=== PATIENT | male | born 1950 | race Caucasian/White ===

== ENCOUNTER 2022-05-24 08:25 | Outpatient (CLI) | payer MEDICARE, SELFPAY ==
--- OUTSIDE RECORDS SUMMARY | 2022-05-24 08:29 | XMS_ITS | Encounter Summary ---
:1950 Author Organization [facility] Address [address] [place] [id number] Care Team Providers Name Role Phone Aung Almaguer Primary Care Provider Encounter Details Date Type Department Care Team Description 03/13/2021 Travel Social History Tobacco Use Types Packs/Day Years Used Date Smoking Tobacco: Former Cigarettes Quit : 2006 Smokeless Tobacco: Never Alcohol Use Standard Drinks/Week Comments Yes 0 (1 standard drink = 0.6 oz pure alcoho l) one case of beer per week Sex Assigned at Date Recorded Not on file COVID-19 Exposure Response Date Recorded In the last month, have you been in contact with No / Unsure 03/13/2021 10:01 AM [facility] someone who was confirmed or suspected to have Coronavirus / COVID-19? documented as of this encounter Plan of Treatment Not on filedocumented as of this encounter Visit Diagnoses Not on filedocumented in this encounter Care Teams Auto Clutch Specialist Relationship Specialty Start Date End Date Aung Almaguer PCP - General Family Practice 03/02/[address] [facility] [address] [place] [id number] documented as of this encounter
--- OUTSIDE RECORDS SUMMARY | 2022-05-24 08:29 | XMS_ITS | Encounter Summary ---
:1950 Author Organization [facility] Address [address] [place] [id number] Care Team Providers Name Role Phone Aung Almaguer Primary Care Provider Reason for Visit Auth/Cert Specialty Diagnoses / Procedures Referred By Contact Refer red To Contact Surgery Diagnoses Prostate cancer (H) Prostate cancer (H) [C61] Sh Periop Services Procedures ZZC LAPAROSCOPY, SURGICAL PROSTATECTOMY, RETROPUBIC RADICAL, W/NERVE SPARING ROBOT-ASSISTED LAPAROSCOPIC PROSTATECTOMY AND PELVIC LYMPH NODE DISSECTION [address] [place] [address] Phone: Referral ID Status Reason Start Date Expiration Date Visits Requ ested Visits Authorized [id number] 1 1 Encounter Details Date Type Department Care Team Description 03/13/2021 - [facility], Prostate cancer (H) 03/15/2021 Encounter [place] [id number] Mason Mcclure MD (Primary Dx) [facility] [address] [place] [address] [phone] [place] [id number] Social History Tobacco Use Types Packs/Day Years [...] / COVID-19? documented as of this encounter Last Filed Vital Signs Vital Sign Reading Time Taken Comments Blood Pressure 144/72 03/15/2021 7:38 AM CDT Pulse 72 03/15/2021 7:38 AM CDT Temperature 35.8 ??C (96.5 ??F) 03/15/2021 7:38 AM CDT Respiratory Rate 16 03/15/2021 12:00 PM CDT Oxygen Saturation 98% 03/15/2021 7:38 AM CDT Inhaled Oxygen Concentration - - Weight 97.2 kg (214 lb 3.2 oz) 03/13/2021 10:24 AM CDT Height 185.4 cm (6' 1) 03/13/2021 10:24 AM CDT Body Mass Index 28.26 03/13/2021 10:24 AM CDT documented in this encounter Discharge Instructions Discharge InstructionsKeysha Bonilla RN - 03/15/2021 11:32 AM CDT Read and refer to the attached education sheets for additional discharge instructions: 1 Discharge instructions for indwelling urinary catheter 2. Discharge instructions for leg bag AttachmentsThe following attachments cannot be sent through Care Everywhere. Indwelling Urinary Catheter, Discharge Instructions (Barbadian)Leg Bag, Discharge Instructions (Barbadian)documented in this encounter Medications at Time of Discharge Medication Sig Dispensed Refills Start Date End Date allopurinol (ZYLOPRIM) Take 300 mg by mouth 0 300 MG tablet daily amLODIPine (NORVASC) 5 Take 5 mg by mouth 0 MG tablet daily cimetidine (TAGAMET) 800 Take 800 mg by mouth 0 MG tablet daily as needed clobetasol (TEMOVATE) Apply topically 2 0 0.05 % external ointment times daily lisinopril Take 20 mg by mouth 0 (PRINIVIL/ZESTRIL) 20 MG daily tablet oxyCODONE (ROXICODONE) 5 Take 1 tablet (5 mg) 12 tablet 0 0 03/15/2021 MG tabletIndications: by mouth every 6 Prostate cancer (H) hours as needed for pain SENNA-docusate sodium Take 1-2 tablets by 30 tablet 0 03/13 (SENNA S) 8.6-50 MG mouth 2 times daily tabletIndications: as needed Prostate cancer (H) (constipation) SILDENAFIL CITRATE PO Take 80 mg by mouth 0 daily as needed ciprofloxacin (CIPRO) Take 1 tablet (500 6 tablet 0 202003/30/2021 500 MG mg) by mouth 2 times tabletIndications: daily for 3 days To Prostate cancer (H) begin taking the day PRIOR to your appointment for catheter removal documented as of this encounter Progress Notes Elizabeth Lafleur PA-C - 03/15/2021 7:54 AM CDT UROLOGY PROGRESS NOTE HPI/SUBJECTIVE: Feeling well this AM. Reports headache last night but has resolved. Tolerating diet, no nausea, +flatus Ambulated last night, not yet this AM Denies pain and feels less distended than yd HTN up to 179/89, o/w VSS Cr 1.27 Hgb 13.0 Akhtar: 1300/1950 ml MADISON: 65/105 ml OBJECTIVE: BP (!) 144/72 (BP Location: Left arm) Pulse 72 Temp (!) 96.5 ??F (35.8 ??C) (Oral) Resp 15 Ht 1.854 m (6' 1) Wt 97.2 kg (214 lb 3.2 oz) SpO2 98% BMI 28.26 kg/m?? Intake/Output Summary (Last 24 hours) at 03/15/2021 0754 Last data filed at 03/15/2021 0643 Gross per 24 hour Intake 680 ml Output 2055 ml Net -1375 ml General appearance shows no deformaties and good grooming. EYES: no icterus HEAD, EARS, NOSE, MOUTH, AND THROAT: atraumatic, normocephalic NECK: symmetric CHEST WALL: symmetric CARDIAC: skin well perfused RESPIRATORY: breathing unlabored ABDOMEN: soft, appropriately tender, non distended, no rebound or guarding; MADISON with bloody output and bandage in place : Akhtar draining clear urine, no clots, flowing well SKIN/HAIR/NAILS: no visible rashes NEUROLOGIC: no focal deficits PSYCHIATRIC: Speech: normal Mood: normal Affect: normal ASSESSMENT: 70 year old M POD#2 s/p RALP/PLND - Dr Spence. Doing well. PLAN: Encourage ambulation ADAT Pain meds PRN Hand irrigate akhtar PRN for clots MADISON to be removed prior to discharge Home with akhtar - nurse to review akhtar cares Follow up with Dr. Spence in [address] cystogram (AVS updated) Dispo: Anticipate discharge mid-day/early afternoon Elizabeth Lafleur PA-C [facility] [email or web address] Text Page (7:30am to 4:30pm) Wilmer Dowling MD - 03/14/2021 10:58 AM CDT UROLOGY ADDENDUM. CLINICALLY STABLE, SLIGHT HEMATURIA, HAD A CLOT CLEARED. MOVING SLOWLY. HE WOULD LIKE TO STAY TILL AM. [facility] AM. Mason Spence MD - 03/14/2021 9:08 AM CDT Urology Denies significant pain. Not OOB yet. Mike clears. Min UOP since 0600 AVSS UOP 300 MADISON 110 Cr 1.27 Hgb 13 NAD Abd s/nt/nd, incisions c/d/i Scant bettina urine per akhtar MADISON serosang No LE edema POD#1 s/p RALP/PLND - hand irrigated Akhtar; small clot removed then ~350cc bettina urine; bladder irrigated easily then - ADAT - bolus 500 ml NS - stop toradol - ambulate - check MADISON Cr - likely home later today - see me in [address] Cystogram Mason Spence MD 9:11 AM 03/14/21 documented in this encounter H&P Notes Taylor Loya - 03/13/2021 10:37 AM CDT I have reviewed the surgical (or preoperative) H&P that is linked to this encounter, and examined the patient. There are no significant changes Source Note - Milad, Provider - 03/08/2021 11:06 AM CDT documented in this encounter Procedure Notes Mason Spence MD - 03/13/2021 6:42 PM CDT Preoperative Diagnosis: Prostate Cancer Postoperative Diagnosis: Prostate Cancer Procedure: 1. Robotic Radical Prostatectomy with bilateral pelvic lymphadenectomy, modifier 22 Surgeon: Mason Spence MD Senior Project Coordinator: Dai Gamez PA-C Date of Procedure: 03/13/21 OPERATIVE INDICATION: Kyree Webster is a 70 year old male with prostate cancer. After understanding various management options he elected to undergo today's procedure. Clinical stage: [id number] PSA: 9 PRIYA: no nodules MRI findings: PIRADS5 mid lateral right PZ Prostate volume: 90g EPE:unlikely SVI:unlikely Urethral length: LNI:unlikely Biopsy grade: 4+4=8 # cores positive: 2 # cores total: 12 Intraoperative findings: Urethra: good length Right nerve sparing:partial resection Left nerve sparing:partial resection Bladder neck sparing: partial Bladder neck reconstruction: anterior Anastomosis tested:watertight Lymphadenopathy:none Accessory obturator artery/size/spared:none Median lobe: small PORT PLACEMENT: Standard 6 ports After discussing all treatment options, the patient elected to proceed with robotic prostatectomy. The patient understands that we will proceed with robotic prostatectomy, but will convert to open prostatectomy if needed. DESCRIPTION OF PROCEDURE: The patient was identified and was brought to the operating room. He was placed on a Gelfoam padded table. After adequate general anesthesia, he was placed in supine position. Pneumatic compression stockings had been applied. All pressure points were adequately padded. Arms were tucked and he was secured to the table. The patient was then prepped and draped in the usual manner. Time out was called. An 18 [place]ian [place] catheter was placed and the bladder was emptied. I made a small supraumbilical incision. Using a Veress needle, pneumoperitoneum was achieved. I then placed an 8 mm port at this site. Initial endoscopic inspection with a 0 degree lens showed no evidence of vascular or visceral injury. There were moderate adhesions in the LLQ likely from previous diverticulitis. The remaining ports were then placed. Two 8 mm ports were placed on either side 10 cm from the umbilical port. A 12 mm port was placed in the right lower quadrant above the anterior superior iliac spine, and a similar location on the left side an 8 mm port was placed. A 5 mm suction port was placed lateral to the camera port on the right side. With all the ports in place the patient was placed in steep Trendelenburg position and the robot was docked. The sigmoid was gently released from the LLQ and the posterior bladder at the cul-de-sac. I then incised the peritoneum at the bladder base and the posterior dissection was carried beneath Denonvillier's fascia to the prostate apex. The anterior rectal fat was very indurated and adherent to the Denonvilier's fascia making this dissection more challenging. The seminal vesicles and vas deferens were identified and dissected free. The fat around the SVs was also very reactive and this dissection was also very difficult; the periprostatic tissues here and elsewhere appeared reactive. He has a history of previous sepsis of unknown source as well as bile leak with peritonitis; I suspect either of these conditions may have contributed to the dense inflammation around the prostate which increased complexity of this procedure as well as time required by >150%. Next peritoneal incisions were made lateral to the medial umbilical ligaments and the bladder was dissected away from the anterior abdominal wall and pubic ramus to expose the prostate. Again these tissue planes were very reactive. The superficial dorsal vein was cauterized and transected. The endopelvic fascia was opened. Incision was made in the lateral prostatic fascia and nerve-sparing was started in the interfascial plane. Next the anterior bladder wall was incised at the level of the bladder neck. The posterior bladder neck was then excised and dissected away from the base of the prostate. There was a small median lobe.The seminal vesicles and vas deferens were now tented up. This exposed the lateral pedicles. I then proceeded to identify the plane between the lateral prostate and the lateral pedicles. The Vessel sealer ad Hem-O-Vincent clips were used and the lateral pedicle was transected. Partial nerve resection was required due to adhesion of the neurovascular bundles to the prostate. The dissection was carried around the apex of the prostate. Next I transected the deep dorsal vein and then oversewed this with a running 3-0 V-vincent suture. The urethra was transected distal to the apex of the prostate and the prostate was placed in a Endocatch. Excellent urethral length was preserved. Arian-Seal was used to achieve further hemostasis. Small piece of left posterior apex and anterior apex were excised as finalmargins. A bilateral pelvic lymph node dissection was done, removing fibrofatty tissue in the external iliac and obturator areas. Bipolar cautery and hemolock clips were used to ligate lymphatic vessels. The obturator nerve was identified and preserved bilaterally. I then proceeded to anastomose the bladder neck to the urethra using a running suture of 3-0 Monocryl on a double armed needle. An 18 Bulgarian [place] catheter was placed and the bladder irrigated well. A good watertight, tension free anastasmosis was obtained. Further inspection at this time showed no further bleeding. The string of the Endocatch was then brought out through the umbilical port site. A15F MADISON drain was placed through the LLQ port site. The robot was then undocked. The laparoscopic ports were removed under vision and the 12 mm assistant professor of philosophy port was closed with an 0 Vicryl using a Dre Thomasen device I slightly extended the supraumbilical incision and the prostate was removed through this site. The fascia was then closed using running 0 Vicryl sutures. The skin incisions were closed using 4-0 monocryl and Dermabond. The needle, sponge and lap counts were correct. The patient remained stable throughout the entire procedure. The estimated blood loss was: 250 ml. The patient toleratedthe procedure well and was sent to the recovery room in stable condition. Catheter can be removed in 14 days after cystogram documented in this encounter Miscellaneous Notes Plan of Care - Keysha Bonilla RN - 03/15/2021 1:29 PM CDT Nurse shift update Patient discharged at approx 1400 to home IV was reportedly discontinued by NA. Denied pain at time of discharge. Belongings returned to patient. Discharge instructions and medications reviewed with patient. Pt refused leg bag so akhtar stayed to bedside drainage bag for discharge. (Leg bag supplies however were added to akhtar supply bag from home incae pt changed his mind. Patient verbalized understanding and all questions were answered. RX meds filled here and given to pt At time of discharge, patient condition was stable and left the unit via w/c escorted by transport NA. Plan of Care - Keysha Bonilla RN - 03/15/2021 12:23 PM CDT 7am Shift Note: POD#2 Robotic Radical Prostatectomy with bilateral pelvic lymphadenectomy Overall improved Akhtar draining adequate amounts of clear yellow urine. No clots today yet seen Clay Temperer reinforced akhtar care education for home with pt.Pt refuses the leg bag - stating just wants his bedside bag for now since doesn't expect to go anywhere after discharge till his next urology appt. MADISON drain which was draining small amounts of sanguinous fluid last night and this am was removed by order by [employer] nurse Sebastien. -Dressing over MADISON site dry/intact. Extra gauze/tape sent home with pt Rigtht sided headache controlled with Scheduled XS Tylenol. Denies any other pain. Abd soft, and much less distended compared to yesterday since passing flatus. BS present. Tolerated reg diet Has 4 port abd sites with a mini lap mid abd lap above umbilical area. All incisions surgically glued D/I. Abdominal incisions with some erythema A&O x4, up with SBA(for guidance with akhtar). Gait is much steadier today. Was in chair x1 and walked in riddle aROUND NURSE DESK X2 this shift Plan for discharge this afternoon Plan of Care - Devante Grady RN - 03/15/2021 6:03 AM CDT A&Ox4, anxious. VSS on RA ex htn. Pain covered w/ scheduled tylenol. PRN Maalox for heartburn. Up A1 GB, W, ambulated in halls in evening. 4 lap sites to abd, all CDI w/ slight ecchymosis. MADISON drainw/ bright bloody output, dressing CDI. BS+, passing gas. Akhtar draining adequate yellow urine. Tolerating low fiber diet. PIV SL, encouraging PO intake. Plan for discharge home w/ akhtar today. Slept between cares. Plan of Care - Allison Miller, RN - 03/14/2021 7:11 PM CDT 3-7p: S/O came at 5p, we had lots of akhtar education. Video, questions, reassured him he is doing fine. Did NOT want bag changed, still wavering on his discharge tomorrow. S/O and RN both told him he is doing more than fine, and will go home in the morning. Plan of Care - Keysha Bonilla RN - 03/14/2021 1:19 PM CDT 7am Shift Note: POD#1 Robotic Radical Prostatectomy with bilateral pelvic lymphadenectomy Oliguria last creative arts therapist (and bladder scanned @0335 with 0ml output) At that time the order was NOTto irrigate akhtar. Dr Spence arrived at bedside. Hand irrigated akhtar resulting in large clot removed and residual output of 350. New prn orders for hand irrigation of akhtar obtained. Urine turned light red with ambulation in riddle but then improved to watermelon at rest MADISON drain present - dressing over MADISON site reinforced by prev creative arts therapist x1; drainage is contained within the most recent ink boundary outline Scheduled XS Tylenol and prn Oxycodone controlling pain well. Abd soft, BS present. No flatus. Tolerate FL brkfs. Diet advanced to low residue Has 4 port abd sites with a mini lap mid abd lap above umbilical area. All incisions surgically glued D/I. Abdominal incisions with some erythema A&O x4, Unsteady gait. Is up w assist of 1/walker /gaitbelt. Was in chair x2 and walked in riddle x2 this shift Pt refused discharge today due to pain, gastric reflux, weakness. Seen at bedside later am by Dr. Dowling who stated discharge can be postponed till tomorrow. Significant other plans on being here this kirt at approx 1700 thus kirt shift to help with for akhtar care teaching samira pt/S.O. including leg bag/bedside bag switching and emptying bags Discharge pending medical progress Addendum: abd distension, clot seen in tubing of akhtar, urine pink. I hand irrigate x2at 1445 . No further clots obtained after irrigation. Has indigestion - Tums given at 1250. Plan of Care - Alena Lugo RN - 03/14/2021 7:00 AM CDT A&O x4, VSS on 2L of 02; Ax1 GB, W. Pt given PRN Tylenol and Ketorolac; denies pain. Akhtar cathter in place with Bettina output. Bladder scanned @0335 with 0ml output. MADISON drain present; Abdominal incisions with some erythema UPSETTER; Urology following. Pending discharge. documented in this encounter Plan of Treatment Not on filedocumented as of this encounter Procedures Procedure Name Priority Date/Time Associated Comments Diagnosis CREATININE FLUID Routine 03/14/2021 11:39 Results for this AM CDT procedure are i n the results section. HEMOGLOBIN Routine 03/14/2021 6:57 Results for this AM CDT procedure are i n the results section. CREATININE Routine 03/14/2021 6:57 Results for this AM CDT procedure are i n the results section. GLUCOSE BY METER Routine 03/14/2021 6:53 Results for this AM CDT procedure are i n the results section. SURGICAL PATHOLOGY EXAM Routine 03/13/2021 1:56 R esults for this PM CDT procedure are i n the results section. PROSTATECTOMY, 03/13/2021 11:06 Prostate cancer ROBOT-ASSISTED, USING DA AM CDT (H) YOLANDE XI, WITH PELVIC LYMPHADENECTOMY TYPE AND SCREEN, ADULT STAT 03/13/2021 10:28 R esults for this AM CDT procedure are i n the results section. POTASSIUM STAT 03/13/2021 10:28 Results for this AM CDT procedure are i n the results section. ABO/RH TYPE AND SCREEN STAT 03/13/2021 10:28 R esults for this AM CDT procedure are i n the results section. LAB RESULT - HIM SCAN 02/22/2021 12:00 AM CDT EKG CARDIAC - HIM SCAN 02/22/2021 12:00 AM CDT documented in this encounter Results Creatinine fluid (03/14/2021 11:39 AM CDT) athologist Signature Creatinine 1.2 mg/dL 03/14/2021 LABORATORY fluid 1:34 PM CDT Specimen Anatomical Collection Method Collection Time Receive d Time (Source) Location / / Volume Laterality Body fluid, unsp DRAIN / Unknown Non-blood 03/14/2021 11:39 08/11/2020 Collection / AM CDT 12:01 PM CDT Unknown Narrative LABORATORY - 03/14/2021 1:34 PM CDT No reference ranges have been establishe d. ??This result should be interpreted in the context of the patient's clinical condit ion and compared to simultaneous measurement in the patient's blood. Mason Spence MD LAB - BODY FLUIDS USAMA GILLETTE Performing Organization Address City/State/ZIP Code [place] [address] [phone] [facility] [address]st floor, Room [address]B (ABNORMAL) Hemoglobin (03/14/2021 6:57 AM CDT) athologist Signature Hemoglobin 13.0 (L) 13.3 - 17.7 03/14/2021 LABORATORY g/dL 7:33 AM CDT Specimen Anatomical Collection Method / Collection Time Recei samira Time (Source) Location / Volume Laterality Blood STRUCTURE OF RIGHT Venipuncture / 03/14/2021 6:57 08/2 11/2020 7:31 UPPER LIMB / Unknown AM CDT AM CDT Unknown Dai Gamez PA-C LAB - BLOOD ORDERABLES Performing Organization Address City/State/ZIP Code Phon e Number [place] [address] [phone] [facility] [address], Room [address]B (ABNORMAL) Creatinine (03/14/2021 6:57 AM CDT) athologist Signature Creatinine 1.27 (H) 0.66 - 03/14/2021 LABORATORY 1.25 mg/dL 7:54 AM CDT GFR Estimate 56 (L) >60 03/14/2021 LABORATORY mL/min/1.7 7:54 AM CDT 3m2 Comment: As of January 28, 2021, eGFR is ca lculated by the CKD-EPI creatinine equation, without race adjustment. eGFR can be inf luenced by muscle mass, exercise, and diet. The reported eGFR is an estimation only and is only applicable if the renal function is stable. Specimen Anatomical Collection Method / Collection Time Recei samira Time (Source) Location / Volume Laterality Blood STRUCTURE OF RIGHT Venipuncture / 03/14/2021 6:57 02/19 7:31 UPPER LIMB / Unknown AM CDT AM CDT Unknown Dai Gamez PA-C LAB - BLOOD ORDERABLES Performing Organization Address City/State/ZIP Code Phon e Number [place] [address] [phone] [facility] [address], [address] Glucose by meter (03/14/2021 6:53 AM CDT) athologist Signature GLUCOSE BY 99 70 - 99 03/14/2021 LABORATORY METER POCT mg/dL 6:59 AM CDT POC Specimen Anatomical Collection Method Collection Time Receive d Time (Source) Location / / Volume Laterality Blood BLOOD SPECIMEN / 03/14/2021 6:53 AM 03/14 6:59 Unknown CDT AM CDT Mason Spence MD [facility] PO[facility] Performing Organization Address City/State/ZIP Code Phon [place] [address] [facility] [address] [place] 1st floor, Room [address]B (ABNORMAL) Surgical Pathology Exam (03/13/2021 1:56 PM CDT) Component Value Ref Test Analysis Performed Pathologis t Range Method Time At Signature Case Report Surgical Pathology Report ? Case: [id number] ? 2021 Authorizing Provider: ??Mason Campbell ? Collected: ? 03/13/2021 01:56 PM ? 1:46 PM LABORATOR Y ? MD Ren ? CDT [facility] ?Received: ?03/14/2021 08:48 AM ? [facility] OR ? Pathologist: ? Austen Gomez MD ? Specimens: ?? A) - Prostate, PROSTATE and [place] vescicles ? B) - Lymp h Node(s), RIGHT PELVIC LYMPH NODES ? C) - Pelv is, ADELITA- PROSTATIC FAT ? D) - Lymp h Node(s), LEFT PELVIC LYMPH NODES ? E) - Pelv is, LEFT APEX MARGIN ? F) - Pelv is, ANTERIOR APEX MARGIN ? Addendum Additional immunohistochemic al stains were performed for P504S/p63 on blocks A29 and A33 confirming the presence of intraductal carcinoma in the prostate in addition to the areas of invasive malignancy. 2021 Addendum These foci consists of broa d dilated ducts with a cribriform pattern of neoplastic cell proliferation positive for racemase with a partially intact cytokeratin positive basal cell layer. This finding is confirmed in intradepartmental consultation. 1:46 PM LABORATOR Y electronically CDT signed by The immunohistochemical dwayne n control is reviewed showing an appropriate reaction pattern for interpretation of the stain. (Austen Gomez MD, 2021) Austen Gomez MD on 2021 at 1:46 PM Final A. Right prostatectomy with bilateral seminal vesicles: 2021 Electronically Diagnosis (see synoptic diagnosis - summary below) 1:46 PM LABORATORY signed by - Prostatic adenocarcinoma, small acinar cell type: CDT Austen Gomez - WHO Grade Group 2 (see comment) MD Armaan on - [place] score 7, patterns 3 + 4 03/18/2021 at - Proportion of prostatic t issue involved by tumor: 2% (see comment for tumor volume calculation) 5:41 PM - Intraductal carcinoma: See comment - Perineural invasion: Present (block A33) - Angiolymphatic invasion: Present (block A29) - Margins: Negative for mal ignancy (nearest margin 0.7 mm from right posterior margin, block A29) B. Right pelvic lymph nodes: - POSITIVE for metastatic pr ostate carcinoma in 1 of 4 lymph nodes (4.5 mm focus without extranodal extension) C. Adelita-prostatic fat: - Negative for malignancy, benign fatty tissue without lymph nodes. D. Left pelvic lymph nodes: - Negative for malignancy in 3 or 3 lymph nodes E. Left apex margin: - Negative for malignancy F. Anterior apex margin: - Negative for malignancy Comment Comment 1: Intradepartmental consultation was obtained. 2021 1:46 PM LABORATORY Comment 2: Immunohistochemic al stains are pending to further evaluate for the presence of intraductal carcinoma, the findings to follow as an addendum to this report. CDT Comment 3: Digital images ar e included in the report with links present at the bottom of the [facility] online report. For best visualization of the images, after opening with left click, right click on the image and select size to fit. Comment 4: Process used to d etermine the tumor volume as percent of total prostate: (1) Total volume of prostate = 56 x 50 x 48 mm = 089996 mm3 (2) Greatest total volume o f tumor = Tumor length over entirety of slices submitted x Average area of tumor in slices (a) Tumor length over sections sliced = (Number of sequential slice s involved by tumor / Total slices) x Total length of prostate sectioned = (12/16) x 56 = 42 mm (b) Greatest tumor area of any slice = 15 sections with tumor, 12 from right posterior lobe with one right anterior lobe and two from the central posterior prostate, with areas of tumor on the slides a s follows, all blocks right posterior unless otherwise speci fied: A9: 4.3 x 3.8 mm = 16 mm area of tumor A11: 9 x 7 mm = 63 mm area of tumor A13: 8 x 6 mm = 48 mm area of tumor A15: 3.3 x 2.0 mm = 6.6 mm area of tumor A17: 1.2 x 0.9 mm = 1.1 mm area of tumor A19: 1.0 x 0.4 mm = 0.4 mm area of tumor A21 7 x 5 mm = 35 mm area of tumor A23: 7 x 5 mm = 35 mm area of tumor (Right anterior lobe se ction) A24: 18 x 6 mm = 108 mm area of tumor A27: 18 x 9 mm = 162 mm area of tumor A29: 18 x 10 mm = 180 mm area of tumor A30: 7 x 4 mm = 28 mm area of tumor (Central posterior sect ion)) A32: 10 x 4 mm = 40 mm area of tumor A33: 18 x 12 mm = 216 mm area of tumor (Central posterior s ection) A38: 10 x 3 mm = 30 mm area of tumor AVERAGE AREA OF TUMOR ON SLIDES = (16+63+48+6.6+1.1+0.4+35+35 +108+162+180+28+40+216+30)/15 x 100 = 65 mm2 average cross sectional area TUMOR VOLUME IN PROSTATE = Length of tumor in slices x average area = 42 mm x 65 mm2 = 2730 mm3 TOTAL PROSTATE VOLUME = 56 x 50 x 48 mm = 058714 mm3 PERCENTAGE OF TUMOR BY VOLUME IN PROSTATE = ([id number]/963863) x 100 = 2.0% Comment 5: The template for prostate cancer on needle biopsy was adapted from the following references. In 2016 the [employer] an[employer] adopted a new system for grading prostate cancer (reference 2) with the benefits of (a) more accurate grade stratification than the current [place] system; (b) simp lified grading system of 5 o pposed to multiple possible scores depending on various [place] pattern combinations; (c) lowest grade 1 as opposed to current practice of [place] score 6, with the potential to reduce overtreatment of indolent prostate cancer. The new grading scheme corre lates with the prior [place] grading system as follows: Grade Group 1 = [place] score 6 or less Grade Group 2 = [place] score 3+4=7 Grade Group 3 = [place] score 4+3 = 7 Grade Group 4 = [place] score 8 Grade Group 5 = [place] score 9-10 REFERENCES (1) [employer] Cancer Protocols and Checklists, December 2011. (2) Richard SANCHEZ, Joann THRASHER, Sadia HILLS, et al. A contemporary prostate cancer grading system: A validating alternative to the Jolanta score. Eur Urol (2015) Synoptic PROSTATE GLAND: Radical Pros tatectomy ??(PROSTATE GLAND: RADICAL PROSTATECTOMY - All Specimens) 2021 Checklist 1:46 PM LABORATORY 8th Edition - Protocol posted: 09/15/2019 CDT SPECIMEN ?? Procedure: ?Radical prostatectomy ?? Prostate Size: ? Prostate Weight (g): ?95 g ? Prostate Greatest Dimension (Centimeters): ?5.6 c m ? Additional Dimension (Centimeters): ?5 cm ? Additional Dimension (Centimeters): ?4.8 cm TUMOR ?? Histologic Type: ?Acinar adenocarcinoma ?? Histologic Grade: ? Grade Group and Gleas on Score: ?Grade group 2 ([place] Score 3 + 4 = 7) ? Percentage of Pattern 4: ?5 % ?? Tumor Quantitation: ?Estimated percentage of prostate involved by tumor: 2.0 % ?? Tumor Quantitation: ?Greatest Dimenion of Dominant Nodule (Millimeters): 18 mm ? Additional Dimension (Millimeters): ?10 mm ? Location of Dominant Nodule: ?Right posterior lob e ?? Extraprostatic Extension (EPE): ?Not identified ?? Urinary Bladder Neck Invasion: ?Not identified ?? Seminal Vesicle Invasion: ?Not identified ?? Treatment Effect: ?No known presurgical therapy ?? Lymphovascular Invasion: ?Present ?? Perineural Invasion: ?Present MARGINS ?? Margins: ?Uninvolved by invasive carcinoma LYMPH NODES ?? Number of Lymph Nodes Involved: ?1 ? Site(s): ?Pelvic NOS ? Laterality: ?Right ?? Size of Largest Metastatic Deposit (Centimeters): ?0 .45 cm ?? Size of Largest Lymph Node Involved (Centimeters): ? 1.5 cm ?? Extranodal Extension: ?Not identified ?? Number of Lymph Nodes Examined: ?7 PATHOLOGIC STAGE CLASSIFICATION (pTNM, AJCC 8th Edition) ? Primary Tumor (pT): ?pT2 ?? Regional Lymph Nodes (pN): ?pN1 ADDITIONAL FINDINGS ?? Additional Findings: ?High-grade prostatic intraepithelial neoplasia (PIN) ?? Additional Findings: ?Inflammation (type): Chronic l ymphocytic Clinical 70 year old male with 2021 Information PSA at outside 1:46 PM [facility] ([facility]) of CDT 10.25. MRI showed Hypointense T2 irregular marginated lesion 1.5 x 1.2 x 0.7 cm right peripheral zone 7 o`clock, mid gland, Summary: Suspicious lesion with decreased T2 signal, restricted diffusion and enhancement in the right peripheral zone. PI-RADS Category = 5 . No evidence of EPE or krystal enlarged nodes. Case Images 2021 1:46 PM LABORATORY CDT Gross A(1). Prostate, PROSTATE and [place] vescicles: 2021 Description The specimen is received in formalin labeled with the patient's name, medical record number, and other identifying information and designated prostate and seminal vesicles. It consists of a 95 g radic 1:46 PM LABORATORY al prostatectomy specimen me asuring 5.0 cm apex to base x 5.6 cm transversely x 4.8 cm anterior to posterior. The right and left seminal vesicles measure 3.2 x 2.0 x 1.1 cm and 3.3 x 1.5 x 1.5 cm respec CDT tively. The right and left v asa deferentia measure 4.5 cm in length x 0.5 cm in diameter and 3.3 cm in length x 0.5 cm diameter, respectively. The left side of the prostate is inked black, and the right side is inked blue. The kendrick dder neck and distal urethral margins are coned and submitted entirely. The specimen is serially sectioned from apex to base into 16 slices, revealing a pink-negron, focally nod ular cut surface. No discret e tumor nodules are noted grossly. Managing Manager sections including the entire posterior aspect are submitted. Summary of Sections: A1 - right seminal vesicle and en face vas deferens margin A2 - left seminal vesicle and en face vas deferens margin A3-A4 - right bladder neck margin A5-A6 - left bladder neck margin A7 - right distal urethral margin A8 - left distal urethral margin A9-slice 1, right posterior Q73-sqyzn 1, left posterior P12-bxvuy 2, right posterior J59-bgbbn 2, left posterior L94-vweju 3, right posterior Q23-mnvzv 3, left posterior I10-edgmy 4, right posterior E96-jjlag 4, left posterior H95-tvucz 5, right posterior A62-swarw 5, left posterior T44-kfvle 6, right posterior T40-sjynl 6, left posterior D86-eeuou 7, right posterior S59-sazed 7, left posterior K93-mjztw 8, right anterior W30-zcoos 8, right posterior D66-ttobl 8, left anterior C62-moacz 8, left posterior Y98-khbbv 9, right posterior J58-lgtzz 9, left posterior A90-mkidp 10, right posterior B29-tnajw 10, central posterior Y67-xtuyd 10, left posterior K55-rwzwb 11, right posterior T54-bryev 11, central posterior V13-pqulc 11, left posterior M22-ljveh 12, right posterior N34-ysqaz 12, central posterior Q63-mhmqg 12, left posterior F98-znhlh 13, right posterior F83-xgygo 13, left posterior J36-nbdqz 14, right posterior E73-wewqz 14, left posterior K35-mzqjb 15, right posterior Z98-inuki 15, left posterior J84-vqsft 16, right posterior B14-baozd 16, left posterior B(2). Lymph Node(s), RIGHT PELVIC LYMPH NODES: The specimen is received in formalin labeled with the patient's name, medical record number and other identifying information and designated right pelvic lymph nodes. It consists of 7 yellow-negron focal ly fatty replaced potential lymph nodes ranging from 0.2-3.2 cm in greatest dimension. The lymph nodes are entirely submitted. Summary of sections: B1-4 intact potential lymph nodes B2-1 bisected potential lymph node B3-B4-1 sectioned potential lymph node B5-B6-1 bisected potential lymph node C(3). Pelvis, ADELITA- PROSTATIC FAT : The specimen is received in formalin labeled with the patient's name, medical record number and other identifying information and designated periprostatic fat. It consists of a 5.0 x 3.5 x 1.0 cm aggr egate of yellow-negron adipose tissue. Sectioning reveals 3 yellow-negron, focally disrupted potential lymph nodes ranging from 0.8-3.0 cm in greatest dimension. The lymph nodes are entirely submitted. Summary of sections: C1-1 intact potential lymph node C2-1 bisected potential lymph node C3-C4-1 bisected potential lymph node D(4). Lymph Node(s), LEFT PELVIC LYMPH NODES: The specimen is received in formalin labeled with the patient's name, medical record number and other identifying information and designated left pelvic lymph nodes. It consists of 5 yellow-negron focall y fatty replaced potential l ymph nodes ranging from 0.5-3.5 cm in greatest dimension. The lymph nodes are entirely submitted. Summary of sections: D1-3 intact potential lymph nodes D2-D3-1 bisected potential lymph node D4-D8-1 sectioned potential lymph node E(5). Pelvis, LEFT APEX MARGIN : The specimen is received in formalin labeled with the patient's name, medical record number and other identifying information and designated left apex margin. It consists of a single 0.8 x 0.4 x 0.4 c m abdi-negron focally cauterize d soft tissue fragment. Entirely submitted in 1 cassette. F(6). Pelvis, ANTERIOR APEX MARGIN: The specimen is received in formalin labeled with the patient's name, medical record number and other identifying information and designated anterior apex margin. It consists of a single 0.8 x 0.5 x 0 .3 cm abdi-negron focally caute rized soft tissue fragment. Entirely submitted in 1 cassette. (NOHEMI Cox ASCP CM) Microscopic A. Sections of the prostate show areas of small acinar type adenocarcinoma identified in the blocks as noted below with the areas of tumor as described. Each of the blocks being from the right posterior 2021 SH Description lobe except where otherwise specified. The majority of the tumor present is [place] pattern 3 with focal areas of cribriform [place] pattern 4 which appears to comprise 5% of the total tumor volume ove 1:46 PM LABORATORY rall. The tumor and area of malignancy is identi fied in the following blocks: CDT A9: 4.3 x 3.8 mm = 16 mm area of tumor A11: 9 x 7 mm = 63 mm area of tumor A13: 8 x 6 mm = 48 mm area of tumor A15: 3.3 x 2.0 mm = 6.6 mm area of tumor A17: 1.2 x 0.9 mm = 1.1 mm area of tumor A19: 1.0 x 0.4 mm = 0.4 mm area of tumor A21 7 x 5 mm = 35 mm area of tumor A23: 7 x 5 mm = 35 mm area of tumor (Right anterior lobe se ction) A24: 18 x 6 mm = 108 mm area of tumor A27: 18 x 9 mm = 162 mm area of tumor A29: 18 x 10 mm = 180 mm area of tumor A30: 7 x 4 mm = 28 mm area of tumor (Central posterior sect ion)) A32: 10 x 4 mm = 40 mm area of tumor A33: 18 x 12 mm = 216 mm area of tumor (Central posterior s ection) A38: 10 x 3 mm = 30 mm area of tumor And limited focus of perineu ral invasion is present in block A33. A single focus of lymphovascular invasion is present in block A29. The margins of resection are clear with the nearest margin being 0.7m m from the right posterior m argin in block A29. No areas of extraprostatic extension are identified. The prostate shows multifocal areas of high-grade prostatic intraepithelial neoplasia in addition to the areas of malignancy. Yaritza luation for intraductal carcinoma is presently pending immunohistochemical stains with an addendum to follow. B. A 4.5 mm focus of metasta tic small acinar type prostatic carcinoma is present in 1 of 4 lymph nodes identified. The tumor in this area shows a sheetlike arrangement of cribriforming glands with nucle ar atypia. No areas of extraprostatic extension are seen. C. The sections show benign fatty tissue with no evidence of lymph nodes. No malignancy is identified. D. No evidence of malignancy is identified in the two lymph nodes confirmed from the tissue submitted. E. The sections show benign prostate tissue with no atypical cellular proliferations or malignancy. F. The sections show benign prostate tissue with no atypical cellular proliferations or malignancy. (Austen Gomez MD, 03/18/2021) Special Immunohistochemical 2021 Stains stains to 1:46 PM LABORATORY [id number] are CDT pending on blocks A29 and A33 to evaluate for the presence of intraductal carcinoma with an addendum to follow with the results of these stains. MCRS Yes (A) N/A 2021 SH 1:46 PM LABORATORY CDT Performing The technical 2021 Labs component of this 1:46 PM LABORATORY testing was completed CDT at [facility] Laboratory Specimen Anatomical Collection Method Collection Time Receive d Time (Source) Location / / Volume Laterality Tissue [place] / 03/13/2021 5:33 PM 2020 8:48 Unknown CDT AM CDT Tissue specimen STRUCTURE OF LYMPH 03/13/2021 6:04 PM 03/14/2021 8:48 (specimen) NODE / Unknown CDT AM CDT Tissue specimen [place] / 03/13/2021 1:56 PM 8:48 (specimen) Unknown CDT AM CDT Tissue specimen STRUCTURE OF LYMPH 03/13/2021 6:04 PM 03/14/2021 8:48 (specimen) NODE / Unknown CDT AM CDT Tissue specimen [place] / 03/13/2021 4:12 PM 8:48 (specimen) Unknown CDT AM CDT Tissue specimen [place] / 03/13/2021 4:14 PM 8:48 (specimen) Unknown CDT AM CDT Narrative This result has an attachment that is no t available. Mason DUMAS - JEB Performing Organization Address City/State/ZIP Code Phon e Number LABORATORY [facility] [place], [place] [address] [facility] [address] 1st floor, Room [address] Adult Type and Screen (03/13/2021 10:28 AM CDT) Patholo gist Method Time Signature ABO/RH(D) O POS 03/13/2021 BLOOD 10:15 AM BANK CDT Antibody Negative Negative 03/13/2021 BLOOD Screen 10:15 AM BANK CDT SPECIMEN [id number] 03/13/2021 BLOOD EXPIRATION 10:15 AM BANK DATE CDT Specimen Anatomical Collection Method / Collection Time Recei samira Time (Source) Location / Volume Laterality Blood STRUCTURE OF RIGHT Venipuncture / 03/13/2021 10:28 UPPER LIMB / Unknown AM CDT 10:34 AM CDT Unknown Sandra Cobian PA-C LAB - BLOOD BANK TEST ORDER Performing Organization Address City/State/ZIP Code Phon e Number BLOOD BANK [address] [place] [address] Potassium (03/13/2021 10:28 AM CDT) P athologist Signature Potassium 3.9 3.4 - 5.3 03/13/2021 LABORATORY mmol/L 10:57 AM CDT Specimen Anatomical Collection Method / Collection Time Recei samira Time (Source) Location / Volume Laterality Blood STRUCTURE OF RIGHT Venipuncture / 03/13/2021 10:28 UPPER LIMB / Unknown AM CDT 10:34 AM CDT Unknown Taylor Loya LAB - BLOOD ORDERABLES Performing Organization Address City/State/ZIP Code Phon e Number LABORATORY [facility] [place], [place] [address] Care [facility] [address] 1[address], [address] LAB RESULT - HIM SCAN (02/22/2021 12:00 AM CDT) Specimen (Source) Anatomical Location Collection Method / Collectio n Time Received Time / Laterality Volume 02/22/2021 Narrative This result has an attachment that is no t available. Provider Scan [facility]AK[facility] LAB TESTING EKG CARDIAC - HIM SCAN (02/22/2021 12:00 AM CDT) Specimen (Source) Anatomical Location Collection Method / Collectio n Time Received Time / Laterality Volume 02/22/2021 Narrative This result has an attachment that is no t available. Provider Scan ECG ORDERABLES documented in this encounter Visit Diagnoses Diagnosis Prostate cancer (H) - Primary Malignant neoplasm of prostate Prostate cancer (H) Malignant neoplasm of prostate documented in this encounter Admitting Diagnoses Diagnosis Prostate cancer (H) Malignant neoplasm of prostate documented in this encounter Administered Medications Inactive Administered Medications - up to 3 most recent administrations Medication Order MAR Action Action Date Dose Rate Site 0.9% sodium chloride BOLUS New Bag 03/14/2021 9:18 AM CDT 500 mLs 125 mL/hr Intravenous, 500 mL, ONCE, at 125 mL/hr, Administer over 4 Hours, On Fri03/14/21 at 0900, For 1 dose acetaminophen (TYLENOL) tablet 975 mg Given 03/13/2021 10:34 AM CDT 975 mg 975 mg, Oral, ONCE, On Fri03/13/21 at 1030, For 1 dose, Maximum acetaminophen dose from all sources = 75 mg/kg/day not to exceed 4 grams/day., Pre-procedure acetaminophen (TYLENOL) tablet 975 mg Given 03/15/2021 8:34 AM CDT 975 mg 975 mg, Oral, EVERY 6 HOURS RT, First dose on Fri03/13/21 at 2000, For 3 days, Administer for multimodal surgical pain management. Maximum acetaminophen dose from all sources = 75 mg/kg/day not to exceed 4 grams/day. Given 03/15/2021 2:13 AM CDT 975 mg Given 03/14/2021 9:04 PM CDT 975 mg alum & mag hydroxide-simethicone (MAALOX) Given 2020 11:06 PM CDT 2 tablets 200-200-25 MG chewable tablet 2 tablet 2 tablet, Oral, EVERY 6 HOURS PRN, indigestion, Starting on Fri03/14/21 at 1309 amLODIPine (NORVASC) tablet 5 mg Given 03/15/2021 8:35 AM CDT 5 mg 5 mg, Oral, DAILY, First dose on Fri03/13/21 at 2000 Given 03/14/2021 9:09 AM CDT 5 mg Given 03/13/2021 9:01 PM CDT 5 mg calcium carbonate (TUMS) chewable tablet 500 Given 2:52 PM CDT 500 mg mg 500 mg, Oral, DAILY PRN, heartburn, Starting on Fri03/14/21 at 1309 ceFAZolin (ANCEF) 1 g vial to attach to NS 100 New Bag 0 03/14/2021 2:48 PM CDT 1 g ml bag for ADULT or 50 ml bag for PEDS Routine, 1 g, Intravenous, EVERY 8 HOURS, First dose on Fri03/13/21 at 2200, For 3 doses, Indications: Perioperative Pharmacoprophylaxis New Bag 03/14/2021 6:25 AM CDT 1 g New Bag 03/13/2021 9:01 PM CDT 1 g HYDROmorphone (DILAUDID) injection 0.2 m g 0.2 mg, Intravenous, EVERY 2 HOURS PRN, other, moderate pain (pain rating 4-6) IF patient unable to take oral pain medication or pain no t controlled with oral analgesics, Starting on Fri03/13/21 at 1 948, Hold IV PRN opioid dose for analgesic side effects. Notify provider to assess for uncontroll ed pain or analgesic side effects. HYDROmorphone (DILAUDID) injection 0.4 m g 0.4 mg, Intravenous, EVERY 2 HOURS PRN, other, severe pain (pain rating 7-10) IF patient unable to take oral pain medication or pain no t controlled with oral analgesics, Starting on Fri03/13/21 at 1 948, Hold IV PRN opioid dose for analgesic side effects. Notify provider to assess for uncontroll ed pain or analgesic side effects. ketorolac (TORADOL) injection 15 mg Given 03/14/2021 6:25 AM CDT 15 mg 15 mg, Intravenous, EVERY 6 HOURS, First dose on Fri03/13/21 at 2300, For 5 days, Can cause pain on injection. If ordered intravenously (IV) : administer through a running maintenance fluid over 1 minute followed by a flush. If patient complains of pain on injection, may dilute 15-30 mg in 5 mL and push over 1 to 2 minutes. Given 03/13/2021 10:51 PM CDT 15 mg labetalol (NORMODYNE/TRANDATE) injection 5 mg Given 03/13/2021 6:47 PM CDT 5 mg 5 mg, Intravenous, EVERY 5 MIN PRN, other, for Systemic Blood Pressure greater than 160 mmHg and Heart Rate greater than 60 bpm, Starting on Fri03/13/21 at 1820, For 4 doses, For PACU USE ONLY. Please call Anesthesiologist PRIOR to administration. PROTECT FROM LIGHT.For ordered doses up to 80 mg, give IV Push undiluted. Give each 20 mg over 2 minutes. lactated ringers infusion New Bag 03/13/2021 5:50 PM CDT at 25 mL/hr, Intravenous, CONTINUOUS, IF patient NOT on dialysis., Pre-procedure, Starting on Fri03/13/21 at 1030, Until Fri03/13/21 at 1840 New Bag 03/13/2021 12:25 PM CDT New Bag 03/13/2021 10:49 AM CDT 25 mL/hr lisinopril (ZESTRIL) tablet 20 mg Given 03/15/2021 8:35 AM CDT 20 mg 20 mg, Oral, DAILY, First dose on Fri03/14/21 at 0800 Given 03/14/2021 9:09 AM CDT 20 mg naloxone (NARCAN) injection 0.2 mg 0.2 mg, Intravenous, EVERY 2 MIN PRN, op ioid reversal, Starting on Fri03/13/21 at 1958, Administer intravenous route when available and notify provider when administered. For unintended sedation or respiratory depression if all of the below criteria are met: ~ respiratory rate LES S than or EQUAL to 8. ~SaO2 less than 92% and or/end-tidal CO2 is greater than 50. ~ the patient is receiving an opioid, has unintended sedations assessed as RASS (-3), and is cur rently not on mechanical ventilation. RASS scale moderate (-3) is movement or eye opening to voice but no eye contact. Patient Monitoring Once the patient has demonstrated a response to the naloxone, continue to monitor respiratory rate, depth, oxygen saturation and end-tidal CO2 (if available) every 15 mi nutes x 2, then every 30 minutes x 2, then every 1 hour x 1 after each naloxone dose. Consider tr ansfer to ICU if patient respiratory parameters have not improved after 4 nalox one doses. For ordered IV doses 0.1-2mg give IVP. Give each 0.4mg over 15 seconds in emergency situations. For non-emergent situations further dilu te in 9mL of NS to facilitate titration of response. naloxone (NARCAN) injection 0.2 mg 0.2 mg, Intramuscular, EVERY 2 MIN PRN, opioid reversal, Starting on Fri03/13/21 at 1957, Administer intramuscular if an int ravenous route is not available and notify provider when administered. For unintend ed sedation or respiratory depression if all of the below criteria are met: ~ respiratory rate LESS than or EQUAL to 8. ~SaO2 less than 92% and or/end-tidal CO2 is greater th an 50. ~ the patient is receiving an opioid, has unintended sedations assessed as RASS (-3), and is currently not on mechanical ventilation. RASS scale moderate (-3) is movement or eye opening to voice but no eye contact. Patient Monitoring Once the patient has demonstrated a response to the naloxone, continue to m onitor respiratory rate, depth, oxygen saturation and end-tidal CO2 (if availab le) every 15 minutes x 2, then every 30 minutes x 2, then every 1 hour x 1 after each naloxone dose. Consider transfer to ICU if patient respiratory parameters have not improved after 4 naloxone doses. For ordered IV doses 0.1-2mg give IVP. Give each 0.4mg over 15 seconds in emergency situations. For non -emergent situations further dilute in 9mL of NS to facilitate titration of response. naloxone (NARCAN) injection 0.4 mg 0.4 mg, Intravenous, EVERY 2 MIN PRN, op ioid reversal, Starting on Fri03/13/21 at 1957, Administer intravenous route when available and notify provider when administered. For unintended sedation or respiratory depression if all of the below criteria are met: ~ respiratory rate LES S than or EQUAL to 8. ~ SaO2 less than 92% and or/end-tidal CO2 is greater than 50. ~ the patient is receiving an opioid, has unintended sedation assessed as RASS (-4 ) or (-5) and patient is currently not on mechanical ventilation. RASS scale (-4) is deep sedation with no response to voice but movement or eye opening to physical stimulation. R ASS scale (-5) is unarousable. Patient Monitoring Once the patient has demonstrated a response to the naloxone, continue to monitor respiratory rate, depth, oxygen saturation and end-tidal CO2 (if available) every 15 mi nutes x 2, then every 30 minutes x 2, then every 1 hour x 1 after each naloxone dose. Consider tr ansfer to ICU if patient respiratory parameters have not improved after 4 nalox one doses. For ordered IV doses 0.1-2mg give IVP. Give each 0.4mg over 15 seconds in emergency situations. For non-emergent situations further dilu te in 9mL of NS to facilitate titration of response. naloxone (NARCAN) injection 0.4 mg 0.4 mg, Intramuscular, EVERY 2 MIN PRN, opioid reversal, Starting on Fri03/13/21 at 1957, Administer intramuscular if an int ravenous route is not available and notify provider when administered. For unintend ed sedation or respiratory depression if all of the below criteria are met: ~ res piratory rate LESS than or EQUAL to 8. ~ SaO2 less than 92% and or/end-tidal CO2 is greater chante n 50. ~ the patient is receiving an opioid, has unintended sedation assessed as RASS (-4) or (-5) and patient is currently not on mechanical ventilation. RA SS scale (-4) is deep sedation with no response to voice but movement or eye opening to physical stimulation. RASS scale (-5) is unarousa ble. Patient Monitoring Once the patient has demonstrated a response to the nalox one, continue to monitor respiratory rate, depth, oxygen saturation and end-tidal CO2 (if availab le) every 15 minutes x 2, then every 30 minutes x 2, then every 1 hour x 1 after each naloxone dose. Consider transfer to ICU if patient respiratory parameters have not improved after 4 naloxone doses. For ordered IV doses 0.1-2mg give IVP. Give each 0.4mg over 15 seconds in emergency situations. For non -emergent situations further dilute in 9mL of NS to facilitate titration of response. ondansetron (ZOFRAN) injection 4 mg 4 mg, Intravenous, EVERY 6 HOURS PRN, nausea, vomiting , Administer over 2-5 Minutes, Starting on Fri03/13/21 at 1947, This is Step 1 of nausea and vomiting management. If nausea not resolved in 15 minutes, go t o Step 2 prochlorperazine (COMPAZINE). Irritant. For ordered IV do ses 0.1-4 mg, give IV Push undiluted over 2-5 minutes. ondansetron (ZOFRAN-ODT) ODT tab 4 mg Given 03/13/2021 10:50 PM CDT 4 mg 4 mg, Oral, EVERY 6 HOURS PRN, nausea, vomiting, Starting on Fri03/13/21 at 1948, This is Step 1 of nausea and vomiting management. If nausea not resolved in 15 minutes, go to Step 2 prochlorperazine (COMPAZINE). Do not push through foil backing. Peel back foil and gently remove. Place on tongue immediately. Administration with liquid unnecessary With dry hands, peel back foil backing and gently remove tablet. Do not push oral disintegrating tablet through foil backing. Administer immediately on tongue and oral disintegrating tablet dissolves in seconds, then swallow with saliva. Liquid not required. oxyCODONE (ROXICODONE) tablet 10 mg 10 mg, Oral, EVERY 4 HOURS PRN, severe p ain, (pain rating 7-10), Starting on Fri03/13/21 at 8, Hold oral PRN dose for analgesic side effects. Notify provider to assess for uncontrolled pain or analgesic side effects . Hold while on IV LEAK DETECTOR or with regular IV opioid dosing. oxyCODONE (ROXICODONE) tablet 5 mg Given 03/14/2021 11:44 AM CDT 5 mg 5 mg, Oral, EVERY 4 HOURS PRN, other, moderate pain (pain rating 4-6), Starting on Fri03/13/21 at 1948, Hold oral PRN dose for analgesic side effects. Notify provider to assess for uncontrolled pain or analgesic side effects. Hold while on IV LEAK DETECTOR or with regular IV opioid dosing. Given 03/14/2021 10:08 AM CDT 5 mg prochlorperazine (COMPAZINE) injection 5 mg 5 mg, Intravenous, EVERY 6 HOURS PRN, nausea, vomiting , Administer over 1-2 Minutes, Starting on Fri03/13/21 at 1948, This is Step 2 of nausea and vomiting management. If nausea not resolved in 15 -30 minutes, Notify provider. For ordered IV doses 0.1-10 mg, give IV push undiluted, each 5 mg over 1 minute. prochlorperazine (COMPAZINE) tablet 5 mg 5 mg, Oral, EVERY 6 HOURS PRN, nausea, v omiting, Starting on Fri03/13/21 at 1948, This is Step 2 of nausea and vomiting ma bharathi. If nausea not resolved in 15-30 minutes, Notify provider. sodium chloride (PF) 0.9% PF flush 3 mL Given 03/14/2021 8:28 PM CDT 3 mLs 3 mL, Intracatheter, EVERY 8 HOURS, First dose on Fri03/13/21 at 2000, to lock peripheral IV dormant line sodium chloride 0.9% infusion Restarted 03/14/2021 1:16 PM CDT 75 mL/hr at 75 mL/hr, Intravenous, CONTINUOUS, Starting on Fri03/13/21 at 2000, Until Fri03/15/21 at 1534 New Bag 03/13/2021 8:09 PM CDT 75 mL/hr documented in this encounter Active and Recently Administered Medications Times are shown in CDT. Scheduled Medication Order 03/13/2021 03/14/2021 03/15/2021 0.9% sodium chloride BOLUS (COMPLETED) 0 918 (New Bag - Provider: Keysha Bonilla RN)1315 (Stopped - Provider: Keysha Bonilla RN) Intravenous, 500 mL, ONCE, at 125 mL/hr, Administer over 4 Hours, On Fri03/14/21 at 0900, For 1 dose acetaminophen (TYLENOL) tablet 975 mg (COMPLETED) 1034 (Given - Provider: Radha Fay RN) 975 mg, Oral, ONCE, On Fri03/13/21 at 10 30, For 1 dose, Maximum acetaminophen dose from all sources = 75 mg/kg/day not to exceed 4 grams/day., Pre-procedure acetaminophen (TYLENOL) tablet 975 mg 2100 (Given - Pr ovider: Alena Lugo RN) 0334 (Given - Provider: Alena romero RN)0909 (Given - Provider: Keysha Bonilla RN)1451 (Given - Provider: Keysha Bonilla RN - Comment: schedule tylenol for abd discomfort)2104 (Given - Provider: Devante Grady RN) 0213 (Given - Provider: Devante Grady RN)0834 (Given - Provider: Keysha Bonilla LIUDMILA)1400 (Canceled Entry - Provider: Orders Generic Provider - Comment: Automatically canceled at discontinue of medication order) 975 mg, Oral, EVERY 6 HOURS, First dose on Fri03/13/21 at 2000, For 3 days, Administer for multimodal surgical pain management. Maximum acetaminophen dose from all sources = 75 mg/kg/day not to exceed 4 grams/day. amLODIPine (NORVASC) tablet 5 mg 210 (Given - Provider: Daniela Lugo RN) 0909 (Given - Provider: Keysha Bonilla, ILUDMILA) 0835 (Given - Provider: Keysha Bonilla, LIUDMILA) 5 mg, Oral, DAILY, First dose on Fri03/13/21 at 2000 ceFAZolin (ANCEF) 1 g vial to attach to NS 100 ml bag for ADULT or 50 ml bag for PEDS (COMPLETED) 210 (New Bag - Provider: Alena Lugo RN) 0625 (New Bag - Provider: Alena Lugo RN)1448 (New Bag - Provider: Keysha Bonilla RN) Routine, 1 g, Intravenous, EVERY 8 HOURS , First dose on Fri03/13/21 at 2200, For 3 doses, Indications: Perioperative Pharmacoprophylaxis ceFAZolin (ANCEF) intermittent infusion 2 g in 100 mL dextrose PRE-MIX (COMPLETED) 1035 (Handoff - Provider: Radha hope RN)1128 (Given - Provider: Joann Taylor APRN PATIENT SERVICES REP)1531 (Given - Provider: Margie Nieves APRN PATIENT SERVICES REP) Routine, 2 g, Intravenous, PRE-OP/PRE-MN OCEDURE, Starting on Fri03/13/21 at 1011, For 1 dose, Give first dose within 1 hour PRIOR to incision. If patient weight is greater than or equal to 120 kg increa se dose to 3 g., Indications: Perioperative Pharmacoprophyla xis, Pre-procedure ketorolac (TORADOL) injection 15 mg (CANCELED) 2251 (G iven - Provider: Alena Luog RN) 0625 (Given - Provider: Alena Lugo RN) 15 mg, Intravenous, EVERY 6 HOURS, First dose on Fri03/13/21 at 2300, For 5 days, Can cause pain on injection. If ordered intravenously (IV) : administer through a running maintenance fluid over 1 minut e followed by a flush. If patient compla ins of pain on injection, may dilute 15- 30 mg in 5 mL and push over 1 to 2 minutes. lisinopril (ZESTRIL) tablet 20 mg 0909 (Given - Provider: Keysha Bonilla, LIUDMILA) 0835 (Given - Provider: Keysha Bonilla RN) 20 mg, Oral, DAILY, First dose on Fri03/14/21 at 0800 sodium chloride (PF) 0.9% PF flush 3 mL 2229 (Not Give n - Provider: Corrie Catalan RN - Reason: IV Infusing) 0403 (Not Given - Provider: Corrie Catalan RN - Reason: IV Infusing)1200 (Not Given - Provider: Keysha Bonilla RN - Reason: IV Infusing)2028 (Given - Provider: Devante Grady RN) 0511 (Canceled Entry - Provider: Devante Grady RN)1200 (Canceled Entry - Provider: Orders Generic Provider - Comment: Automatically canceled at discontinue of medication order) 3 mL, Intracatheter, EVERY 8 HOURS, Firs t dose on Fri03/13/21 at 2000, to lock peripheral IV dormant line Continuous Medication Order 03/13/2021 03/14/2021 03/15/2021 lactated ringers infusion (CANCELED) 1049 (New Bag - P rovider: Radha Fay RN)1106 (Canceled Entry - Provider: Joann Taylor APRN CRNA - Comment: Switch to gravity)1107 (Canceled Entry - Provider: Joann Taylor APRN CRNA) at 25 mL/hr, Intravenous, CONTINUOUS, IF patient NOT on dialysis., Pre- procedure, Starting on Fri03/13/21 at 1030, Until Fri03/13/21 at 1840 1224 (Paused - Provider: Joann Taylor APRN CRNA - Comment: Switch to gravity)1225 (New Bag - Provider: Joann Taylor APRN CRNA)1750 (New Bag - Provider: Margie R Ezequiel, MANAGER [place] PATIENT SERVICES REP) 1827 (Anesthesia Volume Adju stment - Provider: Margie Nieves, COSMO PATIENT SERVICES REP)2028 (Stopped - Provider: Alena Lugo, LIUDMILA) sodium chloride 0.9% infusion 2008 (New Bag - Provider: Lashaun Lugo, LIUDMILA) 0922 (Stopped - Provider: Keyhsa Bonilla RN - Comment: stopped while 500cc fluid bolus infusing]]])1316 (Restarted - Provider: Keysha Bonilla, LIUDMILA)1700 (Stopped - Provider: Keysha Bonilla RN - Comment: IV fluis reportedly stopped this kirt shift b at 75 mL/hr, Intravenous, CONTINUOUS, St arting on Fri03/13/21 at 2000, Until Fri03/15/21 at 1534 y other nurse (not story writer)) PRN Medication Order 03/13/2021 03/14/2021 03/15/2021 alum & mag hydroxide-simethicone (MAALOX ) 200-200-25 MG chewable tablet 2 tablet 2306 (Given - Provider: Devante Grady RN) 2 tablet, Oral, EVERY 6 HOURS PRN, indigestion, Starti ng on Fri03/14/21 at 1309 bupivacaine (MARCAINE) 0.5% injection MDV (CANCELED) 1 837 (Given - Provider: Mason Spence MD) PRN, Starting on Fri03/13/21 at 1837, Intra-procedure calcium carbonate (TUMS) chewable tablet 500 mg 1452 (Given - Provider: Keysha Bonilla RN) 500 mg, Oral, DAILY PRN, heartburn, Starting on Fri03/14/21 at 1 309 HYDROmorphone (DILAUDID) injection 0.2 mg(Linked Group 1) 0.2 mg, Intravenous, EVERY 2 HOURS PRN, other, moderate pain (pain rating 4-6) IF patient unable to take oral pain medication or pain not controlled with oral analgesics, Starting on Fri03/13/21 at 1948 , Hold IV PRN opioid dose for analgesic side effects. Notify provider to assess for uncontrolled pain or analgesic side effects. HYDROmorphone (DILAUDID) injection 0.4 mg(Linked Group 1) 0.4 mg, Intravenous, EVERY 2 HOURS PRN, other, severe pain (pain rating 7-10) IF patient unable to take oral pain medication or pain not controlled with oral analgesics, Starting on Fri03/13/21 at 1947, Hold IV PRN opioid dose for analgesic s desmond effects. Notify provider to assess for uncontrolled pain or analgesic side effects. labetalol (NORMODYNE/TRANDATE) injection 5 mg (CANCELE D) 1846 (Given - Provider: Jason Hammonds RN) 5 mg, Intravenous, EVERY 5 MIN PRN, othe r, for Systemic Blood Pressure greater than 160 mmHg and Heart Rate greater than 60 bpm, Starting on Fri03/13/21 at 1820, For 4 doses, For PACU USE ONLY. Please c all Anesthesiologist PRIOR to administra tion. PROTECT FROM LIGHT.For ordered doses up to 80 mg, give IV Push undiluted. Give each 20 mg over 2 minutes. lidocaine (LMX4) cream Topical, EVERY 1 HOUR PRN, pain, with VA D insertion, Starting on Fri03/13/21 at 1947, Apply at least 30 minutes prior to VAD insertion in divided doses as needed for size of site for insertion. MAX Dose : 2.5 g (?? of 5 g tube) Do NOT give if patient has a history of allergy to any local anesthetic or any magdiel product. Do NOT use both lidocaine intradermal/subcutaneous injection and the lidocaine cream on the same site. lidocaine (XYLOCAINE) 5 % ointment Topical, 4 TIMES DAILY PRN, other, ureth ral irritation, Starting on Fri03/13/21 at 1947, Apply to urethral meatus. lidocaine 1 % 0.1-1 mL 0.1-1 mL, Other, EVERY 1 HOUR PRN, mild pain with VAD insertion, Starting on Fri03/13/21 at 1947, MAX dose 1 mL subcutaneous OR intradermal along the side of the vein in divided doses as needed for VAD insertion. Do NOT give if patient has a history of allergy to any local anesthetic or any magdiel product. Do NOT use both lidocaine intradermal/subcutaneous injection and the lidocaine cream on the same site. naloxone (NARCAN) injection 0.2 mg(Linked Group 2) 0.2 mg, Intravenous, EVERY 2 MIN PRN, op ioid reversal, Starting on Fri03/13/21 at 1957, Administer intravenous route when available and notify provider when administered. For unintended sedation or resp iratory depression if all of the below c riteria are met: ~ respiratory rate LESS than or EQUAL to 8. ~SaO2 less than 92% and or/end-tidal CO2 is greater than 50. ~ the patient is receiving an opioid, dickson s unintended sedations assessed as RASS (-3), and is currently not on mechanical ventilation. RASS scale moderate (-3) is movement or eye opening to voice but no eye contact. Patient Monitoring Once the patient has demonstrated a response to the naloxone, continue to monitor respiratory rate, depth, oxygen saturation and end-tidal CO2 (if available) every 15 minutes x 2, then every 30 minutes x 2, the n every 1 hour x 1 after each naloxone d ose. Consider transfer to ICU if patient respiratory parameters have not improved after 4 naloxone doses. For ordered IV doses 0.1-2mg give IVP. Give each 0.4mg o jorge 15 seconds in emergency situations. For non-emergent situations further dilute in 9mL of NS to facilitate titration of response. naloxone (NARCAN) injection 0.2 mg(Linked Group 2) 0.2 mg, Intramuscular, EVERY 2 MIN PRN, opioid reversal, Starting on Fri03/13/21 at 1957, Administer intramuscular if an intravenous route is not available and notify provider when administered. For uni ntended sedation or respiratory depressi on if all of the below criteria are met: ~ respiratory rate LESS than or EQUAL to 8. ~SaO2 less than 92% and or/end-tidal CO2 is greater than 50. ~ the patient is receiving an opioid, has unintended sed ations assessed as RASS (-3), and is currently not on mechanical ventilation. RASS scale moderate (-3) is movement or eye opening to voice but no eye contact. Pat ient Monitoring Once the patient has dem onstrated a response to the naloxone, continue to monitor respiratory rate, depth, oxygen saturation and end-tidal CO2 (if available) every 15 minutes x 2, then e very 30 minutes x 2, then every 1 hour x 1 after each naloxone dose. Consider transfer to ICU if patient respiratory parameters have not improved after 4 naloxone doses. For ordered IV doses 0.1-2mg giv e IVP. Give each 0.4mg over 15 seconds i n emergency situations. For non-emergent situations further dilute in 9mL of NS to facilitate titration of response. naloxone (NARCAN) injection 0.4 mg(Linked Group 2) 0.4 mg, Intravenous, EVERY 2 MIN PRN, op ioid reversal, Starting on Fri03/13/21 at 1957, Administer intravenous route when available and notify provider when administered. For unintended sedation or resp iratory depression if all of the below c riteria are met: ~ respiratory rate LESS than or EQUAL to 8. ~ SaO2 less than 92% and or/end-tidal CO2 is greater than 50. ~ the patient is receiving an opioid, h as unintended sedation assessed as RASS (-4) or (-5) and patient is currently not on mechanical ventilation. RASS scale (-4) is deep sedation with no response to voice but movement or eye opening to phy sical stimulation. RASS scale (-5) is un arousable. Patient Monitoring Once the patient has demonstrated a response to the naloxone, continue to monitor respiratory rate, depth, oxygen saturation and end -tidal CO2 (if available) every 15 minut es x 2, then every 30 minutes x 2, then every 1 hour x 1 after each naloxone dose. Consider transfer to ICU if patient respiratory parameters have not improved af ter 4 naloxone doses. For ordered IV dos es 0.1-2mg give IVP. Give each 0.4mg over 15 seconds in emergency situations. For non-emergent situations further dilute in 9mL of NS to facilitate titration of response. naloxone (NARCAN) injection 0.4 mg(Linked Group 2) 0.4 mg, Intramuscular, EVERY 2 MIN PRN, opioid reversal, Starting on Fri03/13/21 at 1957, Administer intramuscular if an intravenous route is not available and notify provider when administered. For uni ntended sedation or respiratory depressi on if all of the below criteria are met: ~ respiratory rate LESS than or EQUAL to 8. ~ SaO2 less than 92% and or/end- tidal CO2 is greater than 50. ~ the patient i s receiving an opioid, has unintended se dation assessed as RASS (-4) or (-5) and patient is currently not on mechanical ventilation. RASS scale (-4) is deep sedation with no response to voice but moveme nt or eye opening to physical stimulatio n. RASS scale (-5) is unarousable. Patient Monitoring Once the patient has demonstrated a response to the naloxone, continue to monitor respiratory rate, depth, o xygen saturation and end-tidal CO2 (if a vailable) every 15 minutes x 2, then every 30 minutes x 2, then every 1 hour x 1 after each naloxone dose. Consider transfer to ICU if patient respiratory paramet ers have not improved after 4 naloxone d oses. For ordered IV doses 0.1-2mg give IVP. Give each 0.4mg over 15 seconds in emergency situations. For non-emergent situations further dilute in 9mL of NS to facilitate titration of response. ajagvmif-kvhuvsbutl-fuujcfgkc (NEOSPORIN) ointment Topical, 4 TIMES DAILY PRN, urethral irr itation, Starting on Fri03/13/21 at 1947, Apply to urethral meatus. ondansetron (ZOFRAN) injection 4 mg(Linked Group 3) 22 50 (See Alternative - Provider: Alena Lugo RN) 4 mg, Intravenous, EVERY 6 HOURS PRN, na usea, vomiting, Administer over 2-5 Minutes, Starting on Fri03/13/21 at 1947, This is Step 1 of nausea and vomiting management. If nausea not resolved in 15 minut es, go to Step 2 prochlorperazine (NIRMALA ZINE). Irritant. For ordered IV doses 0.1-4 mg, give IV Push undiluted over 2-5 minutes. ondansetron (ZOFRAN-ODT) ODT tab 4 mg(Linked Group 3) 2250 (Given - Provider: Alena Lugo RN) 4 mg, Oral, EVERY 6 HOURS PRN, nausea, v omiting, Starting on Fri03/13/21 at 1947, This is Step 1 of nausea and vomiting management. If nausea not resolved in 15 minutes, go to Step 2 prochlorperazine (C OMPAZINE). Do not push through foil back ing. Peel back foil and gently remove. Place on tongue immediately. Administration with liquid unnecessary With dry hands, peel back foil backing and gently remov e tablet. Do not push oral disintegratin g tablet through foil backing. Administer immediately on tongue and oral disintegrating tablet dissolves in seconds, then swallow with saliva. Liquid not required. oxyCODONE (ROXICODONE) tablet 10 mg(Linked Group 4) 1008 (See Alternative - Provider: Keysha Bonilla RN)1144 (See Alternative - Provider: Keysha Bonilla RN) 10 mg, Oral, EVERY 4 HOURS PRN, severe p ain, (pain rating 7-10), Starting on Fri03/13/21 at 1947, Hold oral PRN dose for analgesic side effects. Notify provider to assess for uncontrolled pain or analge sic side effects. Hold while on IV LEAK DETECTOR or with regular IV opioid dosing. oxyCODONE (ROXICODONE) tablet 5 mg(Linked Group 4) 1008 (Given - Provider: Keysha Bonilla RN - Comment: upper abd pain, akhtar site abd)1144 (Given - Provider: Keyhsa Bonilla RN - Comment: AOOB PAIN AND AKHTAR CATH SITE PAIN - OXY REPEATED) 5 mg, Oral, EVERY 4 HOURS PRN, other, mo derate pain (pain rating 4-6), Starting on Fri03/13/21 at 1947, Hold oral PRN dose for analgesic side effects. Notify provider to assess for uncontrolled pain or analgesic side effects. Hold while on IV LEAK DETECTOR or with regular IV opioid dosing. prochlorperazine (COMPAZINE) injection 5 mg(Linked Group 5) 5 mg, Intravenous, EVERY 6 HOURS PRN, na usea, vomiting, Administer over 1-2 Minutes, Starting on Fri03/13/21 at 1947, This is Step 2 of nausea and vomiting management. If nausea not resolved in 15-30 mi nutes, Notify provider. For ordered IV d oses 0.1-10 mg, give IV push undiluted, each 5 mg over 1 minute. prochlorperazine (COMPAZINE) tablet 5 mg(Linked Group 5) 5 mg, Oral, EVERY 6 HOURS PRN, nausea, v omiting, Starting on Fri03/13/21 at 1947, This is Step 2 of nausea and vomiting management. If nausea not resolved in 15-30 minutes, Notify provider. senna-docusate (SENOKOT-S/PERICOLACE) 8.6-50 MG per tablet 1 tab let 1 tablet, Oral, 2 TIMES DAILY PRN, const ipation, Starting on Fri03/13/21 at 1947, To prevent constipation. Hold for loose stools Hold for loose stools. sodium chloride (PF) 0.9% PF flush 3 mL 3 mL, Intracatheter, EVERY 1 MIN PRN, li ne flush, other, to ensure patency or to lock dormant line, Starting on Fri03/13/21 at 1948 sodium chloride 0.9% (bag) irrigation (CANCELED) 1216 (Given - Provider: Mason Spence MD) PRN, Starting on Fri03/13/21 at 1216, Intra-procedure sodium chloride 0.9% (bottle) irrigation (CANCELED) 11 46 (Given - Provider: Mason Spence MD) PRN, Starting on Fri03/13/21 at 1146, Intra-procedure sterile water (bottle) irrigation (CANCELED) 1216 (Giv en - Provider: Mason Spence MD) PRN, Intra-procedure, Starting on Fri at 1216, Until Fri03/13/21 at 1840 Linked Groups Order Group 1: HYDROmorphone (DILAUDID) injection 0.2 mgJump to med 0.2 mg, Intravenous, EVERY 2 HOURS PRN, other, moderate pain (pain rating 4-6) IF patient unable to take oral pain medication or pain not controlled with oral analgesics, Starting on Fri03/13/21 at 1948
Hold IV PRN opioid dose for analgesi c side effects. Notify provider to assess for uncontrolled pain or analgesic side effects.
Or HYDROmorphone (DILAUDID) injection 0.4 mgJump to med 0.4 mg, Intravenous, EVERY 2 HOURS PRN, other, severe pain (pain rating 7-10) IF patient unable to take oral pain medication or pain not controlled with oral analgesics, Starting on Fri03/13/21 at 1948& lt;br>Hold IV PRN opioid dose for analge sic side effects. Notify provider to assess for uncontrolled pain or analgesic side effects.
Group 2: naloxone (NARCAN) injection 0.2 mgJump to med 0.2 mg, Intravenous, EVERY 2 MIN PRN, op ioid reversal, Starting on Fri03/13/21 at 1958
Administer intravenous route when available and notify provider when administered. For unintended sedation or respiratory depression if a ll of the below criteria are met: ~ respiratory rate LESS than or EQUAL to 8. ~SaO2 less than 92% and or/end- tidal CO2 is greater than 50.& nbsp;~ the patient is receiving an opioi d, has unintended sedations assessed as RASS (-3), and is currently not on mechanical ventilation. RASS scale moderate (-3) is movement or eye opening to voice but no eye contact.&nbs p; Patient Monitoring Once the patient has demonstrated a response to the naloxone, continue to monitor respiratory rate, depth, oxygen satu ration and end-tidal CO2 (if available) every 15 minutes x 2, then every 30 minutes x 2, then every 1 hour x 1 after each naloxone dose. Consider transfer to ICU if patient respirator y parameters have not improved after 4 n aloxone doses. For ordered IV doses 0.1-2mg give IVP. Give each 0.4mg over 15 seconds in emergency situations. For non-emergent situations further dilute in 9mL of NS to facilitate titration of response.
Or naloxone (NARCAN) injection 0.4 mgJump to med 0.4 mg, Intravenous, EVERY 2 MIN PRN, op ioid reversal, Starting on Fri03/13/21 at 1957
Administer intravenous route when available and notify provider when administered. For unintended sedation or respiratory depression if a ll of the below criteria are met: ~ respiratory rate LESS than or EQUAL to 8. ~ SaO2 less than 92% and or/end- tidal CO2 is greater than 50.& nbsp;~ the patient is receiving an opioi d, has unintended sedation assessed as RASS (-4) or (-5) and patient is currently not on mechanical ventilation. RASS scale (-4) is deep sedati on with no response to voice but movemen t or eye opening to physical stimulation. RASS scale (-5) is unarousable. Patient Monitoring On ce the patient has demonstrated a respon se to the naloxone, continue to monitor respiratory rate, depth, oxygen saturation and end-tidal CO2 (if available) every 15 minutes x 2, then every 30 minutes x 2, then every 1 hour x 1 after each nalo xone dose. Consider transfer to ICU if patient respiratory parameters have not improved after 4 naloxone doses. For ordered IV doses 0 .1-2mg give IVP. Give each 0.4mg over 15 seconds in emergency situations. For non-emergent situations further dilute in 9mL of NS to facilitate titration of response.
Or naloxone (NARCAN) injection 0.2 mgJump to med 0.2 mg, Intramuscular, EVERY 2 MIN PRN, opioid reversal, Starting on Fri03/13/21 at 1958
Administer intramuscular if an intravenous route is not available and notify provider when administered. For unintended sedation or respira tory depression if all of the below criteria are met: ~ respiratory rate LESS than or EQUAL to 8. ~SaO2 less than 92% and or/end-tidal CO2 is greater than 50. ~ the patient i s receiving an opioid, has unintended sedations assessed as RASS (-3), and is currently not on mechanical ventilation. RASS scale moderate (-3) is movement or eye opening to voice but no eye contact. Patient Monitoring Once the patient has demonstrated a response to the naloxone, continue to monitor respiratory rate, depth, oxygen saturation and end-t idal CO2 (if available) every 15 minutes x 2, then every 30 minutes x 2, then every 1 hour x 1 after each naloxone dose. Consider transfer to [facility] if patient respiratory parameters hav e not improved after 4 naloxone doses. For ordered IV doses 0.1-2mg give IVP. Give each 0.4mg over 15 seconds in emergency situations. For non-emergent s ituations further dilute in 9mL of NS to facilitate titration of response.
Or naloxone (NARCAN) injection 0.4 mgJump to med 0.4 mg, Intramuscular, EVERY 2 MIN PRN, opioid reversal, Starting on Fri03/13/21 at 1958
Administer intramuscular if an intravenous route is not available and notify provider when administered. For unintended sedation or respira tory depression if all of the below criteria are met: ~ respiratory rate LESS than or EQUAL to 8. ~ SaO2 less than 92% and or/end-tidal CO2 is greater than 50. ~ the patient i s receiving an opioid, has unintended sedation assessed as RASS (-4) or (-5) and patient is currently not on mechanical ventilation. RASS s silvia (-4) is deep sedation with no respo nse to voice but movement or eye opening to physical stimulation. RASS scale (-5) is unarousable. Patien t Monitoring Once the patient has d emonstrated a response to the naloxone, continue to monitor respiratory rate, depth, oxygen saturation and end-tidal CO2 (if available) every 15 minutes x 2, then every 30 minutes x 2, then every 1 hour x 1 after each naloxone dose. Consider transfer to ICU if patient respiratory parameters have not improved after 4 naloxone doses.&nbs p;For ordered IV doses 0.1-2mg give IVP. Give each 0.4mg over 15 seconds in emergency situations. For non-emergent situations further dilute in 9mL of NS to facilitate titration of response.
Group 3: ondansetron (ZOFRAN-ODT) ODT tab 4 mgJump to med 4 mg, Oral, EVERY 6 HOURS PRN, nausea, v omiting, Starting on Fri03/13/21 at 1948
This is Step 1 of nausea and vomiting management. If nausea not resolved in 15 minutes, go to Step 2 prochlorperazine (COMPAZINE). Do not push through foil backing. Peel back foil and gently remove. Place on tongue immediately. Administration with liquid unnecessary With dry hands, pee l back foil backing and gently remove ta blet. Do not push oral disintegrating tablet through foil backing. Administer immediately on tongue and oral disintegrating tablet dissolves in seconds, then swallow with saliva. Liquid not required.
Or ondansetron (ZOFRAN) injection 4 mgJump to med 4 mg, Intravenous, EVERY 6 HOURS PRN, na usea, vomiting, Administer over 2-5 Minutes, Starting on Fri03/13/21 at 1947
This is Step 1 of nausea and vomiting management. If naus ea not resolved in 15 minutes, go to Pete p 2 prochlorperazine (COMPAZINE). Irritant. For ordered IV doses 0.1-4 mg, give IV Push undiluted over 2-5 minutes.
Group 4: oxyCODONE (ROXICODONE) tablet 5 mgJump to med 5 mg, Oral, EVERY 4 HOURS PRN, other, mo derate pain (pain rating 4-6), Starting on Fri03/13/21 at 1947
Hold oral PRN dose for analgesic side effects. Notify provider to assess for uncontrolled pain or analgesic side effects. Ho ld while on IV LEAK DETECTOR or with regular IV opioid dosing.
Or oxyCODONE (ROXICODONE) tablet 10 mgJump to med 10 mg, Oral, EVERY 4 HOURS PRN, severe p ain, (pain rating 7-10), Starting on Fri03/13/21 at 1947
Hold oral PRN dose for analgesic side effects. Notify provider to assess for uncontrolled pain o r analgesic side effects. Hold whi le on IV LEAK DETECTOR or with regular IV opioid dosing.
Group 5: prochlorperazine (COMPAZINE) injection 5 mgJump to med 5 mg, Intravenous, EVERY 6 HOURS PRN, na usea, vomiting, Administer over 1-2 Minutes, Starting on Fri03/13/21 at 1947
This is Step 2 of nausea and vomiting management. If nausea not re solved in 15-30 minutes, Notify provider . For ordered IV doses 0.1-10 mg, give IV push undiluted, each 5 mg over 1 minute.
Or prochlorperazine (COMPAZINE) tablet 5 mgJump to med 5 mg, Oral, EVERY 6 HOURS PRN, nausea, v omiting, Starting on Fri03/13/21 at 1948
This is Step 2 of nausea and vomiting management. If nausea not resolved in 15-30 minutes, Notify provider.
documented in this encounter Care Teams Asset Protection Specialist Relationship Specialty Start Date End Date Aung Almaguer PCP - General Family Practice 03/02/19 [facility] [address] [place] [address] documented as of this encounter
--- OUTSIDE RECORDS SUMMARY | 2022-05-24 08:29 | XMS_ITS | Encounter Summary ---
:1950 Author Care Team Providers Name Role Phone Aung Almaguer MD Primary Care Provider [phone] Reason for Visit Malignant tumor of prostate Assessment and Plan Assessment Note 71M s/p RALP + PLND on 03/13/21 for pT2N 1 [place] 3+4=7 prostate cancer (-SMS, - SVI, 07/27 LN). 1) Prostate cancer - PSA today 0.04 - discussed ADT vs observation, prefers observation for now - f/u 3 months with PSA - if PSA detectable, consider PSMA based on PSA level - will likely need start ADT due to N+ d isease 2) Lymphoceles - resolved, drains removed 3) Erectile dysfunction - ICI per Dr Collazo 1. Malignant tumor of prostate ? PSA, serum or plasma 2. Lymphocele 3. Secondary erectile dysfunction Discussion Note: None recorded.Patient educational handouts: No information available. Plan of Care Reminders Provider Appointments [facility] 07/04/2022 2:00PM [facility] ? Established 07/04/2022 2:10PM Mason Plascencia MD Lab PSA, Serum or Plasma 03/06/2022 [facility] Referral None recorded. ? ? Procedures None recorded. ? ? Surgeries None recorded. ? ? Imaging None recorded. ? ? Medications Name Start Date ? ? allopurinol 300 mg tablet ? TAKE 1 TABLET BY MOUTH ONCE DAILY amlodipine 5 mg tablet ? TAKE 1 TABLET BY MOUTH ONCE DAILY clobetasol 0.05 % topical ointment ? lisinopril 20 mg tablet ? TAKE 1 TABLET BY MOUTH ONCE DAILY Trimix 30 papaverine/1 phentolamine/10 PGE-1 ? 30 papaverine/1 phentolamine/10 PGE-1 inject 10 units intracavernosal as dire cted PRN for sexual activity. titrate by 5 units until desired response. Medications Administered None recorded. Vitals Height Weight BMI 6 ft 1 in 208 lbs 27.4 kg/m2 Results Lab Results Date Name Specimen Result Interpretation Description Value Range Status Address ? 03/06/2022 PSA, Serum or ? PSA, Total 0.04 ng/ml ? ? [facility]: [address] Allergies Code Code System Name Reaction Severity Onset NKDA ? ? ? Problems Name Status Onset Date Source ? Malignant Tumor of Prostate Active 01/04/2021 ? Lymphocele Active 04/06/2021 ? Secondary Erectile Dysfunction Active 07/11/2021 ? Procedures Date Name Performed by ? 08/07/2018 Colonoscopy Information not avai lable Notes: Never ? Anastomosis of Cystic Duct Information n ot available ? Cholecystectomy Information not avai lable ? Vasectomy Information not avai lable Vaccine List Vaccine Type pneumococcal conjugate PCV 13 03/23/2018 Social History Tobacco Smoking Status Former Smoker (1 pack per day) What is your level of alcohol consumption? Moderate Marital status Preferred Language Cymraes How much tobacco do you chew? none What was the date of your most recent tobacco 03/06/2022 screening? Ethnicity Not / Do you or have you ever used e-cigarettes or Never used elec tronic cigarettes vape? What is your level of caffeine consumption? Moderate When did you quit smoking? 16+yearssincelastcigarette How many years have you smoked tobacco? 20 Family History Relation Problem Onset Age of Age Notes Mother Family history of cancer (No Information) N/A (No Notes) Father Family history of Hypertension (No Information) N/A (No Notes) Functional Status Unknown. Past Encounters 03/06/2022 Malignant Tumor of Prostate; Lymphocele; Secondary Erectile Dysfunction Mason Plascencia MD: [address] [place] [address], Ph. History of Present Illness Note: <p>71M s/p RALP + PLND on 03/13/21 for pT2N1 [place] 3+4=7 prostate cancer (-SMS, -SVI, 1/7 LN).</p><div>
</div><p>Voiding with strong stream. Minimal leakage now. Not wearing pads. Tadalafil not working; using ICI per Dr Collazo.</p><div>
</div><div>04/09/21 CT A/P: interval increase in b/l lymphoceles</div><div>04/19/21CT-guided drain placement to b/l fluid collections</div><div>04/26-04/29: Admission at [facility] with fevers; Pseudomonas on culture of drain fluid; treated with Augmentin and cipro x14 days per ID </div><div>04/27/21 CT A/P: no residual fluid collection on right; minimal residual fluidat left pelvic side wall; right drain was removed</div><div>
</div><p>UF: 07/25</p><div>Date of complete continence: 04/20/21</div><div>EF: 11/22; good with ICI</div><div>Pre-op ED: -09/22</div><div>
</div><div>PSA Results</div><div>05/04/21 <0.04</div><div>07/11/21 <0.04</div><div>10/31/21 <0.04</div><div>03/06/22 0.04</div><div>
</div><div>
</div> Review of Systems ? Comprehensive General Adult ROS Reported By: Patient Constitutional: Constitutional: no fever, no chills Eyes: Eyes: no dry eyes, no vision change, no irritation Endocrine: Endocrine: no fatigue, no in creased thirst Cardiovascular: Cardiovascular: no chest mary lou n, no palpitations Integumentary: Skin: no rashes, no change i n skin color Respiratory: Respiratory: no wheezing, no cough, no shortness of breath Gastrointestinal: Gastrointestinal: no abdomin al pain, no nausea, no vomiting, no constipation, no GERD Musculoskeletal: Musculoskeletal: no neck mary lou n, no back pain Neurologic: Neurologic: no tremor, no di zziness, no numbness, no headaches Genitourinary: Genitourinary: no incontinen ce, no difficulty urinating ENMT: Ears: no ear pain. Mouth/Thr oat: no sore throat Allergic/Immunologic: Allergy/Immunologic: no itch ing, no hives Hematologic/Lymphatic: Hematologic/Lymphatic no swo llen glands, no excessive bleeding Psychiatric: Psych: no hallucinations, (n ormal) sleep disturbances: mismatch of sleep / wake aline edule with lifestyle needs Physical Exam ? Notes: <div>General: No acute distr ess, well developed/well nourished</div><div>HEENT: C onjunctiva clear, extraocular movements intact, normocephalic/atraumatic</di v><div>Resp: Respirations nonlabored, no audible wheeze, symmetric</div><div> Neuro: CN intact</div><div>Psych: normal mood and affect</div><div>
</d iv><div>
</div>
--- OUTSIDE RECORDS SUMMARY | 2022-05-24 08:29 | XMS_ITS | Clinical Summary ---
:1950 Author Organization [facility] Address [address] [place] [id number] Care Team Providers Name Role Phone Aung Almaguer Primary Care Provider Allergies Active Allergy Reactions Severity Noted Date Comments Simvastatin Muscle Pain (Myalgia) 03/12/2021 Medications Medication Sig Dispensed Refills Start Date End Date Status lisinopril Take 20 mg by mouth 0 Active (PRINIVIL/ZESTRIL) 20 daily MG tablet allopurinol Take 300 mg by 0 Act hussain (ZYLOPRIM) 300 MG mouth daily tablet amLODIPine (NORVASC) Take 5 mg by mouth 0 Active 5 MG tablet daily SILDENAFIL CITRATE PO Take 80 mg by mouth 0 Active daily as needed cimetidine (TAGAMET) Take 800 mg by 0 Active 800 MG tablet mouth daily as needed clobetasol (TEMOVATE) Apply topically 2 0 Active 0.05 % external times daily ointment SENNA-docusate sodium Take 1-2 tablets by 30 tablet 0 03/13/20 21 Active (SENNA S) 8.6-50 MG mouth 2 times daily tabletIndications: as needed Prostate cancer (H) (constipation) oxyCODONE Take 1 tablet (5 12 tablet 0 03/15/2021 Ac tive (ROXICODONE) 5 MG mg) by mouth every tabletIndications: 6 hours as needed Prostate cancer (H) for pain Active Problems Problem Noted Date Prostate cancer 03/13/2021 Social History Tobacco Use Types Packs/Day Years Used Date Smoking Tobacco: Former Cigarettes Quit : 2006 Smokeless Tobacco: Never Alcohol Use Standard Drinks/Week Comments Yes 0 (1 standard drink = 0.6 oz pure alcoho l) one case of beer per week Sex Assigned at Date Recorded Not on file Last Filed Vital Signs Vital Sign Reading [...] Mass Index 28.26 03/13/2021 10:24 AM CDT Plan of Treatment Health Maintenance Due Date Last Done Comments ADVANCE CARE PLANNING 1950 ANNUAL REVIEW OF HM ORDERS 1948 CT COLONOGRAPHY 1950 FIT-DNA (Cologuard) 1950 FIT 1950 FLEX SIG 1950 HEPATITIS B IMMUNIZATION (1 1948 of 3 - 3-dose series) COLONOSCOPY 1958 COLORECTAL CANCER SCREENING 1958 HEPATITIS C SCREENING 1966 DTAP/TDAP/TD IMMUNIZATION 1973 (1 - Tdap) LIPID 1983 LUNG CANCER SCREENING 1998 AORTIC ANEURYSM SCREENING 2013 (SYSTEM ASSIGNED) FALL RISK ASSESSMENT 2013 MEDICARE ANNUAL WELLNESS 2013 VISIT COVID-19 Vaccine (3 - 12/07/2020 10/12/2020, 09/15/2020 Booster for Moderna series) PHQ-2 (once per calendar 07/21/2021 year) INFLUENZA VACCINE (#1) 2022 05/16/2020, 07/05/2019, 05/16/2018, Additional history exists Pneumococcal Vaccine: 65+ Completed 02/07/2016, 12/29/2013 Years ZOSTER IMMUNIZATION Completed 09/30/2019, 07/05/2019, 04/14/2013 IPV IMMUNIZATION Aged Out No longer eligi ble based on patient 's age to complete this topic MENINGITIS IMMUNIZATION Aged Out No longe r eligible based on patient 's age to complete this topic Insurance Payer Benefit Plan / Subscriber ID Effective Dates Phone Addre ss Type Group BCBS BCBS MEDICARE [id number] 2018-Isabel [phone] [address] [address] Medicare ADVANTAGE t 0 [place] [address] Advance Directives For more information, please contact: [phone] Latest Code Status on File Code Status Date Activated Date Inactivated Comments Full Code 03/13/2021 7:48 PM 03/15/2021 3:34 PM All basic an d advanced life-sustaining interventions are performed as herminia ropriate Question Answer Comments Code status determined by: Unable to discuss and no AD/POLST on file; continue PREVIOUSLY ORDERED code status Care Teams Veterinary Science Teacher Relationship Specialty Start Date End Date Aung Almaguer PCP - General Family Practice 03/02/19 [facility] [address] [place] [address]
--- OUTSIDE RECORDS SUMMARY | 2022-05-24 08:29 | XMS_ITS ---
:1950 Author Care Team Providers Name Role Phone XU LEVIN MD Primary Care Provider [phone] Allergies Code Code System Name Reaction Severity Status Onset NKDA ? Medications Name Status Start Date Stop Date ? ? allopurinol 300 mg tablet Active ? Not av ailable TAKE 1 TABLET BY MOUTH ONCE DAILY amlodipine 5 mg tablet Active ? Not avail able TAKE 1 TABLET BY MOUTH ONCE DAILY amoxicillin 875 mg-potassium clavulanate 125 mg tablet Completed ? 07/11/2021 ciprofloxacin 500 mg tablet Completed ? 06/21 clobetasol 0.05 % topical ointment Active ? Not available lisinopril 20 mg tablet Active ? Not avai lable TAKE 1 TABLET BY MOUTH ONCE DAILY oxycodone 5 mg tablet Completed ? 07/11/2021 Shingrix (PF) 50 mcg/0.5 mL intramuscular suspension, Completed ? 10/27/2020 kit sildenafil (pulmonary hypertension) 20 mg tablet Completed ? 10/31/2021 tadalafil 5 mg tablet Completed ? 03/06/2022 TAKE 4 TABLETS (20 MG) BY MOUTH ONE DAY PER WEEK 1 HOUR PRIOR TO SEXUAL ACTIVITY Trimix 30 papaverine/1 phentolamine/10 PGE-1 Active ? Not available 30 papaverine/1 phentolamine/10 PGE-1 inject 10 units intracavernosal as dire cted PRN for sexual activity. titrate by 5 units until desired response. Problems Name Status Onset Date Source ? Malignant Tumor of Prostate Active 01/04/2021 ? Lymphocele Active 04/06/2021 ? Secondary Erectile Dysfunction Active 07/11/2021 ? Procedures Date Name Performed by ? 08/07/2018 Colonoscopy Information not avai lable Notes: Never ? Anastomosis of Cystic Duct Information n ot available ? Cholecystectomy Information not avai lable ? Vasectomy Information not avai lable 10/31/2020 NM, Bone Scan, Whole Body [facility] Radiology Department [address] [place] [address] (Work Place) 2021 CT, Cystogram Information not avai lable 04/09/2021 CT, Abdomen + Pelvis, W/ Contrast Inform ation not available Results Lab Results Date Name Specimen Result Interpretation Description Value Range Status Address ? 03/06/2022 PSA, Serum or ? PSA, Total 0.04 ng/ml ? ? [facility]: [address], [place] 03/06/2022 PSA, Serum or ? No observation ? ? ? Plasma recorded. 10/31/2021 PSA, Serum or ? PSA, Total <0.04 ng/ml ? ? Plasma 10/31/2021 PSA, Serum or ? No observation ? ? ? Plasma recorded. 07/11/2021 PSA, Serum or ? PSA, Total <0.04 ng/ml ? ? Plasma 07/11/2021 PSA, Serum or ? No observation ? ? ? Plasma recorded. 05/04/2021 PSA, Serum or ? PSA, Total <0.04 ng/ml ? ? Plasma 05/04/2021 PSA, Serum or ? No observation ? ? ? Plasma recorded. 04/06/2021 Urinalysis, ? No observation ? ? ? Dipstick recorded. 04/05/2020 Urinalysis, ? No observation ? ? ? Dipstick recorded. 03/14/2020 PSA, Serum or ? No observation ? ? ? Plasma recorded. ? Urinalysis, ? pH-Status 5.0 ? ? Dipstick ? ? ? Blood-Status Large ? Leuko-Status Moderate ? ? ? Urinalysis, ? Color-Status Yellow ? ? Dipstick ? ? ? Glucose-Status Negative ? Bilirubin-Statu Negative ? ? s ? ? ? Ketones-Status Negative ? Sp 1.020 ? ? [place]-Status ? ? ? Nitrates-Status negative ? Blood-Status Negative ? Leuko-Status Negative ? Performed by Herve Kuhn ? ? Past Encounters 03/06/2022 Malignant Tumor of Prostate; Lymphocele; Secondary Erectile Dysfunction Mason Plascencia MD: [address], [place] [address], Ph. 10/31/2021 Malignant Tumor of Prostate; Lymphocele; Secondary Erectile Dysfunction Mason Plascencia MD: [address], [place] [address], Ph. 07/11/2021 Malignant Tumor of Prostate; Lymphocele; Secondary Erectile Dysfunction Mason Plascencia MD: [address], [place] [address], Ph. 05/04/2021 Malignant Tumor of Prostate; Lymphocele Mason Plsacencia MD: [address], [place] [address], Ph. 04/13/2021 Malignant Tumor of Prostate Marc Adams MD: [address], [place] [address], Ph. 04/06/2021 Malignant Tumor of Prostate; Lymphocele Mason Plascencia MD: [address], [place] [address], Ph. 03/27/2021 Malignant Tumor of Prostate Sandra Cobian PA-C: [address], [place] [address], Ph. 01/04/2021 Malignant Tumor of Prostate Mason Plascencia MD: [address], [place] [address], Ph. Social History Tobacco Smoking Status Former Smoker (1 pack per day) Vaccine List Vaccine Type pneumococcal conjugate PCV 13 03/23/2018 Plan of Care Patient Instructions RTC by this afternoon if patient is exp eriencing issues with urinary retention after having bustos removed. Reminders Provider Appointments None recorded. ? ? Lab None recorded. ? ? Referral None recorded. ? ? Procedures None recorded. ? ? Surgeries None recorded. ? ? Imaging None recorded. ? ? Vitals 03/06/2022 10:20AM ESTABLISHED 10 Height Weight BMI 6 ft 1 in 208 lbs 27.4 kg/m2 10/31/2021 09:45AM ESTABLISHED 10 Height Weight BMI 6 ft 1 in 196 lbs 25.9 kg/m2 07/11/2021 03:00PM ESTABLISHED 10 Height Weight BMI 6 ft 1 in 206 lbs 27.2 kg/m2 05/04/2021 11:10AM ESTABLISHED 20 Height Weight BMI 6 ft 1 in 211 lbs 27.8 kg/m2 04/06/2021 11:10AM CA TALK Height Weight BMI 6 ft 1 in 211.5 lbs 27.9 kg/m2 01/04/2021 01:00PM ESTABLISHED 20 Height Weight BMI 6 ft 1 in 215 lbs 28.4 kg/m2 11/15/2020 04:00PM CA TALK Height Weight BMI 6 ft 1 in 215 lbs 28.4 kg/m2 10/27/2020 01:00PM [facility] 30 Height Weight BMI 6 ft 1 in 217 lbs 28.6 kg/m2 04/05/2020 11:00AM NEW PATIENT 20 Height Weight BMI 6 ft 1 in 217 lbs 28.6 kg/m2
--- OUTSIDE RECORDS SUMMARY | 2022-05-24 08:30 | XMS_ITS | Encounter Summary ---
:1950 Author Organization [facility] Address [address] [place] [address]. [place] [address] Care Team Providers Name Role Phone Aung Almaguer Primary Care Provider Reason for Visit Auth/Cert Specialty Diagnoses / Procedures Referred By Contact Refer red To Contact Surgery Diagnoses removal of biliary stent Rh Periop Services Procedures ESOPHAGOGASTRODUODENOSCOPY (EGD) [address] [place], [place] [address] Phone: Fax: Referral ID Status Reason Start Date Expiration Date Visits Requ ested Visits Authorized [id number] 1 1 Encounter Details Date Type Department Care Team Description 03/25/2019 Surgery [facility] Gary Rivera Esophag ogastroduodenoscopy with [place] PeriOp MD Chad stent removal Services [place] [address] GASTROENTEROLOGY [place] [id number] [place], [place] [address] [phone] [place], [place] [id number] Surgery Details Date/Time Status Location OR Service Patient Case Case Traum a Class Class Type Case? 03/25/19 1:55 Posted [facility] OR OR CATH Gastroenterology Same Day PM 11 Surgery Panel 1 Procedure LRB Anes Op Region Wound Class Commen ts Esophagogastroduodenoscopy with N/A MAC Mouth II-C lean Contaminated stent removal Surgeon Surgeon Role Service Panel Gary Rivera MD Primary Gastroenterology 1 documented in this encounter Social History Tobacco Use Types Packs/Day Years Used Date Smoking Tobacco: Never Smokeless Tobacco: Never Sex Assigned at Date Recorded Not on file documented as of this encounter Last Filed Vital Signs Vital Sign Reading Time Taken Comments Blood Pressure 130/84 03/25/2019 2:31 PM CDT Pulse 95 03/25/2019 2:31 PM CDT Temperature 37.7 ??C (99.9 ??F) 03/25/2019 2:14 PM CDT Respiratory Rate 16 03/25/2019 2:31 PM CDT Oxygen Saturation 95% 03/25/2019 2:31 PM CDT Inhaled Oxygen Concentration - - Weight 95.3 kg (210 lb 1.6 oz) 03/25/2019 12:59 PM CDT Height 185.4 cm (6' 1) 03/25/2019 12:59 PM CDT Body Mass Index 27.72 03/25/2019 12:59 PM CDT documented in this encounter Discharge Instructions Discharge InstructionsParris Phillips RN - 03/25/2019 2:50 PM CDT GENERAL ANESTHESIA OR SEDATION ADULT DISCHARGE INSTRUCTIONS SPECIAL PRECAUTIONS FOR 24 HOURS AFTER SURGERY IT IS NOT UNUSUAL TO FEEL LIGHT-HEADED OR FAINT, UP TO 24 HOURS AFTER SURGERY OR WHILE TAKING PAIN MEDICATION. IF YOU HAVE THESE SYMPTOMS; SIT FOR A FEW MINUTES BEFORE STANDING AND HAVE SOMEONE ASSIST YOU WHEN YOU GET UP TO WALK OR USE THE BATHROOM. YOU SHOULD REST AND RELAX FOR THE NEXT 24 HOURS AND YOU MUST MAKE ARRANGEMENTS TO HAVE SOMEONE STAY WITH YOU FOR AT LEAST 24 HOURS AFTER YOUR DISCHARGE. AVOID HAZARDOUS AND STRENUOUS ACTIVITIES. DO NOTMAKE IMPORTANT DECISIONS FOR [address] ANY VEHICLE OR OPERATE MECHANICAL EQUIPMENT FOR 24 HOURS FOLLOWING THE END OF YOUR SURGERY. EVEN THOUGH YOU MAY FEEL NORMAL, YOUR REACTIONS MAY BE AFFECTED BY THE MEDICATION YOU HAVE RECEIVED. DO NOT DRINK ALCOHOLIC BEVERAGES FOR 24 HOURS FOLLOWING YOUR SURGERY. DRINK CLEAR LIQUIDS (APPLE JUICE, NEVIN JAMISON, 7-UP, BROTH, ETC.). PROGRESS TO YOUR REGULAR DIET YOU FEEL ABLE. YOU MAY HAVE A DRY MOUTH, A SORE THROAT, MUSCLES ACHES OR TROUBLE SLEEPING. THESE SHOULD GO AWAY AFTER 24 HOURS. CALL YOUR DOCTOR FOR ANY OF THE FOLLOWING: SIGNS OF INFECTION (FEVER, GROWING TENDERNESS AT THE SURGERY SITE, A LARGE AMOUNT OF DRAINAGE OR BLEEDING, SEVERE PAIN, FOUL-SMELLING DRAINAGE, REDNESS OR SWELLING. IT HAS BEEN OVER 8 TO 10 HOURS SINCE SURGERY AND YOU ARE STILL NOT ABLE TO URINATE (PASS WATER). documented in this encounter Medications at Time of Discharge Medication Sig Dispensed Refills Start Date End Date allopurinol (ZYLOPRIM) Take 300 mg by mouth 0 300 MG tablet daily amLODIPine (NORVASC) 5 MG Take 5 mg by mouth 0 tablet daily lisinopril Take 20 mg by mouth 0 (PRINIVIL/ZESTRIL) 20 MG daily tablet SILDENAFIL CITRATE PO Take 80 mg by mouth 0 daily as needed tamsulosin (FLOMAX) 0.4 Take 0.4 mg by mouth 0 03/13/2021 MG capsule daily documented as of this encounter Plan of Treatment Not on filedocumented as of this encounter Procedures Procedure Name Priority Date/Time Associated Comments Diagnosis ESOPHAGOGASTRODUODENOSCOPY (EGD) 03/25/2019 1:38 remov al of PM CDT biliary stent UPPER GI ENDOSCOPY Routine 03/25/2019 1:14 Result s for PM CDT this procedure are in the results section. LAB RESULT - HIM SCAN 03/02/2019 12:00 AM CDT EKG CARDIAC - HIM SCAN 02/22/2019 12:00 AM CDT documented in this encounter Results UPPER GI ENDOSCOPY (03/25/2019 1:14 PM CDT) Component Value Ref Test Analysis Performed At [facility] Range Method Time Signature Upper GI [facility] RADIO LOGY Endoscopy RESULTS Patient Name: Kyree Webster ? Procedure Date: 03/25/2019 1:14 PM ? Accou nt Number: [id number] Date of : 1950 ?Admit Type: Out patient Age: 69 ? Gender: Male Attending MD: Gary Rivera MD ??Total Sedation Time: Instrument Name: 154 ? Procedure: ?Upper GI endoscopy Indications: ?Stent removal Providers: ?Gary Rivera MD (Doc [facility]) Referring MD: ? Medicines: ?Monitored Anesthesia Care Complications: ?No immediate complications. Procedure: ?Pre-Anesthesia Assessment: ?- Prior to the procedure, a History and Physical ?was performed, and patient medications and ?allergies were reviewed. The patient is competent. ?The risks and benefits of the procedure and the ?sedation options and risks were discussed with the ?patient. All questions were answered and informed ?consent was obtained. Patient identification and ?proposed procedure were verified by the physician ?in the pre-procedure area. Mental Status ?E xamination: alert and oriented. Airway ?Examination: normal oropharyngeal airway and neck ?mobility. Respiratory Examination: clear to ?auscultation. CV Examination: normal. ASA Grade ?Assessment: II - A patient with mild systemic ?disease. After reviewing the risks and benefits, ?the patient was deemed in satisfactory condition to ?undergo the procedure. The anesthesia plan was to ?use moderate sedation / analgesia (conscious ?sedation). Immediately prior to administration of ?medications, the patient was re-assessed for ?adequacy to receive sedatives. The heart rate, ?respiratory rate, oxygen saturations, blood ?pressure, adequacy of pulmonary ventilation, and ?response to care were monitored throughout the ?procedure. The physical status of the patient was ?re-assessed after the procedure. ?After obtaining informed consent, the endoscope was ?passed under direct vision. Throughout the ?procedure, the patient's blood pressure, pulse, and ?oxygen saturations were monitored continuously. The ?Olympus Duodenoscope Model #[id number]-[id number], SN#[id number] ?was introduced through the mouth, and advanced to ?the third part of duodenum. The upper GI endoscopy ?was accomplished without difficulty. The patient ?tolerated the procedu re well. ? Findings: ? The entire examined stomach was normal. ? The examined duodenum was normal. ? A previously placed p lastic stent was seen in the ampulla. Stent removal ? was accomplished with a snare. ? Impression: ? - Normal stomach. ?- Normal examined jarrett baeza. ?- Plastic stent in the duodenum. Removed. Recommendation: ? - Observe patient's clinical course. ? Procedure Code(s): ? --- Professional --- ? 34415, Esophagogastroduodenoscopy , flexible, transoral; with removal of ? foreign body(s) CPT copyright 2017 [employer]. All rights reserved. The codes documented in this report are prelimin tawanna and upon nanosystems engineer review may be revised to meet current compliance requirements. Gary Rivera M.D. Gary Rivera MD 03/25/2019 2:33:46 PM I was physically present for the entire viewing portion of t he exam. Gary Rivera MD Number of Addenda: 0 Note Initiated On: 03/25/2019 1:14 PM MRN: ?[id number] Procedure Date: ? 03/25/2019 1:14:13 PM Total Procedure Duration: 0 hours 2 minutes 14 seconds Estimated Blood Loss: ? Scope In: 2:00:13 PM Scope Out: 2:02:27 PM Specimen (Source) Anatomical Collection Method Collection Time Re ceived Time Location / / Volume Laterality 03/25/2019 1:14 PM CDT Gary Rivera MD PROCEDURES Performing Organization Address City/State/ZIP Code Phon e Number RADIOLOGY RESULTS LAB RESULT - HIM SCAN (03/02/2019 12:00 AM CDT) Specimen (Source) Anatomical Location Collection Method / Collectio n Time Received Time / Laterality Volume 03/02/2019 Narrative This result has an attachment that is no t available. Provider Outside NON-BEAKER LAB TESTING EKG CARDIAC - HIM SCAN (02/22/2019 12:00 AM CDT) Specimen (Source) Anatomical Location Collection Method / Collectio n Time Received Time / Laterality Volume 02/22/2019 Narrative This result has an attachment that is no t available. Provider Outside ECG ORDERABLES documented in this encounter Visit Diagnoses Not on filedocumented in this encounter Administered Medications Inactive Administered Medications - up to 3 most recent administrations Medication Order MAR Action Action Date Dose Rate Site fentaNYL (PF) (SUBLIMAZE) injection 25-5 0 mcg 25-50 mcg, Intravenous, EVERY 15 MIN PRN, other, acute pain while in Phase II, Starting on Suzanne 03/25/19 at 1419, Indicati ons: Sedated State, MAX cumulative dose = 250 mcg. Use fentaNYL (SUBLIMAZE) initia lly, as a short acting agent for acute pain control. If insufficient, or a longer acting agent is needed, begin morphine or HYDROmorphone (DILAUDID) if ordered. For ordered IV doses 1-100 mcg give IV Push undiluted over a minimum of 3-5 minutes., Phase ll flumazenil (ROMAZICON) injection 0.2 mg 0.2 mg, Intravenous, EVERY 1 MIN PRN, benzodiazepine r eversal, over sedation, Administer over 1 Minutes, Starting on [facility] 03/25/19 at 1444, For 12 hours, Give over 15 seconds. If inadequate response after 45 seconds, may repeat up to a MAX total dose of 1 mg. Continue monitoring until discharge criteria are met for a minimum of 2 hours Irritant. For ordered IV doses 0 .1-1 mg, give IV Push undiluted. Administer each 0.2mg over 15 seconds., Post-procedure hydrALAZINE (APRESOLINE) injection 2.5-5 mg 2.5-5 mg, Intravenous, EVERY 10 MIN PRN, high blood pressure, for Systolic Blood Pressure greater than 160 mmHg and Heart Rate greater than 60 bpm.?, Administer over 1 Minutes, Starting on Suzanne 03/25/19 a t 1419, Max cumulative dose = 20 mg. For PACU USE ONLY For ordered IV doses 1-40 mg, give IV Push undiluted over 1 minute., PACU HYDROmorphone (PF) (DILAUDID) injection 0.3-0.5 mg 0.3-0.5 mg, Intravenous, EVERY 10 MIN PRN, other, acut e pain. May administer if Respiratory Rate is greater than 10, Sta rting on Suzanne 03/25/19 at 1419, Max cumulative dose = 2 mg If fentaNYL (SUBLIMAZE) is a lso ordered, use HYDROmorphone (DILAUDID) if pain control insufficient with fentaN YL (SUMBLIMAZE) or a longer acting agent is needed. For ordered IV doses 0.1-4 mg gi ve IV Push undiluted. Administer each 2mg over 2-5 minutes., PACU/Phase II labetalol (NORMODYNE/TRANDATE) injection 10 mg 10 mg, Intravenous, ONCE PRN, high blood pressure, for Systolic Blood Pressure greater than 160 mmHg and Heart Rate gre ater than 60 bpm, Max cumulative dose = 10 mg, Starting on Suzanne 03/25/19 at 1419, For 1 dose, For PA CU USE ONLY. For ordered doses up to 80 mg, give IV Push undilute d. Give each 20 mg over 2 minutes., PACU lactated ringers infusion at 100 mL/hr, Intravenous, CONTINUOUS, Continue until IV catheter is weaned, PACU/Phase II, Starting on Suzanne 03/25/19 at 1430, Until [facility] 03/25/19 at 1724 May continue current IV fluid if patient has IV fluids infusing until discharge. CONTINUOUS PRN, Starting on Suzanne 03/25/19 at 1444, Until [facility] 03/25/19 at 1724, Post-procedure meperidine (DEMEROL) injection 12.5 mg 12.5 mg, Intravenous, EVERY 15 MIN PRN, post anesthesia shivering, Starting on Suzanne 03/25/19 at 1419, For 2 doses, Give IV Pus h undiluted. 10-40 mg over 2-3 minutes, up to 125 mg over 3-15 minutes, PACU/Phase II naloxone (NARCAN) injection 0.1-0.4 mg 0.1-0.4 mg, Intravenous, EVERY 2 MIN PRN , opioid reversal, Starting on Suzanne 03/25/19 at 1419, For 24 hours, For apnea or imminent respirato ry arrest: give 0.4 mg IV undiluted Q 2 minutes PRN until desired degree of reversal is obtained, stop opioid and notify provider. Continue monitoring until dischar ge are criteria met for a minimum of 2 hours. For severe sedation, decrease in respiratory depth, quality or Respiratory Rate greater than 8: give 0. 1 mg IV Q 2 minutes x 3 doses, stop opioid and notify provider. Try to minimize reversal of analg esia especially in end-of-life patients. Continue monitorin g until discharge criteria are met for a minimum of 2 hours. For ordered IV doses 0.1-2mg give IVP. Give each 0.4mg over 15 seconds in emergency situations. For non -emergent situations further dilute in 9mL of NS to facilitate titration of response., PACU/Phase II naloxone (NARCAN) injection 0.1-0.4 mg 0.1-0.4 mg, Intravenous, EVERY 2 MIN PRN , opioid reversal, Starting on Suzanne 03/25/19 at 1444, For 24 hours, For apnea or imminent respirato ry arrest: give 0.4 mg IV undiluted Q 2 minutes PRN until desired degree of reversal is obtained, stop opioid and notify provider. Continue monitoring until dischar ge criteria are met for a minimum of 2 hours. For severe sedation, decrease in respiratory depth, quality or Respiratory Rate less than 8: give 0.1 m g IV Q 2 minutes x 3 doses, stop opioid and notify provider. Try to minimize reversa l of analgesia especially in end-of-life patients. Continue monitoring until disc harge criteria are met for a minimum of 2 hours For ordered IV doses 0.1-2mg give IVP. Give each 0.4mg over 15 seconds in emergency situations. For non-emergent s ituations further dilute in 9mL of NS to facilitate titration of response., Post-procedure ondansetron (ZOFRAN) injection 4 mg 4 mg, Intravenous, EVERY 30 MIN PRN, ranjit sea, vomiting, Administer over 2-5 Minutes, Starting on Suzanne 03/25/19 at 1419, For 2 do ses, MAX total dose = 8 mg, including OR dosing. This is step 1 of nausea and vomiting manageme nt. If not resolved in 15 minutes, then go to step 2 [prochlorpera zine (COMPAZINE) if ordered]. Irritant. For ordered IV doses 0.1-4 mg, give IV Push undiluted over 2-5 minutes., PACU/Phase II ondansetron (ZOFRAN) injection 4 mg 4 mg, Intravenous, EVERY 6 HOURS PRN, nausea, vomiting , Administer over 2-5 Minutes, Starting on Suzanne 03/25/19 at 1444, This is Step 1 of nausea and vomiting management. If nausea not resolved in 15 minutes, go t o Step 2 prochlorperazine (COMPAZINE). Irritant. For ordered IV do ses 0.1-4 mg, give IV Push undiluted over 2-5 minutes., Post-procedure ondansetron (ZOFRAN-ODT) ODT tab 4 mg 4 mg, Oral, EVERY 30 MIN PRN, nausea, vo miting, Starting on Suzanne 03/25/19 at 1419, For 2 doses, MAX total dose = 8 mg, includin g OR dosing. This is step 1 of nausea and vomiting management. If not resolved in 15 minutes, th en go to step 2 [prochlorperazine (COMPAZINE) if ordered ]. With dry hands, peel back foil backing and gently remove tablet. Do not push oral disintegrat ing tablet through foil backing. Administer immediately on tongu e and oral disintegrating tablet dissolves in seconds, then swallow with saliva. Liquid not requi red., PACU/Phase II ondansetron (ZOFRAN-ODT) ODT tab 4 mg 4 mg, Oral, EVERY 6 HOURS PRN, nausea, v omiting, Starting on Suzanne 03/25/19 at 1444, This is Step 1 of nausea and vomiting management. If n ausea not resolved in 15 minutes, go to Step 2 prochlorperazine (COMPAZINE). Do not push through foil backing. Peel back foil and gently remove. Place on to ngue immediately. Administration with liquid unnecessary W ith dry hands, peel back foil backing and gently remove tablet. Do not push oral d isintegrating tablet through foil backing. Administer immediately on tongue and oral disintegrati ng tablet dissolves in seconds, then swallow with saliva. Liquid not required ., Post-procedure ORAL Pain Medications - may administer a s ordered by surgeon for take home use CONTINUOUS PRN, Starting on Suzanne 03/25/19 at 1419, Until [facility] 03/25/19 at 1724, May administer oral pain medications as ordered by surgeon for take home use. Discontinue IV pain medication prior to administration of oral pain medication., PACU/Phase II sodium chloride (PF) 0.9% PF flush 3 mL 3 mL, Intravenous, EVERY 1 MIN PRN, line flush, after medication administration. For peripheral IV flush post IV meds, Starting on Suzanne 03/25/19 at 1444, Post-procedure documented in this encounter Active and Recently Administered Medications Times are shown in CDT. Continuous Medication Order 03/23/2019 03/24/2019 03/25/2019 lactated ringers infusion 1430 ( Canceled Entry - Provider: Orders Generic Provider - Comment: Automatically canceled at discontinue of medication order) at 100 mL/hr, Intravenous, CONTINUOUS, C ontinue until IV catheter is weaned, PACU/Phase II, Starting Suzanne 03/25/19 at 1430, Until [facility] 03/25/19 at 1724 lactated ringers infusion (CANCELED) 1330 (Canceled Entry - Provider: Orders Generic Provider - Comment: Automatically canceled at discontinue of medication order)1348 (New Bag - Provider: Mihir Hernandez APRN SKEIN SPOOLER) at 25 mL/hr, Intravenous, CONTINUOUS, IF patient NOT on dialysis., Pre- procedure, Starting Suzanne 03/25/19 at 1330, Until [facility] 03/25/19 at 1412 1414 (Anesthesia Volume Adjustment - Provider: Mihir Hernandez APRN SKEIN SPOOLER) PRN Medication Order 03/23/2019 03/24/2019 03/25/2019 fentaNYL (PF) (SUBLIMAZE) injection 25-50 mcg 25-50 mcg, Intravenous, EVERY 15 MIN PRN , Starting Suzanne 03/25/19 at 1419, other, acute pain while in Phase II, MAX cumulative dose = 250 mcg. Use fentaNYL (SUBLIMAZE) initially, as a short acting agent for acute pain control. If insufficient, or a longer acting agent is needed, begin morphine or HYDROmorphone (DILAUDID) if ordered. For ordered IV doses 1-100 mcg give IV Push undiluted over a minimum of 3-5 minutes., Phase ll flumazenil (ROMAZICON) injection 0.2 mg 0.2 mg, Intravenous, EVERY 1 MIN PRN, be nzodiazepine reversal, over sedation, Administer over 1 Minutes, Starting Suzanne 03/25/19 at 1444, For 12 hours, Give over 15 seconds. If inadequate response after 45 seconds, may repeat up to a MAX total do se of 1 mg. Continue monitoring until discharge criteria are met for a minimum of 2 hours Irritant. For ordered IV doses 0.1-1 mg, give IV Push undiluted. Administer each 0.2mg over 15 seconds., Post-procedure hydrALAZINE (APRESOLINE) injection 2.5-5 mg 2.5-5 mg, Intravenous, EVERY 10 MIN PRN, high blood pressure, for Systolic Blood Pressure greater than 160 mmHg and Heart Rate greater than 60 bpm.?, Administer over 1 Minutes, Starting Suzanne 03/25/19 at 1419, Max cumulative dose = 20 mg. For PACU USE ONLY For ordered IV doses 1-40 mg, give IV Push undiluted over 1 minute., PACU HYDROmorphone (PF) (DILAUDID) injection 0.3-0.5 mg 0.3-0.5 mg, Intravenous, EVERY 10 MIN MN N, Starting Suzanne 03/25/19 at 1419, Until [facility]anne 03/25/19 at 1724, other, acute pain. May administer if Respiratory Rate is greater than 10, PACU/Phase II, Max cumulative dose = 2 mg If fentaNYL (SUBLIMAZE) is a lso ordered, use HYDROmorphone (DILAUDID) if pain control insufficient with fentaNYL (SUMBLIMAZE) or a longer acting agent is needed. For ordered IV doses 0.1-4 m g give IV Push undiluted. Administer each 2mg over 2-5 minutes. labetalol (NORMODYNE/TRANDATE) injection 10 mg 10 mg, Intravenous, ONCE PRN, high blood pressure, for Systolic Blood Pressure greater than 160 mmHg and Heart Rate greater than 60 bpm, Max cumulative dose = 10 mg, Starting Suzanne 03/25/19 at 1419, For 1 d ose, For PACU USE ONLY. For ordered dose s up to 80 mg, give IV Push undiluted. Give each 20 mg over 2 minutes., PACU May continue current IV fluid if patient has IV fluids infusing until discharge. CONTINUOUS PRN, Starting Suzanne 03/25/19 at 1 444, Until Suzanne 03/25/19 at 1724, Post-procedure meperidine (DEMEROL) injection 12.5 mg 12.5 mg, Intravenous, EVERY 15 MIN PRN, 2 doses, Starting Suzanne 03/25/19 at 1419, Until Suzanne 03/25/19 at 1724, post anesthesia shivering, PACU/Phase II, Give IV Push undiluted. 10-40 mg over 2-3 minutes, up to 125 mg over 3-15 minutes naloxone (NARCAN) injection 0.1-0.4 mg 0.1-0.4 mg, Intravenous, EVERY 2 MIN PRN , opioid reversal, Starting Suzanne 03/25/19 at 1419, For 24 hours, For apnea or imminent respiratory arrest: give 0.4 mg IV undiluted Q 2 minutes PRN until desired deg ree of reversal is obtained, stop opioid and notify provider. Continue monitoring until discharge are criteria met for a minimum of 2 hours. For severe sedation, decrease in respiratory depth, quality o r Respiratory Rate greater than 8: give 0.1 mg IV Q 2 minutes x 3 doses, stop opioid and notify provider. Try to minimize reversal of analgesia especially in end-of-life patients. Continue monitoring un til discharge criteria are met for a min imum of 2 hours. For ordered IV doses 0.1-2mg give IVP. Give each 0.4mg over 15 seconds in emergency situations. For non-emergent situations further dilute in 9mL of NS to facilitate titration of response., PACU/Phase II naloxone (NARCAN) injection 0.1-0.4 mg 0.1-0.4 mg, Intravenous, EVERY 2 MIN PRN , opioid reversal, Starting Suzanne 03/25/19 at 1444, For 24 hours, For apnea or imminent respiratory arrest: give 0.4 mg IV undiluted Q 2 minutes PRN until desired deg ree of reversal is obtained, stop opioid and notify provider. Continue monitoring until discharge criteria are met for a minimum of 2 hours. For severe sedation, decrease in respiratory depth, quality o r Respiratory Rate less than 8: give 0.1 mg IV Q 2 minutes x 3 doses, stop opioid and notify provider. Try to minimize reversal of analgesia especially in end-of-life patients. Continue monitoring until discharge criteria are met for a minimu m of 2 hours For ordered IV doses 0.1- 2mg give IVP. Give each 0.4mg over 15 seconds in emergency situations. For non- emergent situations further dilute in 9mL of NS to facilitate titration of response., Post-procedure ondansetron (ZOFRAN) injection 4 mg(Linked Group 1) 4 mg, Intravenous, EVERY 30 MIN PRN, ranjit sea, vomiting, Administer over 2-5 Minutes, Starting Suzanne 03/25/19 at 1419, For 2 doses, MAX total dose = 8 mg, including OR dosing. This is step 1 of nausea and vom iting management. If not resolved in 15 minutes, then go to step 2 [prochlorperazine (COMPAZINE) if ordered]. Irritant. For ordered IV doses 0.1-4 mg, give IV Push undiluted over 2-5 minutes., PACU/Phase II ondansetron (ZOFRAN) injection 4 mg(Linked Group 2) 4 mg, Intravenous, EVERY 6 HOURS PRN, na usea, vomiting, Administer over 2-5 Minutes, Starting Suzanne 03/25/19 at 1444, This is Step 1 of nausea and vomiting management. If nausea not resolved in 15 minutes, go to Step 2 prochlorperazine (COMPAZINE ). Irritant. For ordered IV doses 0.1-4 mg, give IV Push undiluted over 2-5 minutes., Post-procedure ondansetron (ZOFRAN-ODT) ODT tab 4 mg(Linked Group 1) 4 mg, Oral, EVERY 30 MIN PRN, nausea, vo miting, Starting Suzanne 03/25/19 at 1419, For 2 doses, MAX total dose = 8 mg, including OR dosing. This is step 1 of nausea and vomiting management. If not resolved in 15 minutes, then go to step 2 [prochlor perazine (COMPAZINE) if ordered]. With dry hands, peel back foil backing and gently remove tablet. Do not push oral disintegrating tablet through foil backing. Ad receivable executive immediately on tongue and oral disintegrating tablet dissolves in seconds, then swallow with saliva. Liquid not required., PACU/Phase II ondansetron (ZOFRAN-ODT) ODT tab 4 mg(Linked Group 2) 4 mg, Oral, EVERY 6 HOURS PRN, nausea, v omiting, Starting Suzanne 03/25/19 at 1444, This is Step 1 of nausea and vomiting management. If nausea not resolved in 15 minutes, go to Step 2 prochlorperazine (NIRMALA ZINE). Do not push through foil backing. Peel back foil and gently remove. Place on tongue immediately. Administration with liquid unnecessary With dry hands, peel back foil backing and gently remove ta blet. Do not push oral disintegrating ta blet through foil backing. Administer immediately on tongue and oral disintegrating tablet dissolves in seconds, then swallow with saliva. Liquid not required., Post-procedure ORAL Pain Medications - may administer as ordered by surgeon for take home use CONTINUOUS PRN, Starting Suzanne 03/25/19 at 1 419, Until Suzanne 03/25/19 at 1724, May administer oral pain medications as ordered by surgeon for take home use. Discontinue IV pain medication prior to administration of oral pain medication., PACU/Phase II sodium chloride (PF) 0.9% PF flush 3 mL 3 mL, Intravenous, EVERY 1 MIN PRN, line flush, after medication administration. For peripheral IV flush post IV meds, Starting Suzanne 03/25/19 at 1444, Post-procedure Linked Groups Order Group 1: ondansetron (ZOFRAN-ODT) ODT tab 4 mgJump to med 4 mg, Oral, EVERY 30 MIN PRN, nausea, vo miting, Starting Suzanne 03/25/19 at 1419, For 2 doses
MAX total dose = 8 mg, including OR dosing. This is step 1 of nausea and vomiting management. & amp;nbsp;If not resolved in 15 minutes, then go to step 2 [prochlorperazine (COMPAZINE) if ordered]. With dry hands, peel back foil backing and gently remove tablet. Do not push oral disintegra ting tablet through foil backing. Admini ster immediately on tongue and oral disintegrating tablet dissolves in seconds, then swallow with saliva. Liquid not required.
PACU/Phase II Or ondansetron (ZOFRAN) injection 4 mgJump to med 4 mg, Intravenous, EVERY 30 MIN PRN, ranjit sea, vomiting, Administer over 2-5 Minutes, Starting Suzanne 03/25/19 at 1419, For 2 doses
MAX total dose = 8 mg, including OR dosing. This is step 1 of nausea and vomiting management. If not resolved in 15 minutes, then go to step 2 [prochlorperazine (COMPAZINE) if ordered]. Irritant. For ordered IV doses 0.1-4 mg, give IV Push undiluted over 2-5 minutes.
PACU/Phase II Group 2: ondansetron (ZOFRAN-ODT) ODT tab 4 mgJump to med 4 mg, Oral, EVERY 6 HOURS PRN, nausea, v omiting, Starting Suzanne 03/25/19 at 1444
This is Step 1 of nausea and vomiting management. If nausea not resolved in 15 minutes, go to Pete p 2 prochlorperazine (COMPAZINE). Do not push through foil backing. Peel back foil and gently remove. Place on tongue immediately. Administration with liquid unnecessary With dry hands, peel ba ck foil backing and gently remove tablet . Do not push oral disintegrating tablet through foil backing. Administer immediately on tongue and oral disintegrating tablet dissolves in seconds, then swallow with saliva. Liquid not required.
Pos t-procedure Or ondansetron (ZOFRAN) injection 4 mgJump to med 4 mg, Intravenous, EVERY 6 HOURS PRN, na usea, vomiting, Administer over 2-5 Minutes, Starting Suzanne 03/25/19 at 1444
This is Step 1 of nausea and vomiting management. If nausea n ot resolved in 15 minutes, go to Step 2 prochlorperazine (COMPAZINE). Irritant. For ordered IV doses 0.1-4 mg, give IV Push undiluted over 2-5 minutes.
Post-procedure documented in this encounter Care Teams Contact Assembler Relationship Specialty Start Date End Date Aung Almaguer PCP - General Family Practice 03/02/19 [place] [address] documented as of this encounter
--- OUTSIDE RECORDS SUMMARY | 2022-05-24 08:30 | XMS_ITS | Encounter Summary ---
:1950 Author Organization [facility] Address [address] [place] [id number] Care Team Providers Name Role Phone Aung Almaguer Primary Care Provider Reason for Visit Auth/Cert Specialty Diagnoses / Procedures Referred By Contact Refer red To Contact Surgery Diagnoses Prostate cancer (H) Prostate cancer (H) [C61] Sh Periop Services Procedures ZZC LAPAROSCOPY, SURGICAL PROSTATECTOMY, RETROPUBIC RADICAL, W/NERVE SPARING ROBOT-ASSISTED LAPAROSCOPIC PROSTATECTOMY AND PELVIC LYMPH NODE DISSECTION [address], [address] [place] [address] Phone: Referral ID Status Reason Start Date Expiration Date Visits Requ ested Visits Authorized [id number] 1 1 Encounter Details Date Type Department Care Team Description 03/13/2021 Anesthesia Event [facility] Taylor Loya [facility] [address] [id number] Kelin UreñaOP Joann Taylor APRN MEDICAL OFFICE ASST CERTIFIED ANESTH[facility]IA CARE [address] [facility] [place] [id number] Services [address], [address] [place] [address] Anesthesia Record Procedure Summary Procedure Name Responsible Anesthesia Start Anesthesia Stop Anesthesiologist Time Time ROBOT-ASSISTED Taylor Loya 03/13/21 1106 1 1845 LAPAROSCOPIC PROSTATECTOMY AND PELVIC LYMPH NODE DISSECTION (Bilateral: Pelvis) Events Date Time Event Comment 03/13/2021 0950 MEDICAL OFFICE ASST Ready for Procedure 1035 1106 An Start 1106 An Start Data 1108 AN REASSESS I attest that I have identified and re-evaluated the patient immediately before the induction of anesthesia and I am satisfied that t he anesthetic plan is suitable for the patient's condition and procedure. The f irst vital signs recorded are pre- inducti on. Joann Taylor APRN MEDICAL OFFICE ASST 1113 An Induction 1116 An Intubation 1138 MD Present 1138 MD Present 1140 Antibiotic Complete 1147 AN INCISION 1224 MD Present 1335 MD Present 1432 MD Present 1433 MD Present 1514 MD Present 1620 MD Present 1626 MD Present 1830 MD Present 1835 AN Extubation All extubation c gabeeria met prior to removal. 183 an stop data 1845 An Stop Electronically s igned by Margie Nieves APRN MEDICAL OFFICE ASST on Feb 6:45 PM Name Total dexamethasone 4mg/mL 4 mg fentaNYL (SUBLIMAZE) injection 300 mcg glycopyrrolate 0.2mg/mL 1 mg lidocaine 2% 100 mg neostigmine 1mg/mL 5 mg ondansetron 2mg/mL 4 mg propofol (DIPRIVAN) injection 10 mg/mL vial 280 mg propofol infusion (mcg/kg/min) 478.71 mg rocuronium 10mg/mL 100 mg ceFAZolin (ANCEF) intermittent infusion 2 g in 100 mL dextrose PRE-MIX 4 g dexmedetomidine (PRECEDEX) in NS syringe (4 mcg/mL) 40 mcg HYDROmorphone 1 mg/mL 2 mg vecuronium 1 mg/mL 26 mg labetalol 5 mg/mL 20 mg lactated ringers infusion 2,300 mL Agents Name NO HELIOX O2 N2O Air Exp Sevoflurane Exp Isoflurane Exp Desflurane Exp N2O O2 Delivery Device Ins Sevoflurane Ins Isoflurane Ins Desflurane O2 Auxiliary Blood No blood administrations on file. Lines, Drains, and Airways Type Details Placement Removal Incision/Surgical Site 03/25/19; 1405; Mouth 03/25/19 1405 by Mahsa Villatoro RN Urethral Catheter 03/13/21; 1212; No; 20 03/13/21 1212 by (noatak) Azra Durand RN Incision/Surgical Site 03/13/21; 1340; 03/13/21 1340 by Bilateral; Abdomen; Port Azra Durand, sites x4, 1 mini lap, 1 RN drain site Peripheral IV 18 G; BD; Right, Dorsal; 03/13/21 1325 by 1429 by Hand; Tolerated well Inpatient, Nurse Peripheral IV 03/13/21; 1049; Left, 03/13/21 1049 by 03/15/21 1429 by Dorsal; Wrist; Alcohol; Thrapp, Radha Lilly, Binta alcaraz, Nurse None; Tolerated well RN Gastric Tube 03/13/21; 1118; 03/13/21 1118 by 03/13/21 1809 b y Decompression Joann Taylor Scott, Mered ith R, FLOORPERSON MEDICAL OFFICE ASST FLOORPERSON MEDICAL OFFICE ASST ETT Placement Date: 03/13/21 1137 by 03/13/21 1835 b y 03/13/21; Placement Joann Taylor Scott, M eredith R, Time: 113 (created via FLOORPERSON MEDICAL OFFICE ASST FLOORPERSON CRN A procedure documentation); Mask Ventilation: 2; Ease of Intubation: Easy; Technique: Direct laryngoscopy; ETT Type: Single; Tube Size: 8 mm; DL Blade Size: Subramanian 2; Grade View: 1; Adjucts: Stylet; Placement Person: MEDICAL OFFICE ASST Student; Attempts: 1; Depth: 22 cm Closed/Suction Drain 03/13/21; 1717; 1; Bulb; 03/13/21 1717 by 0 03/15/21 0840 by 15 Pashto (CHANNEL) Azra Durand [place], Susan L, RN RN documented in this encounter Social History Tobacco [...] / COVID-19? documented as of this encounter OR Notes Anesthesia Postprocedure Evaluation - GeraYasmine MD - 03/14/2021 6:20 AM CDT Patient: Kyree Webster Procedure(s): ROBOT-ASSISTED LAPAROSCOPIC PROSTATECTOMY AND PELVIC LYMPH NODE DISSECTION Diagnosis:Prostate cancer (H) [C61] Diagnosis Additional Information: No value filed. Anesthesia Type: General Note: Postop Pain Control: Uneventful Sign Out: Well controlled pain PONV: No Neuro/Psych: Uneventful Sign Out: Acceptable/Baseline neuro status Airway/Respiratory: Uneventful Sign Out: Acceptable/Baseline resp. status CV/Hemodynamics: Uneventful Sign Out: Acceptable CV status; No obvious hypovolemia; No obvious fluid overload Other NRE: NONE DID A NON-ROUTINE EVENT OCCUR? No Last vitals: Vitals Value Taken Time BP 148/82 03/13/211929 Temp 36.9 ??C (98.4 ??F) 03/13/21 184 Pulse 70 03/13/211936 Resp 13 03/13/211936 SpO2 95 % 03/13/211936 Vitals shown include unvalidated device data. Electronically Signed By: Yasmine Boss MD, March 14, 2021 6:20 AM Anesthesia Procedure Notes - Joann Taylor APRN MEDICAL OFFICE ASST - 03/13/2021 11:36 AM CDTAssociated Order(s): Airway Airway Patient location during procedure: OR Procedure Start/Stop Times: 03/13/2021 11:18 AM Staff - Anesthesiologist: Tomi Dawkins MD MEDICAL OFFICE ASST: Joann Taylor APRN MEDICAL OFFICE ASST Other Anesthesia Staff: Gino Vasquez Performed By: SRNAIndications and Patient Condition Indications for airway management: zoya-procedural Mask difficulty assessment: 2 - vent by mask + OA or adjuvant +/- NMBA Final Airway Details Final airway type: endotracheal airway Successful airway: ETT - single Endotracheal Airway Details ETT size (mm): 8.0 Cuffed: yes Successful intubation technique: direct laryngoscopy DL Blade Type: Subramanian 2 Grade View of Cords: 1 Adjucts: stylet Position: Right Measured from: gums/teeth Secured at (cm): 22 Bite block used: None Post intubation assessment Placement verified by: capnometry, equal breath sounds and chest rise Number of attempts at approach: 1 Number of other approaches attempted: 0 Secured with: pink tape Ease of procedure: easy Dentition: Unchanged Anesthesia Preprocedure Evaluation - Taylor Loya - 03/13/2021 10:34 AM CDT Anesthesia Pre-Procedure Evaluation Patient: Kyree Webster : 1950 Preoperative Diagnosis: Prostate cancer (H) [C61] Procedure : Procedure(s): ROBOT-ASSISTED LAPAROSCOPIC PROSTATECTOMY AND PELVIC LYMPH NODE DISSECTION Past Medical History: Diagnosis Date ??? Actinic keratosis ??? Gout ??? Hyperlipidemia ??? Hypertension ??? Noninfectious ileitis diverticulosis ??? Obese ??? Prostate cancer (H) Past Surgical History: Procedure Laterality Date ??? BIOPSY PROSTATE ??? CHOLECYSTECTOMY ??? COLONOSCOPY ??? ESOPHAGOSCOPY, GASTROSCOPY, DUODENOSCOPY (EGD), COMBINED N/A 03/25/2019 Procedure: Esophagogastroduodenoscopy with stent removal; Surgeon: Gary Rivera MD; Location: [facility] OR ??? EYE SURGERY Allergies Allergen Reactions ??? Simvastatin Muscle Pain (Myalgia) Social History Tobacco Use ??? Smoking status: Former Smoker Quit date: 2007 Years since quittin.6 ??? Smokeless tobacco: Never Used Substance Use Topics ??? Alcohol use: Yes Comment: one case of beer per week Wt Readings from Last 1 Encounters: 03/13/21 97.2 kg (214 lb 3.2 oz) Anesthesia Evaluation ROS/MED HX ENT/Pulmonary: (+) tobacco use, Past use, Neurologic: (-) no seizures and migraines Cardiovascular: (+) Dyslipidemia hypertension----- METS/Exercise Tolerance: Hematologic: Musculoskeletal: GI/Hepatic: (+) GERD, hiatal hernia, (-) liver disease Renal/Genitourinary: (-) renal disease Endo: Comment: IFG (+) Obesity, Psychiatric/Substance Use: Infectious Disease: Malignancy: (+) Malignancy, History of Prostate. Other: Physical Exam Airway Mallampati: I TM distance: > 3 FB Neck ROM: full Respiratory Devices and Support Dental (+) caps Cardiovascular cardiovascular exam normal Pulmonary breath sounds clear to auscultation OUTSIDE LABS: CBC: No results found for: WBC, HGB, HCT, PLT BMP: Lab Results Component Value Date POTASSIUM 3.9 02/23/2019 CR 1.01 02/23/2019 GLC 131 (A) 02/23/2019 COAGS: No results found for: PTT, INR, FIBR POC: No results found for: BGM, HCG, HCGS HEPATIC: Lab Results Component Value Date ALT 50 (A) 02/25/2019 AST 22 02/25/2019 OTHER: No results found for: PH, LACT, A1C, MARITZA, PHOS, MAG, LIPASE, AMYLASE, TSH, T4, T3, CRP, SED Anesthesia Plan ASA Status: 2 Anesthesia Type: General. - Airway: ETT Consents Anesthesia Plan(s) and associated risks, benefits, and realistic alternatives discussed. Questions answered and patient/scheduling representative(s) expressed understanding. - Discussed with: Patient Postoperative Care PONV prophylaxis: Ondansetron (or other 5HT-3), Dexamethasone or Solumedrol, Background Propofol Infusion Comments: Taylor Loya documented in this encounter Miscellaneous Notes Anesthesia Care Transfer Note - Margie Nieves APRN MEDICAL OFFICE ASST - 03/13/2021 6:44 PM CDT Patient: Kyree Webster Procedure(s): ROBOT-ASSISTED LAPAROSCOPIC PROSTATECTOMY AND PELVIC LYMPH NODE DISSECTION Diagnosis: Prostate cancer (H) [C61] Diagnosis Additional Information: No value filed. Anesthesia Type: General Note: Oropharynx: oropharynx clear of all foreign objects and spontaneously breathing Level of Consciousness: awake and drowsy Oxygen Supplementation: face mask Level of Supplemental Oxygen (L/min / FiO2): 6 Independent Airway: airway patency satisfactory and stable Dentition: dentition unchanged Vital Signs Stable: post-procedure vital signs reviewed and stable Report to RN Given: handoff report given Patient transferred to: PACU Comments: Neuromuscular blockade reversed after TOF 4/4, spontaneous respirations, adequate tidal volumes, followed commands to voice, oropharynx suctioned with soft flexible catheter, extubated atraumatically, extubated with suction, airway patent after extubation. Oxygen via facemask at 6 liters per minute to PACU. Oxygen tubing connected to wall O2 in PACU, SpO2, NiBP, and EKG monitors and alarms on and functioning, Henna Hugger warmer connected to patient gown, report on patient's clinical statusgiven to PERSONNEL RESEARCH SCIENTIST, RN questions answered. Handoff Report: Identifed the Patient, Identified the Reponsible Provider, Reviewed the pertinent medical history, Discussed the surgical course, Reviewed Intra-OP anesthesia mangement and issues during anesthesia, Set expectations for post-procedure period and Allowed opportunity for questions and acknowledgement of understanding Vitals: Vitals Value Taken Time BP 184/100 03/13/21 1841 Temp 36.9 ??C (98.4 ??F) 03/13/21 184 Pulse 67 03/13/21 1843 Resp 9 03/13/21 1843 SpO2 98 % 03/13/211842 Vitals shown include unvalidated device data. Electronically Signed By: Margie Nieves APRN CRNA March 13, 2021 6:44 PM documented in this encounter Plan of Treatment Not on filedocumented as of this encounter Procedures Procedure Name Priority Date/Time Associated Comments Diagnosis ANE AIRWAY ETT Routine 03/13/2021 11:36 Results f or this PERFORMABLE AM CDT procedure are i n the results section. documented in this encounter Results ANE AIRWAY ETT PERFORMABLE (03/13/2021 11:36 AM CDT) Narrative Joann Taylor APRN CRNA - 03/13/20 11:36 AM CDT Joann Taylor APRN CRNA ? 03/13/2021 11:37 AM Airway ? Patient location during procedure : OR ? Procedure Start/Stop Times: 2020 11:18 AM Staff - ? Anesthesiologist: ??Tomi Dawkins MD ? MEDICAL OFFICE ASST: Joann Taylor APRN CR NA ? Other Anesthesia Staff: Rahul Vasquez ? Performed By: SRNAIndications and Patient Condition ? Indications for airway management : zoya-procedural ? Mask difficulty assessment: 2 - v ent by mask + OA or adjuvant +/- NMBA Final Airway Details ? Final airway type: endotracheal a irway ? Successful airway: ETT - single Endotracheal Airway Details ? ETT size (mm): 8.0 ? Cuffed: yes ? Successful intubation technique: direct laryngoscopy ? DL Blade Type: Subramanian 2 ? Grade View of Cords: 1 ? Adjucts: stylet ? Position: Right ? Measured from: gums/teeth ? Secured at (cm): 22 ? Bite block used: None Post intubation assessment ? Placement verified by: capnometry , equal breath sounds and chest rise ? Number of attempts at approach: 1 ? Number of other approaches attemp kaiden: 0 ? Secured with: pink tape ? Ease of procedure: easy ? Dentition: Unchanged Taylor Loya PA ANESTHESIA documented in this encounter Visit Diagnoses Not on filedocumented in this encounter Administered Medications Inactive Administered Medications - up to 3 most recent administrations Medication Order MAR Action Action Date Dose Rate Site ceFAZolin (ANCEF) intermittent Given 03/13/2021 3:31 PM CDT 2 g infusion 2 g in 100 mL dextrose PRE-MIX Routine, 2 g, Intravenous, PRE-OP/PRE-PROCEDURE, Starting on Fri03/13/21 at 1011, For 1 dose, Give first dose within 1 hour PRIOR to incision. If patient weight is greater than or equal to 120 kg increase dose to 3 g., Indications: Perioperative Pharmacoprophylaxis, Pre-procedure Given 03/13/2021 11:28 AM CDT 2 g dexamethasone (DECADRON) injection Given 03/13/2021 11:32 AM CDT 4 mg Intravenous, PRN, Administer over 1 Minutes, Starting on Fri03/13/21 at 1132, Anesthesia Intra-op dexmedetomidine (PRECEDEX) in NS syringe (4 Given 03/13/2021 4:2 7 PM CDT 8 mcg mcg/mL) Intravenous, PRN, Starting on Fri03/13/21 at 1153, Anesthesia Intra-op Given 03/13/2021 4:18 PM CDT 12 mcg Given 03/13/2021 12:19 PM CDT 8 mcg fentaNYL (PF) (SUBLIMAZE) injection Given 03/13/2021 6:38 PM CDT 50 mcg Intravenous, PRN, Administer over 3-5 Minutes, Starting on Fri03/13/21 at 1113, Anesthesia Intra-op Given 03/13/2021 6:09 PM CDT 50 mcg Given 03/13/2021 11:53 AM CDT 50 mcg glycopyrrolate (ROBINUL) injection Given 03/13/2021 6:02 PM CDT 1 mg Intravenous, PRN, Administer over 1-2 Minutes, Starting on Fri03/13/21 at 1802, Anesthesia Intra-op HYDROmorphone (DILAUDID) injection Given 03/13/2021 4:48 PM CDT 0.5 mg Intravenous, PRN, Starting on Fri03/13/21 at 1204, Anesthesia Intra-op Given 03/13/2021 3:22 PM CDT 0.5 mg Given 03/13/2021 12:51 PM CDT 0.5 mg labetalol (NORMODYNE/TRANDATE) syringe Given 03/13/2021 1:01 PM CDT 5 mg Intravenous, PRN, Starting on Fri03/13/21 at 1225, Anesthesia Intra-op Given 03/13/2021 12:38 PM CDT 5 mg Given 03/13/2021 12:25 PM CDT 10 mg lactated ringers infusion New Bag 03/13/2021 5:50 PM CDT at 25 mL/hr, Intravenous, CONTINUOUS, IF patient NOT on dialysis., Pre-procedure, Starting on Fri03/13/21 at 1030, Until Fri03/13/21 at 1840 New Bag 03/13/2021 12:25 PM CDT New Bag 03/13/2021 10:49 AM CDT 25 mL/hr lidocaine 2% injection (MDV) Given 03/13/2021 11:13 AM CDT 100 mg Other, PRN, Starting on Fri03/13/21 at 1113, Anesthesia Intra-op neostigmine (PROSTIGMINE) injection Given 03/13/2021 6:02 PM CDT 5 mg Intravenous, PRN, Starting on Fri03/13/21 at 1802, Anesthesia Intra-op ondansetron (ZOFRAN) injection Given 03/13/2021 5:57 PM CDT 4 mg Intravenous, PRN, Administer over 2-5 Minutes, Starting on Fri03/13/21 at 1757, Anesthesia Intra-op propofol (DIPRIVAN) infusion New Bag 03/13/2021 12:11 25 mcg/kg/min 14.58 mL/hr Intravenous, CONTINUOUS PRN, PM CDT Starting on Fri03/13/21 at 1211, Anesthesia Intra-op propofol (DIPRIVAN) injection 10 mg/mL v ial Given 03/13/2021 6:10 PM CDT 50 mg Intravenous, PRN, Starting on Fri03/13/21 at 1113, Anesthesia Intra-op Given 03/13/2021 6:05 PM CDT 50 mg Given 03/13/2021 11:13 AM CDT 180 mg rocuronium injection Given 03/13/2021 11:47 AM CDT 10 mg Intravenous, PRN, Starting on Fri03/13/21 at 1135, Anesthesia Intra-op Given 03/13/2021 11:44 AM CDT 20 mg Given 03/13/2021 11:35 AM CDT 20 mg vecuronium (NORCURON) injection Given 03/13/2021 5:17 PM CDT 2 mg Intravenous, PRN, Starting on Fri03/13/21 at 1218, Anesthesia Intra-op Given 03/13/2021 4:46 PM CDT 2 mg Given 03/13/2021 4:30 PM CDT 2 mg documented in this encounter Care Teams Land Checker Relationship Specialty Start Date End Date Aung Almaguer PCP - General Family Practice 03/02/19 [place] [address] documented as of this encounter
--- OUTSIDE RECORDS SUMMARY | 2022-05-24 08:30 | XMS_ITS | Encounter Summary ---
:1950 Author Organization [facility] Address [address] [place] [id number] Care Team Providers Name Role Phone Aung Almaguer Primary Care Provider Encounter Details Date Type Department Care Team Description 03/10/2021 Travel Social History Tobacco Use Types Packs/Day Years Used Date Smoking Tobacco: Never Smokeless Tobacco: Never Sex Assigned at Date Recorded Not on file COVID-19 Exposure Response Date Recorded In the last month, have you been in contact with No / Unsure 03/10/2021 10:31 AM CDT someone who was confirmed or suspected to have Coronavirus / COVID-19? documented as of this encounter Plan of Treatment Not on filedocumented as of this encounter Visit Diagnoses Not on filedocumented in this encounter Care Teams Design Engineer Marine Equipment Relationship Specialty Start Date End Date Aung Almaguer PCP - General Family Practice 03/02/[address] [address] documented as of this encounter
--- OUTSIDE RECORDS SUMMARY | 2022-05-24 08:30 | XMS_ITS | Encounter Summary ---
:1950 Author Organization [facility] Address [address] [place] [address] Care Team Providers Name Role Phone Aung Almaguer Primary Care Provider Encounter Details Date Type Department Care Team Description 03/25/2019 Travel Social History Tobacco Use Types Packs/Day Years Used Date Smoking Tobacco: Never Smokeless Tobacco: Never Sex Assigned at Date Recorded Not on file documented as of this encounter Plan of Treatment Not on filedocumented as of this encounter Visit Diagnoses Not on filedocumented in this encounter Care Teams Manufacturing Engineering Technician Relationship Specialty Start Date End Date Aung Almaguer PCP - General Family Practice 03/02/19 [facility] [address] [place] [id number] documented as of this encounter
--- OUTSIDE RECORDS SUMMARY | 2022-05-24 08:30 | XMS_ITS | Encounter Summary ---
:1950 Author Organization [facility] Address [address] [place] [address]. [place] [address] Care Team Providers Name Role Phone Aung Almaguer Primary Care Provider Reason for Visit Auth/Cert Specialty Diagnoses / Procedures Referred By Contact Refer red To Contact Surgery Diagnoses removal of biliary stent Rh Periop Services Procedures ESOPHAGOGASTRODUODENOSCOPY (EGD) [address], [place] [address] Phone: Fax: Referral ID Status Reason Start Date Expiration Date Visits Requ ested Visits Authorized [id number] 1 1 Encounter Details Date Type Department Care Team Description 03/25/2019 Anesthesia Event [facility] Kev Szymanski PeriOp Services MD Roel [address] [place] [address] ANESTHESIA [id number] [place], [place] [address] (Wo rk) Anesthesia Record Procedure Summary Procedure Name Responsible Anesthesia Start Anesthesia Stop Anesthesiologist Time Time Esophagogastroduodenoscopy with Kev Szymanski, 03/25/19 1 348 03/25/19 1414 stent removal (Mouth) Events Date Time Event Comment 03/25/2019 1348 An Start 1348 An Start Data 1348 MD Present 1353 An Induction 1355 MD Present 1405 an stop data 1414 An Stop Electronically s igned by Mihir Hernandez APRN CRNA on 2018 2:14 PM 1414 Present Name Total midazolam 1mg/mL 2 mg propofol (DIPRIVAN) injection 10 mg/mL vial 130 mg propofol infusion (mcg/kg/min) 114.36 mg ketamine (KETALAR) inj 10 mg/mL 30 mg lactated ringers infusion 500 mL Agents Name NO HELIOX O2 N2O Air Exp Sevoflurane Exp Isoflurane Exp Desflurane Exp N2O O2 Delivery Device Ins Sevoflurane Ins Isoflurane Ins Desflurane O2 Auxiliary Blood No blood administrations on file. Lines, Drains, and Airways Type Details Placement Removal Incision/Surgical Site 03/25/19; 1405; 03/25/19 1405 by Mahsa Eason RN Peripheral IV 20 G 03/25/19 1229 by 03/25/19 1522 b Parris Gonzalez RN documented in this encounter Social History Tobacco Use Types Packs/Day Years Used Date Smoking Tobacco: Never Smokeless Tobacco: Never Sex Assigned at Date Recorded Not on file documented as of this encounter OR Notes Anesthesia Postprocedure Evaluation - Kev Szymanski MD - 03/25/2019 3:03 PM CDT Patient: Kyree Webster Procedure(s): Esophagogastroduodenoscopy with stent removal Diagnosis:removal of biliary stent Diagnosis Additional Information: No value filed. Anesthesia Type: MAC Note: Anesthesia Post Evaluation Patient location during evaluation: Phase 2 Patient participation: Able to fully participate in evaluation Level of consciousness: awake Pain management: adequate Airway patency: patent Cardiovascular status: acceptable Respiratory status: acceptable Hydration status: acceptable PONV: none Last vitals: Vitals: 03/25/19 1259 03/25/19 1414 03/25/19 1431 BP: (!) 155/73 123/71 130/84 Pulse: 80 95 95 Resp: 14 16 16 Temp: 98.7 ??F (37.1 ??C) 99.9 ??F (37.7 ??C) SpO2: 99% 95% 95% Electronically Signed By: Kev Szymanski MD March 25, 2019 3:03 PM Anesthesia Preprocedure Evaluation - Kev Szymanski MD - 03/25/2019 12:28 PM CDT Anesthesia Pre-Procedure Evaluation Patient: Kyree Webster : 1950 Preoperative Diagnosis: removal of biliary stent Procedure(s): upper endoscopy with side viewing scope Past Medical History: Diagnosis Date ??? Hypertension Past Surgical History: Procedure Laterality Date ??? EYE SURGERY Anesthesia Evaluation . ROS/MED HX ENT/Pulmonary: (+)tobacco use, , . . Neurologic: - neg neurologic ROS Cardiovascular: (+) Dyslipidemia, hypertension----. : . . . :. . METS/Exercise Tolerance: Hematologic: - neg hematologic ROS Musculoskeletal: GI/Hepatic: Renal/Genitourinary: (+) Other Renal/ Genitourinary, gout Endo: (+) Obesity, . Psychiatric: - neg psychiatric ROS Infectious Disease: Malignancy: Other: Physical Exam Normal systems: cardiovascular and pulmonary Airway Mallampati: II TM distance: >3 FB Neck ROM: full Dental Cardiovascular Pulmonary No results found for: WBC, HGB, HCT, PLT, CRP, SED, NA, POTASSIUM, CHLORIDE, CO2, BUN, CR, GLC, MARITZA,PHOS, MAG, ALBUMIN, PROTTOTAL, ALT, AST, GGT, ALKPHOS, BILITOTAL, BILIDIRECT, LIPASE, AMYLASE, KYLIE, PTT, INR, FIBR, TSH, T4, T3, HCG, HCGS, CKTOTAL, CKMB, TROPN Preop Vitals BP Readings from Last 3 Encounters: No data found for BP Pulse Readings from Last 3 Encounters: No data found for Pulse Resp Readings from Last 3 Encounters: No data found for Resp SpO2 Readings from Last 3 Encounters: No data found for SpO2 Temp Readings from Last 1 Encounters: No data found for Temp Ht Readings from Last 1 Encounters: No data found for Ht Wt Readings from Last 1 Encounters: No data found for Wt There is no height or weight on file to calculate BMI. Anesthesia Plan History & Physical Review History and physical reviewed and following examination; no interval change. ASA Status: 2 . NPO Status: > 8 hours Plan for MAC Reason for MAC: Chronic cardiopulmonary disease (G9) and Difficulty with conscious sedation (QS) Postoperative Care Postoperative pain management: IV analgesics. Consents Anesthetic plan, risks, benefits and alternatives discussed with: Patient. Use of blood products discussed: Yes. Use of blood products discussed with Patient. Consented to blood products. . Kev Szymanski MD . documented in this encounter Miscellaneous Notes Anesthesia Care Transfer Note - Mihir Hernandez APRN CRNA - 03/25/2019 2:14 PM CDT Images from the original note were not included. Patient: Kyree Webster Procedure(s): Esophagogastroduodenoscopy with stent removal Diagnosis: removal of biliary stent Diagnosis Additional Information: No value filed. Anesthesia Type: MAC Note: Airway :Room Air Patient transferred to:Phase II Handoff Report: Identifed the Patient, Identified the Reponsible Provider, Reviewed the pertinent medical history, Discussed the surgical course, Reviewed Intra-OP anesthesia mangement and issues during anesthesia, Set expectations for post-procedure period and Allowed opportunity for questions and acknowledgement of understanding Vitals: (Last set prior to Anesthesia Care Transfer) FERNANDO VITALS 03/25/2019 1335 - 03/25/2019 1414 03/25/2019 Pulse: 46 (Abnormal) SpO2: 98 % Electronically Signed By: Mihir Hernandez APRN CRNA March 25, 2019 2:14 PM documented in this encounter Plan of Treatment Not on filedocumented as of this encounter Visit Diagnoses Not on filedocumented in this encounter Administered Medications Inactive Administered Medications - up to 3 most recent administrations Medication Order MAR Action Action Date Dose Rate Site ketamine (KETALAR) injection Given 03/25/2019 1:58 PM CDT 10 mg Intravenous, PRN, Administer over 2-5 Minutes, Starting on Suzanne 03/25/19 at 1352, Anesthesia Intra-op Given 03/25/2019 1:55 PM CDT 10 mg Given 03/25/2019 1:52 PM CDT 10 mg lactated ringers infusion New Bag 03/25/2019 1:48 PM CDT at 25 mL/hr, Intravenous, CONTINUOUS, IF patient NOT on dialysis., Pre-procedure, Starting on Suzanne 03/25/19 at 1330, Until Suzanne 03/25/19 at 1412 midazolam (VERSED) injection Given 03/25/2019 1:48 PM CDT 2 mg Administer over 2 Minutes, PRN, Starting on Suzanne 03/25/19 at 1348, Anesthesia Intra-op propofol (DIPRIVAN) infusion New Bag 03/25/2019 1:53 PM 100 mcg/kg/min 57.2 mL/hr Intravenous, CONTINUOUS PRN, CDT Starting on Suzanne 03/25/19 at 1353, Anesthesia Intra-op propofol (DIPRIVAN) injection 10 mg/mL v ial Given 03/25/2019 1:55 PM CDT 50 mg PRN, Starting on Suzanne 03/25/19 at 1351, Anesthesia Intra-op Given 03/25/2019 1:53 PM CDT 50 mg Given 03/25/2019 1:51 PM CDT 30 mg documented in this encounter Care Teams Corporate Counsel Relationship Specialty Start Date End Date Aung Almaguer PCP - General Family Practice 03/02/[address] [address] documented as of this encounter
--- OUTSIDE RECORDS SUMMARY | 2022-05-24 08:30 | XMS_ITS | Encounter Summary ---
:1950 Author Organization [place] [facility] Address [address] [place] [address] Care Team Providers Name Role Phone Unavailable Primary Care Provider Unavailable Encounter Details Date Type Department Care Team Description 03/18/2008 Emergency room [facility] Results EMERGENCY [facility] [address] [place] [address] (Wo rk) Social History Tobacco Use Types Packs/Day Years Used Date Smoking Tobacco: Never Assessed Sex Assigned at Date Recorded Not on file documented as of this encounter Progress Notes Interface, Security Guard - 04/01/2008 1:08 AM CDT FINAL CHIEF COMPLAINT: Hard trouble clearing his throat. HISTORY OF PRESENT ILLNESS: Kathie Sutherland is a 57-year-old male who states over the last 2 days he has had allergy type symptoms, kind of itchy eyes and some congestion. This morning he woke up with some kind of a phlegmy feeling in his throat and has had a hard time clearing his throat. He has not been having coughing, no pain with swallowing, no problems with breathing, although he states that withclearing his throat he had kind of a time where he felt like he was not going to be able to breathe with that type of sensation. He did not have any shortness of breath but only as stated above. The coughing that he was having really was a type of clearing his throat and not a cough. The patient was recently started on lisinopril over the last couple of weeks. He took some Children's Benadryl at homeand is feeling better since then. No other complaints at this time. Again, he has no problems swallowing and no neck pain. PAST MEDICAL HISTORY: Hypertension. PAST SURGICAL HISTORY: No recent surgeries. SOCIAL HISTORY: The patient does not smoke. He occasionally drinks alcohol. MEDICATIONS: Benadryl, atenolol, [id number] allergy pill, lisinopril and aspirin. ALLERGIES: None. REVIEW OF SYSTEMS: As noted in HPI. All other systems are negative. PHYSICAL EXAMINATION: GENERAL: The patient is alert and cooperative. VITAL SIGNS: Initial blood pressure was 175/111, pulse 68, respiratory rate 16, temp 99.9 and O2 sats 96% on room air. HEENT: Head is normocephalic and atraumatic. Pupils are equal, round and reactiveto light. EOMs are intact. Oropharynx is pink, moist and intact. The patient's uvula is just slightly boggy. Otherwise, no masses noted. NECK: Supple, full range of motion, no masses or tenderness present with palpation. Trachea is midline. CARDIOVASCULAR: Regular rate and rhythm without murmurs. PULMONARY: Clear bilaterally. There are no rhonchi or wheezes present. ABDOMEN: Soft, positive bowel sounds, no tenderness. EXTREMITIES: Normal strength, normal range of motion. Pulses full and symmetric. Sensation appears normal. NEUROLOGIC: Cranial nerves II through XII appear grossly intact. There are no focal deficits.SKIN: [place], warm and dry. EMERGENCY DEPARTMENT COURSE: The patient has absolutely no pain in his neck or pain with swallowing, so I do not think this is epiglottitis. I do question whether this could be a reaction to lisinopril, since that was just started prior to this coming up. I did speak with him in detail on that and told him to watch this very carefully and if he has any swelling of the tongue, thickness of the tongueor swelling of the lips, he needs to be seen right away and stop the lisinopril. I gave him cimetidine 300 mg and prednisone 50 mg as well as Benadryl 50 mg orally in the ED and he is feeling much better afterwards. This could be as simple as just allergies; but again, I think it is important that he keeps in mind that this could be caused by his MATEO inhibitor. DIAGNOSIS: Mild uvular edema, possible allergies. PLAN: The patient will be discharged home. I am going to send him home on Benadryl, prednisone and Tagamet for the next 5 days. He needs to follow up with his primary care physician and again with theabove instructions. We rechecked his blood pressure prior to going home and blood pressure is 139/75. Electronically signed on 04/01/2008 01:07 by DEIDRE BHAT MD MT: JARRELL#[id number] Name: KATHIE SUTHERLAND Account: [id number] : 1950 Visit Date: 03/18/2008 Document: [id number] documented in this encounter Plan of Treatment Not on filedocumented as of this encounter Visit Diagnoses Not on filedocumented in this encounter
--- OUTSIDE RECORDS SUMMARY | 2022-05-24 08:30 | XMS_ITS | Encounter Summary ---
:1950 Author Organization [facility] Address [address] [place] [id number] Care Team Providers Name Role Phone Aung Almaguer Primary Care Provider Reason for Visit Auth/Cert Specialty Diagnoses / Procedures Referred By Contact Refer red To Contact Surgery Diagnoses Prostate cancer (H) Prostate cancer (H) [C61] Sh Periop Services Procedures [facility] LAPAROSCOPY, SURGICAL PROSTATECTOMY, RETROPUBIC RADICAL, W/NERVE SPARING ROBOT-ASSISTED LAPAROSCOPIC PROSTATECTOMY AND PELVIC LYMPH NODE DISSECTION [address], [address] [place] [phone] Phone: Referral ID Status Reason Start Date Expiration Date Visits Requ ested Visits Authorized [id number] 1 1 Encounter Details Date Type Department Care Team Description 03/13[facility] [place] [facility] PROSTATE[facility] PELVIC [address] LYMPH NODE DISSECTION [address] [place] [phone] 200 [place] [id number] (Wo rk) Surgery Details Date/Time Status Location OR Service Patient Case Case Traum a Class Class Type Case? 03/13/21 11:30 Posted SH OR OR Mendel [facility] Same Day AM 43 Urology Surgery Panel 1 Procedure LRB Anes Op Region Wound Class Commen ts ROBOT-ASSISTED Bilateral General Pelvis II-Clean Contaminated LAPAROSCOPIC PROSTATECTOMY AND PELVIC LYMPH NODE DISSECTION Surgeon Surgeon Role Service Panel Elizabeth Lafleur PA-C Assisting Natural Science Manager Authorization 1 Mason Spence MD Primary [facility] Urology 1 documented in this encounter Social History [...] Sign Reading Time Taken Comments Blood Pressure 167/91 03/13/2021 10:24 AM CDT Pulse - - Temperature 36.9 ??C (98.4 ??F) 03/13/2021 10:24 AM CDT Respiratory Rate 18 03/13/2021 10:24 AM CDT Oxygen Saturation 96% 03/13/2021 10:24 AM CDT Inhaled Oxygen Concentration - - [...] Care Everywhere. Indwelling Urinary Catheter, Discharge Instructions (Ivorian)Leg Bag, Discharge Instructions (Ivorian)documented in this encounter Medications at Time of [...] Intake/Output Summary (Last 24 hours) at 03/15/2021 0751 Last data filed at 03/15/2021 0643 Gross [...] Anticipate discharge mid-day/early afternoon Elizabeth Lafleur PA-C PA UROLOGY [email or web address] Text Page (7:30am to 4:30pm) Wilmer Dowling MD - 03/14/2021 10:58 AM CDT UROLOGY ADDENDUM. CLINICALLY STABLE, SLIGHT HEMATURIA, HAD A CLOT CLEARED. MOVING SLOWLY. HE WOULD LIKE TO STAY TILL AM. [facility] AM. Mason Spence [...] lymphadenectomy, modifier 22 Surgeon: Mason Spence MD Natural Science Manager: Dai Gamez PA-C Date of Procedure: 03/13/21 OPERATIVE INDICATION: Kyree Webster is a 70 year old male with prostate cancer. After understanding various management options he elected to undergo today's procedure. Clinical stage: [id number] PSA: 9 PRIYA: no nodules MRI findings: [...] manner. Time out was called. An 18 [place]ian [employer] catheter was placed and the bladder was [...] on a double armed needle. An 18 [place]ian [employer] catheter was placed and the bladder irrigated [...] removed under vision and the 12 mm under water assistant port was closed with an 0 Vicryl using a Dre Cruz device I slightly extended the supraumbilical incision [...] yellow urine. No clots today yet seen Boatswain'S Mate reinforced akhtar care education for home with pt.Pt refuses the leg bag - stating just wants his bedside bag for now since doesn't expect to go anywhere after discharge till his next urology appt. MADISON drain which was draining small amounts of sanguinous fluid last night and this am was removed by order by Float Resource nurse Sebatsien. -Dressing over MADISON site dry/intact. Extra gauze/tape [...] between cares. Plan of Care - Allison Miller RN - 03/14/2021 7:11 PM CDT 3-7p: [...] Prostatectomy with bilateral pelvic lymphadenectomy Oliguria last shift engineer (and bladder scanned @0335 with 0ml output) [...] dressing over MADISON site reinforced by prev shift engineer x1; drainage is contained within the most [...] drain present; Abdominal incisions with some erythema IRMA; Urology following. Pending discharge. documented in this [...] unsp DRAIN / Unknown Non-blood 03/14/2021 11:39 02/19 Collection / AM CDT 12:01 PM CDT Unknown Narrative LABORATORY - 03/14/2021 1:34 PM CDT No reference ranges have been establishe d. ??This result should be interpreted in the context of the patient's clinical condit ion and compared to simultaneous measurement in the patient's blood. Mason Spence MD LAB - BODY FLUIDS [facility] Performing Organization Address City/State/ZIP Code Phon e Number [place] [address] [phone] Care Lab [address] floor, Room [address]B (ABNORMAL) Hemoglobin (03/14/2021 6:57 AM CDT) athologist Signature Hemoglobin 13.0 (L) 13.3 - 17.7 03/14/2021 LABORATORY g/dL 7:33 AM CDT Specimen Anatomical Collection Method / Collection Time Recei samira Time (Source) Location / Volume Laterality Blood STRUCTURE OF RIGHT Venipuncture / 03/14/2021 6:57 08/11/2020 7:31 UPPER LIMB / Unknown AM CDT AM CDT Unknown Dai Gamez PA-C LAB - BLOOD ORDERABLES Performing Organization Address City/State/ZIP Code Phon e [place] [facility] [phone] Care Lab [address] [...] STRUCTURE OF RIGHT Venipuncture / 03/14/2021 6:57 /11/2020 7:31 UPPER LIMB / Unknown AM CDT AM CDT Unknown Dai Gamez PA-C LAB - BLOOD ORDERABLES Performing Organization Address City/State/ZIP Code Phon e Number [place]AT[place] [facility] [phone] Care Lab [address] 1[address], Room 20B Glucose by meter (03/14/2021 6:53 AM CDT) P athologist Signature GLUCOSE BY 99 70 - 99 03/14/2021 LABORATORY METER POCT mg/dL 6:59 AM CDT POC Specimen Anatomical Collection Method Collection Time Receive d Time (Source) Location / / Volume Laterality Blood BLOOD SPECIMEN / 03/14/2021 6:53 AM 03/14 6:59 Unknown CDT AM CDT Mason Spence MD LAB - [facility] POCT Performing Organization Address City/State/ZIP Code Phon e [place] [phone] Care Lab [address] 1[address] floor, Room 20B (ABNORMAL) Surgical Pathology Exam (03/13/2021 1:56 PM CDT) Component Value Ref Test Analysis Performed Pathologis t Range Method Time At Signature Case Report Surgical Pathology Report ? Case: [id number] ? 2021 Authorizing Provider: ??Mason Campbell ? Collected: ? 03/13/2021 01:56 PM ? 1:46 PM LABORATOR Y ? MD Ren ? CDT Ordering Location: ? [facility] [place] ?Received: ?03/14/2021 08:48 AM ? [facility] ? Pathologist: ? Jason, Austen Crook, ? Specimens: ?? A) - Prostate, PROSTATE and venetie ira vescicles ? B) - Lymp h Node(s), [...] Y electronically CDT signed by The immunohistochemical stai n control is reviewed showing an appropriate [...] 2 (see comment) MD Armaan on - Woodstock score 7, patterns 3 + 4 03/18/2021 [...] links present at the bottom of the Epic online report. For best visualization of the images, after opening with left click, right click on the image and select size to fit. Comment 4: Process used to d etermine the tumor volume as percent of total prostate: (1) Total volume of prostate = 56 x 50 x 48 mm = 375311 mm3 (2) Greatest total volume o f [...] 56 x 50 x 48 mm = 481437 mm3 PERCENTAGE OF TUMOR BY VOLUME IN PROSTATE = (2730/006441) x 100 = 2.0% Comment 5: The [...] to multiple possible scores depending on various Woodstock pattern combinations; (c) lowest grade 1 as opposed to current practice of Jolanta score 6, with the potential to reduce overtreatment of indolent prostate cancer. The new grading scheme corre lates with the prior Woodstock grading system as follows: Grade Group 1 = Jolanta score 6 or less Grade Group 2 = Woodstock score 3+4=7 Grade Group 3 = Jolanta score 4+3 = 7 Grade Group 4 = Jolanta score 8 Grade Group 5 = Woodstock score 9-10 REFERENCES (1) [employer] [place] [employer] Cancer Protocols and Checklists, December 2011. (2) Richard SANCHEZ, Joann MJ, Sadia DD, et al. A contemporary prostate cancer grading [...] and Gleas on Score: ?Grade group 2 (Woodstock Score 3 + 4 = 7) ? [...] 2021 Information PSA at outside 1:46 PM LABORATORY [facility]) of CDT 10.25. MRI showed Hypointense [...] LABORATORY CDT Gross A(1). Prostate, PROSTATE and venetie ira vescicles: 2021 Description The specimen is received in formalin labeled with the patient's name, medical record number, and other identifying information and designated prostate and seminal vesicles. It consists of a [facility] PM LABORATORY al prostatectomy specimen me [...] discret e tumor nodules are noted grossly. Traffic Control Specialist sections including the entire posterior aspect are submitted. Summary of Sections: A1 - right seminal vesicle and en face vas deferens margin A2 - left seminal vesicle and en face vas deferens margin A3-A4 - right bladder neck margin A5-A6 - left bladder neck margin A7 - right distal urethral margin A8 - left distal urethral margin A9-slice 1, right posterior B65-wvump 1, left posterior K45-dwcoh 2, right posterior N06-qxbfg 2, left posterior M86-unhsx 3, right posterior Z33-rtjho 3, left posterior J32-nyzry 4, right posterior A21-ludpi 4, left posterior W98-sgqfc 5, right posterior O00-jndcv 5, left posterior K09-klyin 6, right posterior I58-phlyl 6, left posterior H93-scxsg 7, right posterior F74-cipqt 7, left posterior Q84-djtxx 8, right anterior W76-iqovm 8, right posterior Q84-kfkgf 8, left anterior X57-fqeag 8, left posterior T28-qsxcg 9, right posterior J67-unlfw 9, left posterior Y91-eakfj 10, right posterior M12-jluna 10, central posterior R09-zmiqm 10, left posterior D77-gpqal 11, right posterior W10-amfds 11, central posterior M22-jdjwp 11, left posterior K92-okjao 12, right posterior W63-vpkgv 12, central posterior G24-mttuz 12, left posterior W99-qnumk 13, right posterior L94-jvnhd 13, left posterior L91-ummqz 14, right posterior W25-gktuk 14, left posterior C00-jtfki 15, right posterior Q27-vftwv 15, left posterior I80-mdmnk 16, right posterior P14-zewtu 16, left posterior B(2). Lymph Node(s), RIGHT [...] tissue fragment. Entirely submitted in 1 cassette. (Joan Carr, PA ASCP CM) Microscopic A. Sections of the prostate show areas of small acinar type adenocarcinoma identified in the blocks as noted below with the areas of tumor as described. Each of the blocks being from the right posterior 2021 SH Description lobe except where otherwise specified. The majority of the tumor present is Jolanta pattern 3 with focal areas of cribriform Jolatna pattern 4 which appears to comprise 5% [...] (Austen Gomez MD, 03/18/2021) Special Immunohistochemical 2021 SH Stains stains to 1:46 PM LABORATORY p504s+p63+CKHMW are CDT pending on blocks A29 and A33 to evaluate for the presence of intraductal carcinoma with an addendum to follow with the results of these stains. MCRS Yes (A) N/A 2021 SH 1:46 PM LABORATORY CDT Performing The technical 2021 SH Labs component of this 1:46 PM LABORATORY testing was completed CDT at [facility] Laboratory Specimen Anatomical Collection Method Collection Time [...] attachment that is no t available. Mason Spence MD LAB - [facility] AP Performing Organization Address City/[facility]/ZIP Code Phon e Number LABORATORY [facility] [place] [phone] Care Lab [address] floor, Room 20B Adult Type and Screen (03/13/2021 10:28 AM CDT) [facility] gist Method Time Signature ABO/RH(D) O POS 03/13/2021 BLOOD 10:15 AM BANK CDT Antibody Negative Negative 03/13/2021 BLOOD Screen 10:15 AM BANK CDT SPECIMEN [id number] 03/13/2021 BLOOD EXPIRATION 10:15 AM BANK DATE CDT Specimen Anatomical Collection Method / Collection Time Recei samira Time (Source) Location / Volume Laterality Blood STRUCTURE OF RIGHT Venipuncture / 03/13/2021 10:28 UPPER LIMB / Unknown AM CDT 10:34 AM CDT Unknown Sandra Cobian PA-C LAB - BLOOD BANK TEST ORDER Performing Organization Address [facility]/ZIP Code Phon e Number BLOOD BANK [address] [place] [phone] Potassium (03/13/2021 10:28 AM CDT) P athologist [...] Address City/State/ZIP Code Phon e Number LABORATORY [facility] [place], [place] [phone] Care Lab [address] 1[address] floor, Room 20B LAB RESULT - [...] Given 03/13/2021 9:01 PM CDT 5 mg bupivacaine (MARCAINE) 0.5% injection MD V Given 03/13/2021 6:37 PM CDT 30 mLs PRN, Starting on Fri03/13/21 at 1837, Intra-procedure calcium carbonate (TUMS) chewable tablet 500 Given [...] PRN, opioid reversal, Starting on Fri03/13/21 at 1958, Administer intramuscular if an int ravenous route [...] PRN, nausea, vomiting, Starting on Fri03/13/21 at 1947, This is [...] side effects . Hold while on IV GI TECH or with regular IV opioid dosing. oxyCODONE (ROXICODONE) tablet 5 mg Given 03/14/2021 11:44 AM CDT 5 mg 5 mg, Oral, EVERY 4 HOURS PRN, other, moderate pain (pain rating 4-6), Starting on Fri03/13/21 at 1947, Hold oral PRN dose for analgesic side effects. Notify provider to assess for uncontrolled pain or analgesic side effects. Hold while on IV GI TECH or with regular IV opioid dosing. Given [...] Step 2 of nausea and vomiting ma nagement. If nausea not resolved in 15-30 minutes, Notify provider. sodium chloride (PF) 0.9% PF flush 3 mL Given 03/14/2021 8:28 PM CDT 3 mLs 3 mL, Intracatheter, EVERY 8 HOURS, First dose on Fri03/13/21 at 2000, to lock peripheral IV dormant line sodium chloride 0.9% (bag) Given 03/13/2021 12:16 PM 1,000 mLs Operative irrigation CDT Site/Surgical S ite PRN, Starting on Fri03/13/21 at 1216, Intra-procedure sodium chloride 0.9% (bottle) irrigation Given 03/13/2021 11:46 AM CDT 1,000 mLs PRN, Starting on Fri03/13/21 at 1146, Intra-procedure sodium chloride 0.9% infusion Restarted 03/14/2021 1:16 PM CDT 75 mL/hr at 75 mL/hr, Intravenous, CONTINUOUS, Starting on Fri03/13/21 at 2000, Until Suzanne 03/15/21 at 1534 New Bag 03/13/2021 8:09 PM CDT 75 mL/hr sterile water (bottle) Given 03/13/2021 12:16 PM 1,000 mLs Operative irrigation CDT Site/Surgical S ite PRN, Intra-procedure, Starting on Fri03/13/21 at 1216, Until Fri03/13/21 at 1840 documented in this encounter Active and Recently [...] Grady RN)0834 (Given - Provider: Keysha Bonilla RN)1400 (Canceled Entry - Provider: Orders Generic Provider [...] Lugo RN) 0909 (Given - Provider: Keysha Bonilla RN) 0835 (Given - Provider: Keysha Bonilla RN) 5 mg, Oral, DAILY, First dose on Fri03/13/21 at 2000 ceFAZolin (ANCEF) 1 g vial to attach to NS 100 ml bag for ADULT or 50 ml bag for PEDS (COMPLETED) 2101 (New Bag - Provider: Alena Lugo, LIUDMILA) 0625 (New Bag - Provider: Alena Lugo RN)1448 (New Bag - Provider: Keysha Bonilla, LIUDMILA) Routine, 1 g, Intravenous, EVERY 8 HOURS , First dose on Fri03/13/21 at 2200, For 3 doses, Indications: Perioperative Pharmacoprophylaxis ceFAZolin (ANCEF) intermittent infusion 2 g in 100 mL dextrose PRE-MIX (COMPLETED) 1035 (Handoff - Provider: Radha hope RN)1128 (Given - Provider: Joann Taylor APRN ACCESS MANAGER)1531 (Given - Provider: Margie Nieves APRN ACCESS MANAGER) Routine, 2 g, Intravenous, PRE-OP/PRE-DE OCEDURE, Starting on Fri03/13/21 at 1011, For 1 dose, Give first dose within 1 hour PRIOR to incision. If patient weight is greater than or equal to 120 kg increa se dose to 3 g., Indications: Perioperative Pharmacoprophyla xis, Pre-procedure ketorolac (TORADOL) injection 15 mg (CANCELED) 225 (G iven - Provider: Alena Lugo RN) 0625 (Given - Provider: Alena Lugo [...] IV Infusing)1200 (Not Given - Provider: Keysha Bonilla, LIUDMILA - Reason: IV Infusing)2027 (Given - Provider: Devante Grady RN) 0511 [...] (Canceled Entry - Provider: Joann Taylor APRN ACCESS MANAGER - Comment: Switch to gravity)1107 (Canceled Entry - Provider: Joann Taylor APRN CRNA) at 25 mL/hr, Intravenous, CONTINUOUS, IF patient NOT on dialysis., Pre- procedure, Starting on Fri03/13/21 at 1030, Until Fri03/13/21 at 1840 1224 (Paused - Provider: Joann Taylor APRN ACCESS MANAGER - Comment: Switch to gravity)1225 (New Bag - Provider: Joann Taylor APRN CRNA)1750 (New Bag - Provider: Margie Nieves APRN CRNA) 1827 (Anesthesia Volume Adju stment - Provider: Margie Nieves APRN CRNA)2028 (Stopped - Provider: Alena Lugo RN) sodium chloride 0.9% infusion 2008 (New Bag - Provider: Lashaun Lugo RN) 0922 (Stopped - Provider: Keysha Bonilla, LIUDMILA - Comment: stopped while 500cc fluid bolus infusing]]])1316 (Restarted - Provider: Keysha Bonilla, LIUDMILA)1700 (Stopped - Provider: Keysha Bonilla, LIUDMILA - Comment: IV fluis reportedly stopped this kirt shift b at 75 mL/hr, Intravenous, CONTINUOUS, St arting on Fri03/13/21 at 2000, Until Fri03/15/21 at 1534 y other nurse (not ghost writer)) PRN Medication Order 03/13/2021 03/14/2021 03/15/2021 alum & mag hydroxide-simethicone (MAALOX ) 200-200-25 MG chewable tablet 2 tablet 2306 (Given - Provider: Devante Grady , LIUDMILA) 2 tablet, Oral, EVERY 6 HOURS PRN, [...] with oral analgesics, Starting on Fri03/13/21 at 1948, Hold IV PRN opioid dose for analgesic s desmond effects. Notify provider to assess for uncontrolled pain or analgesic side effects. labetalol (NORMODYNE/TRANDATE) injection 5 mg (CANCELE D) 1847 (Given - Provider: Jason Hammonds RN) 5 [...] allergy to any local anesthetic or any madgiel product. Do NOT use both lidocaine intradermal/subcutaneous [...] of NS to facilitate titration of response. jpztzjje-snnhnxtlmc-lglohkqlm (NEOSPORIN) ointment Topical, 4 TIMES DAILY PRN, [...] (ZOFRAN-ODT) ODT tab 4 mg(Linked Group 3) 0 (Given - Provider: Alena Lugo RN) 4 [...] sic side effects. Hold while on IV GI TECH or with regular IV opioid dosing. oxyCODONE (ROXICODONE) tablet 5 mg(Linked Group 4) 1008 (Given - Provider: Keysha Bonilla RN - Comment: upper abd pain, akhtar site abd)1144 (Given - Provider: Keysha Bonilla RN - Comment: AOOB PAIN AND AKHTAR CATH SITE PAIN - OXY REPEATED) 5 mg, Oral, EVERY 4 HOURS PRN, other, mo derate pain (pain rating 4-6), Starting on Fri03/13/21 at 1947, Hold oral PRN dose for analgesic side effects. Notify provider to assess for uncontrolled pain or analgesic side effects. Hold while on IV GI TECH or with regular IV opioid dosing. prochlorperazine [...] lock dormant line, Starting on Fri03/13/21 at 1947 sodium chloride 0.9% (bag) irrigation (CANCELED) 1216 [...] PRN, opioid reversal, Starting on Fri03/13/21 at 1957
Administer intramuscular if an intravenous route is [...] after each naloxone dose. Consider transfer to [facility] if patient respiratory parameters hav e not [...] PRN, opioid reversal, Starting on Fri03/13/21 at 1957
Administer intramuscular if an intravenous route is [...] nausea, v omiting, Starting on Fri03/13/21 at 1947
This is [...] over 2-5 Minutes, Starting on Fri03/13/21 at 1948
This is [...] side effects. Ho ld while on IV GI TECH or with regular IV opioid dosing.
Or oxyCODONE (ROXICODONE) tablet 10 mgJump to med 10 mg, Oral, EVERY 4 HOURS PRN, severe p ain, (pain rating 7-10), Starting on Fri03/13/21 at 1947
Hold oral PRN dose for analgesic side effects. Notify provider to assess for uncontrolled pain o r analgesic side effects. Hold whi le on IV GI TECH or with regular IV opioid dosing.
Group [...] nausea, v omiting, Starting on Fri03/13/21 at 1947
This is Step 2 of nausea and vomiting management. If nausea not resolved in 15-30 minutes, Notify provider.
documented in this encounter Care Teams Group President Relationship Specialty Start Date End Date Aung Almaguer PCP - General Family Practice 03/02/[address] [address] documented as of this encounter
--- OUTSIDE RECORDS SUMMARY | 2022-05-24 08:30 | XMS_ITS | Encounter Summary ---
:1950 Author Organization [place] Address [address] [place] [phone] Care Team Providers Name Role Phone Aung Almaguer Primary Care Provider Encounter Details Date Type Department Care Team Description 03/07/2021 Travel Social History Tobacco Use Types Packs/Day Years Used Date Smoking Tobacco: Never Smokeless Tobacco: Never Sex Assigned at Date Recorded Not on file COVID-19 Exposure Response Date Recorded In the last month, have you been in contact with No / Unsure 03/07/2021 10:59 AM CDT someone who was confirmed or suspected to have Coronavirus / COVID-19? documented as of this encounter Plan of Treatment Not on filedocumented as of this encounter Visit Diagnoses Not on filedocumented in this encounter Care Teams Insurance Professional Relationship Specialty Start Date End Date Aung Almaguer PCP - General Family Practice 03/02/[address] [address] documented as of this encounter
--- OUTSIDE RECORDS SUMMARY | 2022-05-24 08:30 | XMS_ITS | Encounter Summary ---
:1950 Author Organization [facility] Address [address] [place] [address] Care Team Providers Name Role Phone Aung Almaguer Primary Care Provider Reason for Visit Auth/Cert Specialty Diagnoses / Procedures Referred By Contact Refer red To Contact Surgery Diagnoses removal of biliary stent Rh Periop Services Procedures ESOPHAGOGASTRODUODENOSCOPY (EGD) [address] [place], [place] [address] Phone: Fax: Referral ID Status Reason Start Date Expiration Date Visits Requ ested Visits Authorized [id number] 1 1 Encounter Details Date Type Department Care Team Description 03/25/2019 Hospital Encounter [facility] Abimael Rivera MD [place] [facility] [address] [facility] [address] [place], [place] [id number] Quentin PreOP/PostOP Jessy Duffy MD [address] [place] [address] [address] [place], [place] [address] [address] [place] [address] Social History Tobacco Use Types Packs/Day Years Used Date Smoking Tobacco: Never Smokeless Tobacco: Never Sex Assigned at Date Recorded Not on file documented as of this encounter Last Filed Vital Signs Vital Sign Reading Time Taken Comments Blood Pressure 154/78 03/25/2019 3:13 PM CDT Pulse 68 03/25/2019 3:13 PM CDT Temperature 37.1 ??C (98.7 ??F) 03/25/2019 3:13 PM CDT Respiratory Rate 16 03/25/2019 3:13 PM CDT Oxygen Saturation 96% 03/25/2019 3:13 PM CDT Inhaled Oxygen Concentration - - [...] Component Value Ref Test Analysis Performed At [facility] Range Method Time Signature Upper GI [facility] RADIO LOGY Endoscopy RESULTS Patient Name: Kyree Webster ? Procedure Date: 03/25/2019 1:14 PM ? Accou nt Number: [id number] Date of : 1950 ?Admit Type: Out patient Age: 69 ? Gender: Male Attending MD: Gary Rivera MD ??Total Sedation Time: Instrument Name: 154 ? Procedure: ?Upper GI endoscopy Indications: ?Stent removal Providers: ?Gary Rivera MD (Doc tor) Referring MD: ? Medicines: ?Monitored Anesthesia Care [...] monitored continuously. The ?Olympus Duodenoscope Model #[id number], SN#[id number] ?was introduced through the mouth, and advanced [...] Procedure Code(s): ? --- Professional --- ? 16063, Esophagogastroduodenoscopy , flexible, transoral; with removal of ? foreign body(s) CPT copyright 2017 [employer]. All rights reserved. The codes documented in this report are prelimin tawanna and upon neon sign worker review may be revised to meet current compliance requirements. Gary Rivera M.D. Gary Rivera MD 03/25/2019 2:33:46 PM I was physically present for the entire viewing portion of t he exam. Gary Rivera MD Number of Addenda: 0 Note Initiated On: 03/25/2019 1:14 PM MRN: ?[id number] Procedure Date: ? 03/25/2019 1:14:13 PM Total [...] sedation, Administer over 1 Minutes, Starting on [facility] 03/25/19 at 1444, For 12 hours, Give [...] is greater than 10, Sta rting on [facility] 03/25/19 at 1419, Max cumulative dose = [...] Starting on Suzanne 03/25/19 at 1430, Until [facility] 03/25/19 at 1724 May continue current IV fluid if patient has IV fluids infusing until discharge. CONTINUOUS PRN, Starting on Suzanne 03/25/19 at 1444, Until [facility] 03/25/19 at 1724, Post-procedure meperidine (DEMEROL) injection [...] (New Bag - Provider: Mihir Hernandez APRN MECHANICAL MAINTENANCE INSTRUCTOR) at 25 mL/hr, Intravenous, CONTINUOUS, IF patient NOT on dialysis., Pre- procedure, Starting Suzanne 03/25/19 at 1330, Until Suzanne 03/25/19 at 1412 1414 (Anesthesia Volume Adjustment - Provider: Mihir Hernandez APRN CRNA) PRN Medication Order 03/23/2019 03/24/2019 03/25/2019 fentaNYL [...] mg 0.3-0.5 mg, Intravenous, EVERY 10 MIN MD N, Starting Suzanne 03/25/19 at 1419, Until [...] oral disintegrating tablet through foil backing. Ad pit furnace melter immediately on tongue and oral disintegrating tablet [...]
Post-procedure documented in this encounter Care Teams Product Support Consultant Relationship Specialty Start Date End Date Aung Almaguer PCP - General Family Practice 03/02/[address] [address] documented as of this encounter
--- OUTSIDE RECORDS SUMMARY | 2022-05-24 08:30 | XMS_ITS | Encounter Summary ---
:1950 Author Organization [facility] Address [address] [place] [address]. [place] [address] Care Team Providers Name Role Phone Aung Almaguer Primary Care Provider Encounter Details Date Type Department Care Team Description 01/13/2021 Orders Only [facility] OR Mason Mcclure MD screening for other [address] [facility] [place] [address] LTD [phone] [address] [place] [address] (Wo rk) Social History Tobacco Use Types Packs/Day Years Used Date Smoking Tobacco: Never Smokeless Tobacco: Never Sex Assigned at Date Recorded Not on file documented as of this encounter Plan of Treatment Not on filedocumented as of this encounter Results Asymptomatic COVID-19 Virus (Coronavirus) by PCR Nasopharyngeal (03/10/2021 10:32 AM CDT) Analysis Performed At Patho logist Time Signature SARS CoV2 PCR Negative Negative 03/10/2021 [facility] 11:46 PM CDT LABORATORY Comment: NEGATIVE: SARS-CoV-2 (COVID-19) RNA not detected, presumed negative. Specimen Anatomical Location / Collection Method Collection Nitish e Received Time (Source) Laterality / Volume Swab NASOPHARYNGEAL Non-blood 03/10/2021 10:32 STRUCTURE / Unknown Collection / AM CDT 10:54 AM CDT Unknown Narrative [facility] - 03/10/2021 11:46 PM CDT Testing was performed using the Xpert Xpress SARS-CoV-2 Assay on the [employer]-Xpert Instrument Systems. A dditional information about this Emergency Use Authorization (EUA) a ssay can be found via the Lab Guide. This test should be ordered for t he detection of SARS-CoV-2 in individuals who meet SARS-CoV-2 clinical and/or epidemiological criteria. Test performance is unknown in asymptomatic patients. This test is for in vitro diagnostic use unde r the FDA EUA for laboratories certified under CLIA to per form high complexity testing. This test has not been FDA cleared or ap proved. A negative result does not rule out the presence of PCR in hibitors in the specimen or target RNA in concentration below the li caitlin of detection for the assay. The possibility of a false negati ve should be considered if the patient's recent exposure or clinica l presentation suggests COVID-19. This test was validated by the [facility] Infectious Diseases Diagnostic Laboratory. This lab oratory is certified under the Clinical Laboratory Improvement Amen dments of 1987 (CLIA-88) as qualified to perform high complexity lab oratory testing. Mason Spence MD LAB - [facility] Organization Address City/State/ZIP Code Phon e Number [facility]OR[facility] [place] [address] Diag. Lab 500 [facility], Room [address]297 [facility] Infectious [place], [place] [phone] Diseases Diagnostic [phone], [facility] Lab (IDDL) [address] [facility], Room D297 documented in this encounter Visit Diagnoses Diagnosis Encounter for screening for other viral diseases documented in this encounter Care Teams Boilermaker Relationship Specialty Start Date End Date Aung Almaguer PCP - General Family Practice 03/02/[address] [address] documented as of this encounter
--- OUTSIDE RECORDS SUMMARY | 2022-05-24 08:30 | XMS_ITS | Encounter Summary ---
:1950 Author Organization [facility] Address [address] [place] [address] Care Team Providers Name Role Phone Aung Almaguer Primary Care Provider Encounter Details Date Type Department Care Team Description 03/10/2021 [facility] Mason Spence Encounter for screening Urgent Care Malcolm Mcclure MD for other viral [address] [facility] [place], [place] [address] [facility] [address] [facility] [phone] [place], [place] [phone] (Wo rk) Social History Tobacco Use Types [...] encounter Procedures Procedure Name Priority Date/Time Associated Diagnosis Comme nts COVID-19 VIRUS Routine 03/10/2021 10:32 AM Encounter for Resul ts for this (CORONAVIRUS) BY CDT screening for other proc edure are in PCR viral diseases the results section. documented in this encounter Results Asymptomatic COVID-19 Virus (Coronavirus) by PCR Nasopharyngeal (03/10/2021 10:32 AM CDT) Analysis [facility] At [facility] Time Signature SARS CoV2 PCR Negative Negative 03/10/2021 [facility] 11:46 PM CDT LABORATORY Comment: NEGATIVE: SARS-CoV-2 (COVID-19) RNA not detected, presumed negative. Specimen Anatomical Location / Collection Method Collection Nitish e Received Time (Source) Laterality / Volume Swab NASOPHARYNGEAL Non-blood 03/10/2021 10:32 1 STRUCTURE / Unknown Collection / AM CDT 10:54 AM CDT Unknown Narrative [facility] - 03/10/2021 11:46 PM CDT Testing was performed using the Xpert Xpress SARS-CoV-2 Assay on the S[employer]ronXpert Instrument Systems. A dditional information about this [...] COVID-19. This test was validated by the [facility] Infectious Diseases Diagnostic Laboratory. This lab oratory is certified under the Clinical Laboratory Improvement Amen dments of 1987 (CLIA-88) as qualified to perform high complexity lab oratory testing. Mason Spence MD LAB - MICRO GENERAL ORDSunita ADAME Performing Organization Address City/State/ZIP Code Phon e Number [facility] [place] [address] Diag. Lab [address] [facility], Room [address]297 [facility] Infectious [place], [place] [phone] Diseases Diagnostic [phone], [facility] Lab (IDDL) [address] [facility], Room D297 documented in this encounter Visit Diagnoses Diagnosis Encounter for screening for other viral diseases documented in this encounter Care Teams Field Property Loss Specialist Relationship Specialty Start Date End Date Aung Almaguer PCP - General Family Practice 03/02/[address] [address] documented as of this encounter
--- OUTSIDE RECORDS SUMMARY | 2022-05-24 08:33 | XMS_ITS | Clinical Summary ---
:1950 Author Organization [facility] [place] [address] Care Team Providers Name Role Phone Mason Spence MD Unavailable [phone] Aileen Alarcon RN Unavailable Luis [place] MD Primary Care Provider Allergies Active Allergy Reactions Severity Noted Date Comments Simvastatin Myalgia 03/12/2021 Medications Medication Sig Dispensed Refills Start Date End Date Status lisinopril (PRINIVIL; Take 20 mg by 0 Active ZESTRIL) 20 mg tablet mouth once daily. allopurinol (ZYLOPRIM) Take 300 mg by 0 Active 300 mg tablet mouth once daily. sildenafil, Take 20-60 mg by 0 A ctive antihypertensive, mouth each time (REVATIO) 20 mg tablet if needed for Other (Specify) (prior to sexual activity). amLODIPine (NORVASC) 5 Take 5 mg by 0 Active mg tablet mouth once daily. Cimetidine (TAGAMET) Take 800 mg by 0 Active 800 mg tablet mouth once daily if needed (Heartburn). 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 Gout 02/23/2019 Erectile dysfunction 02/23/2019 Hypertension 02/23/2019 Hyperlipidemia 02/23/2019 Diverticulosis of colon 02/23/2019 Alcohol abuse 02/23/2019 Overview: 6 beers per day Family History Medical History Relation Name Comments Other Father of perforat ed stomach ulcer Cancer-breast Mother Relation Name Status Comments Father Mother Social History Tobacco Use Types Packs/Day Years Used Date Former Smoker Quit: 2006 Smokeless Tobacco: Never Used Alcohol Use Standard Drinks/Week Comments Yes 0 (1 standard drink = 0.6 oz pure alcoho l) up to 5-6 beers Alcohol Habits Answer Date Recorded How often do you have a drink containing alcohol? Not asked How many drinks containing alcohol do you have on a Not aske d typical day when you are drinking? How often do you have six or more drinks on one Not asked occasion? Comment: up to 5-6 beers 02/23/2019 Sex Assigned at Date Recorded Not on file Obstetrics History Last Filed Vital Signs Vital Sign Reading Time Taken Comments Blood Pressure 213/105 01/09/2022 11:20 AM CDT Pulse 74 01/09/2022 11:20 AM CDT Temperature 36.9 ??C (98.4 ??F) 04/29/2021 9:00 AM CDT Respiratory Rate 16 04/29/2021 9:00 AM CDT Oxygen Saturation 95% 04/29/2021 9:00 AM CDT Inhaled Oxygen Concentration - - Weight 96 kg (211 lb 9.6 oz) 01/09/2022 11:20 AM CDT Height 185.4 cm (6' 1) 04/26/2021 10:19 AM CDT Body Mass Index 27.92 04/26/2021 10:19 AM CDT Plan of Treatment Health Maintenance Due Date Last Done Comments Tdap 1959 Depression screening for age 12+ 1960 BMI (ht and wt on same day) for age 0803/19/1966 18+ Hepatitis C screening for age 18-79 1966 Tetanus booster 1968 Colonoscopy through age 75 1993 Lipids for age 45-75 1993 Zoster (shingles) series for age 50+ 1998 (1 of 2) Medicare Wellness for age 65+ 2013 Pneumococcal series for age 65+ (1 - 2013 PCV) COVID-19 vaccine series (4 - Booster 08/02/2021 06/07/2021, 10/12/2020, for Moderna series) 09/15/2020 Influenza for age 65+ 03/21/2022 AAA screening age 55-77 Completed 04/27/2021, 02/23/2019 Medical Devices Implanted Type Area Hydraulic Jack Mechanic Device Shelf Model / Identifier Expiration Serial / Date Lot Stent Biliary [id number] Advanixduodenal Bend Plst - [id number] [facility] [id number] / Implanted: Qty: 1 on 02/24/2019 by Gary Rivera MD at [facility] Gastroenterology / [id number] Results Not on filefrom Last 3 Months Insurance Payer Benefit Plan / Subscriber ID Effective Dates Phone Addre ss Type Group MEDICARE PART A MEDICARE PART A [id number] 2013-[employer]en ATTN: CLAIMS - HB USE ONLY HB ONLY t [address] [place] [address] BLUE CROSS MR BLUE CROSS [id number] 2018-Presen [address] [place], [place] [id number] Advance Directives Latest Code Status on File Code Status Date Activated Date Inactivated Comments Full Code 04/26/2021 7:31 PM 04/29/2021 2:03 PM Code Status Discussion: Discussed Full Code 02/23/2019 12:19 AM 02/28/2019 5:11 PM Care Teams Bobtailer Relationship Specialty Start Date End Date Luis [place], PCP - General Family Practice 04/17/[address] [place] [address] Jordy, Surgery - Urology 04/12/21 Mason Mcclure MD [address] [facility] [address] [place], [place] [id number] Aileen Alarcon, Cancer Nurse Coordinator Registered Nurse 04/12 RN [address] [id number]
--- OUTSIDE RECORDS SUMMARY | 2022-05-24 08:33 | XMS_ITS ---
:1950 Author Care Team Providers Name Role Phone [facility] OTHER [phone] Allergies None recorded. Medications Name Status Start Date Stop Date ? ? lisinopril 20 mg tablet Active ? Not avai lable Take 1 tablet every day by oral route. Problems Name Status Onset Date Source ? Hypertensive Disorder Active ? ? History of Cholecystectomy Active ? ? Procedures None recorded. Results Lab Results None recorded. Past Encounters None recorded. Social History None recorded. Vaccine List None recorded. Plan of Care Reminders Provider Appointments None recorded. ? ? Lab None recorded. ? ? Referral None recorded. ? ? Procedures None recorded. ? ? Surgeries None recorded. ? ? Imaging None recorded. ? ? Vitals None recorded.
[2022-05-24 13:04] LABS: Chloride* 106 mmol/L (96-114); Sodium* 140 mmol/L (135-149)
[2022-05-24 13:05] LABS: Potassium* 5.3 mmol/L (3.6-5.1)
[2022-05-24 13:07] LABS: Estimated Glomerular Filt Rate 79 ml/min
[2022-05-24 13:08] LABS: Blood Urea Nitrogen* 17 mg/dL (7-30); Calcium* 9.7 mg/dL (8.4-10.6); Carbon Dioxide* 27 mmol/L (20-32); Glucose* 103 mg/dL (60-115)
== END 2022-05-24 08:26 | disposition home or self-care (01) ==
PROVIDERS: PCP Family Medicine; Visit Provider Family Medicine
DX: I10 Essential (primary) hypertension (principal); E78.5 Hyperlipidemia, unspecified; Z13.29 Encounter for screening for other suspected endocrine disorder
CPT/HCPCS: 80048; 84443

== ENCOUNTER 2022-05-29 14:16 | Outpatient (RCR) | payer MEDICARE, SELFPAY ==
--- NOTE | 2022-05-29 16:00 | PT.OPE ---
PT [facility] Outpatient Eval PT [facility] Outpatient Eval Start: 05/29/22 14:35 Freq: Status: Active Protocol: Document 05/29/22 15:55 CJT (Rec: 05/29/22 15:59 CJT [id number]) E-signed By Eliud Bundy PT Physical Therapy Outpatient Evaluation Insurance Information Recert Due Date 07/05/22 Insurance Name Medicare B,Blue Cross/Blue Shield Medical Diagnosis M25.519 - pain in unspecified shoulder Treating Diagnosis M25.511, M25.512 - pain in B shoulders M25.611, M25.612 - stiffness in B shoulders Referring Luis Parker MD Subjective Subjective Fall of last year, pt was sawing limbs of trees. Was not able to lift his arm for about 3 months due to pain. Was evaluated by his PCP at the time. This year in March he fell twice while playing pickle ball, once on his L side and again on his R about 2 weeks later. Is onyl able to elevate his shoulders about 90 degrees. Is having some pins/needles into his L shoulder at times. Is having lots of achyness at night. Is now having some pain in to his L neck. Notices some stiffness in his neck often. Pain on L is present from cervical spine down to elbow. Posterior shoulder is most painful region. Points to lateral shoulder on R as source of pain. Was having some pain and stiffness into his R thumb as well. Pt leaving for [place] on 07/04/22. Pain Comments Moderate Date of Last Physician Visit 05/25/22 Current Work Status Retired Occupation Pickle ball player Preferred Name Nikolai Precautions Therapy Limitations/Systems Review Not Limited Objective Range of Motion Cervical ROM Extension - 50 Flexion - 45 R/L Side Bend - 21/18 R/L Rotation - 52/58 R Shoulder ROM Flexion/Abduction/IR/ER - 135/ 115/T12/80 L Shoulder ROM Flexion/Abduction/IR/ER - 116/ 82/L1/80 Strength Cervical Strength Extension - 5/5 Flexion - 4+/5 R/L Side Bend - 5/5 R/L Rotation - 5/5 R Shoulder Strength Flexion - 5/5 Abduction - 5/5 IR - 5/5 ER - 4+/5 Empty Can - 4+/5 L Shoulder Strength Flexion - 5/5 Abduction - 5/5 IR - 5/5 ER - 4+/5 Empty Can - 4+/5 Palpation Mildly tender with palpation to B shoulder and scapular mm Other/Pertinent Objective Spurling's Compression: negative Boyd's: negative Crossover: negative AC Compression: negative Nahid: negative Assessment Assessment/Impression Pt is a 72 year old male who presents to OP PT clinic with complaints of B shoulder pain. R shoulder has been bothersome for about a year after he was trimming some branches at home. Had pain the next day and was unable to lift his arm for several months. Recently he fell while playing pickleball in March; once on his R shoulder, and again on his L. Pt was still able to play pickle ball and has continued playing 4 times per week with minimal pain. His issue primarily is pain with rest/ sleeping and inability to elevate the arm. Pain does increase with elevation. Nikolai's posture is quite poor with significant kyphosis in thoracic spine and forward head and rounded shoulders. After massage and stretching today as well as scapular activation exercises, his posture seems to be temporarily improved. Testing does not indicate a tear in the RTC at this time although he does have some signs of impingement. I do believe he has some aspect of frozen shoulder present at this time as his shoulder ROM is quite poor. The nature of the pts condition was explained and all questions were answered to the pts satisfaction. Skilled PT services are medically necessary to address deficits and return patient to highest level of function. Recommend physical therapy sessions every other week for 4-6 weeks . Pt agrees with this plan. Printout of HEP was given for I completion and pt gives verbal understanding of each exercise. Primary Functional Limitations Lifting arm above head, sleeping Plan of Care Rehabilitation Potential Good Physical Therapy Goals STG - To be completed in 2-3 weeks: 1. Pt will demonstrate improved shoulder flexion and abduction by 15+ degrees so that they may reach for cans of soup on top shelf in pantry . 2. Pt will report reduction in shoulder pain by factor of 2 so that they may sleep without waking due to pain while shifting position in the night . LTG - To be completed in 4-6 weeks: 1. Pt to be I with HEP so that they may I manage progression of symptoms. 2. Pt will report ability to lay on R/L shoulder in bed without increase in pain so that they may sleep in preferred position to achieve better night's sleep. 3. Pt will demo full and pain free shoulder ROM and strength so that they may return to recreational exercise with their friends. Treatment Plan/Direct Interventions Heat,Joint Mobilization,Manual Therapy,Therapeutic Exercises Frequency/Duration every other week for 4-6 weeks Patient Will Be Discharged From Therapy Completion of LTG(s),Skills Plateau,Independent w/HEP, Independently Progressing Evaluation Billing Untimed Code Treatment Minutes 30 PT Eval No Charge No Complexity Low Certification Information Initial Certification Date 05/29/22 Ending Certification Date 07/05/22 Provider Signature Shows Agreement With POC & Medical Necessity Physician Signature & Date Requested Please Sign/Date Here Physician Comment/Change : Physician NPI Number #
== END 2022-08-20 11:45 | disposition home or self-care (01) ==
PROVIDERS: PCP Family Medicine; Visit Provider Family Medicine
DX: M25.519 Pain in unspecified shoulder (principal); Z51.89 Encounter for other specified aftercare
CPT/HCPCS: 97110; 97140; 97161

== ENCOUNTER 2024-02-02 14:46 | Outpatient (CLI) | payer MEDICARE, SELFPAY ==
--- OUTSIDE RECORDS SUMMARY | 2024-02-02 14:54 | XMS_ITS | Continuity of Care Document ---
Author Organization [facility], [facility] Address [address] [place] [address] Care Team Providers Care Acetaldehyde Converter Operator Name Role Phone OMID CAGLE Primary Care Provider Assessment Encounter Date Assessment Date Assessment LastModified by Organization Details LastModified Time 12/04/2023 12/04/2023 73M s/p RALP + PLND on 03/13/21 for pT2N1 Jolanta 3+4=7 prostate cancer (-SMS, -SVI, 07/27 LN). 1) Prostate cancer - PSA rising - discussed starting ADT or RT vs observation, prefers continued observation; he hopes to avoid pelvic radiation if possible - PSMA-PET to evaluate for site of recurrence - check PSA in 3 months 2) Erectile dysfunction - ICI per Dr Vale dominguez Not available 12/04/2023 15:04:06 Plan of Treatment Reminders Order Date Submit Date Provider Last Modified By Organization Details Last Modified Time Details Appointments LAB BLOOD DRAW 2023 01:50P M [facility] Not available Not available Not available ESTABLISH ED 10 2023 02:10P M Mason hong MD, PHD Not available Not available Not available Lab PSA, serum or plasma 2023 024 [email or web address] [facility], [address], [place], [address], 12/04/2023 14:31:14 Referral None recorded. Procedures None recorded. Surgeries None recorded. Imaging PET-CT, skull base to mid-thigh scan - PSMA scan; Eyes to thighs 05/2023 MELLY [place] [facility], [address], [place], [address], 12/11/2023 23:57:35 Medication Orders None recorded. Patient TargetsNo targets recorded. Patient InstructionsNo instructions recorded. Reason for Referral Referring Physician: Marc ewing, Urology, Encounter Date: 11/15/2020 Urologist Referral for Carci noma of prostate Referring Physician: Marc Adams, Urology, Encounter Date: 12/12/2020 Interventional Radiologist R walter for Lymphocele aspiration and drain placement of right and left pelvic lymphoceles Referring Physician: Mason Plascencia, Urology, Encounter Date: 04/10/2021 Results Created Date Observation Date Name Description Value Unit Range Abnormal Flag LastModifiedBy Organization Detail LastModifiedTime 12/04/19 24 12/04/2023 PSA, serum or plasm a PSA 0.43ng /ml 0-4.0 NG/mL Not Available [facility] [address], [place], [address], 11/20/2023 17:04:49 12/11/19 24 12/11/2023 PET-C T, skull base to mid-t high scan EXAM: PET CT PROSTA TE PSMA INITIA L LOCATI ON: [employer] [place] quotation checker DATE: INDICA TION: Subseq uent treatm ent planni ng and restag ing for malign ant neopla sm of the prosta te status post prosta tectom y in February 2021 with elevat ed PSA compat ible with bioche mical recurr ence. COMPAR PIERRE: CT the abdome n pelvis dated . TECHNI QUE: 60 minute s post intrav enous admini strati on of 9.9 mCi F-18 Pifluf olasta t, PET imagin g was perfor med from the skull vertex to mid thighs utiliz ing attenu ation correc tion with concur rent axial CT and PET/CT image fusion . Dose reduct ion techni ques were used. 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 Mild esopha gitis. Radiot racer positi ve bilate ral hilar and subcar inal lymph nodes typica l of granul omatou s inflam matory change . Focal radiot racer uptake in the anteri or right fourth rib withou t anatom ic correl ate sugges ting sequel a of posttr aumati c change . Mildly radiot racer positi ve airspa ce opacit y sugges ting an inflam matory proces s. The remain ing radiot racer distri bution is physio logic from the skull vertex to midthi gh. Mild senesc ent intrac ranial change s. Mild parana stanislaw sinus mucosa l thicke constantino. Mild caroti d artery bifurc ation calcif icatio n. Azygou s lobe/f issure . Mild velázquez ry artery calciu m. Cholec ystect ozzie with expect ed pneumo bilia. Left adrena l gland adenom a. Sigmoi d divert iculos is. Prosta tectom y. Pelvic phlebo liths. Multil evel degene rative change s of the spine. IMPRES SUMIT: No radiot racer positi ve diseas e This report was electr onical ly interp reted by: DR. CHARLENE LAINEZ [facility] [address], [place], [address], 12/11/2023 23:57:35 12/11/19 24 12/11/2023 PET-C T, skull base to mid-t high scan No observ ation record ed. [facility] [address], [place], [address], 12/18/2023 10:50:13 Result Notes None recorded. Problems Name Status Onset Date Resolution Date Notes Provider Name and Address Organization Details Recorded Time Malignant tumor of prostate Active 01/05/20 21 Mason arora MD, PHD [address], [place], [address], [facility] 01/04/2021 14:03:56 Lymphocele Active 04/06/20 21 Mason arora MD, PHD [address] [place] [address], [phone], [facility] 04/06/2021 13:14:42 Secondary erectile dysfunction Active 07/11/20 21 Mason arora MD, PHD [address] [place] [address], [phone], [facility] 07/11/2021 16:04:45 Problem Notes None recorded. Procedures Surgical History Date Name Laterality Status Provider Name and Address Organization Details Recorded Time 12/04/19 24 COMPLEX VISIT completed Mason arora MD, PHD [address] [place] [address], [phone], [facility] 12/04/2023 15:00:17 12/04/19 24 FARM OPERATIONS MANAGER/blood draw completed Bettie love [facility] 11/20/2023 17:04:48 06/05/20 23 FARM OPERATIONS MANAGER/blood draw completed Mason arora MD, PHD [address] [place] [address], [phone], [facility] 06/05/2023 11:55:34 03/21/20 23 FARM OPERATIONS MANAGER/blood draw completed Betty love [facility] 03/21/2023 11:13:12 11/22/19 23 Blood Draw/FARM OPERATIONS MANAGER/PSA RESULTS completed Mason arora MD, PHD [address] [place] [address], [phone], [facility] 11/21/2022 11:06:12 07/04/20 22 Blood Draw/FARM OPERATIONS MANAGER/PSA RESULTS completed Mason arora MD, PHD [address] [place] [address], [phone], [facility] 07/04/2022 14:51:46 03/06/20 22 Blood Draw/FARM OPERATIONS MANAGER/PSA RESULTS completed Betty love [facility] 03/06/2022 11:16:59 11/01/19 22 Blood Draw/FARM OPERATIONS MANAGER/PSA RESULTS completed Mason arora MD, PHD [address], [place], [address], [facility] 10/31/2021 10:40:14 07/11/20 21 PSA RESULTS completed Mason arora MD, PHD [address], [place], [address], [facility] 07/11/2021 15:41:42 05/04/20 21 Blood Draw/FARM OPERATIONS MANAGER/PSA RESULTS completed Mason arora MD, PHD [address] [place] [address],[address], [place], [address], [facility] 05/04/2021 12:13:23 04/13/20 21 Cardoza Catheter Removal completed Sandra love, [facility] 04/13/2021 12:42:32 04/06/20 21 Bladder [facility], [facility] 04/06/2021 13:36:26 03/27/20 21 Cardoza Catheter Removal completed Betty love, [facility] 03/27/2021 13:48:25 10/28/19 21 Prostate Biopsy Procedure completed Marc Adams MD [address], [place], [address], [facility] 10/27/2020 18:02:22 10/28/19 21 Rocephin/Ceftriaxon e completed Bettina love, [facility] 10/27/2020 13:53:23 10/28/19 21 URONAV completed Bettina love, [facility] 10/27/2020 10:58:30 04/05/20 20 Bladder Scan completed Rachael love, [facility] 04/05/2020 12:21:51 08/07/19 19 colonoscopy completed Rachael love, [facility] 04/27/2021 11:32:12 Vasectomy completed Mason arora MD, PHD [address], [place], [address], [facility] 01/04/2021 14:04:14 cholecystectomy completed Mason arora MD, PHD [address] [place] [address],[address], [place], [address], [facility] 01/04/2021 14:04:22 anastomosis of cystic duct completed Mason arora MD, PHD [address] [place] [address],[address], [place], [address], [facility] 01/04/2021 14:05:00 Imaging Results None recorded. Procedure Notes None recorded. Medical Equipment None Reported. Allergies No known drug allergies Medications Name Sig Start Date Stop Date Status Note LastModified by Organization Details LastModified Time Trimix 30 papaverine/ 1 phentolamin e/10 PGE-1 inject 10 units intracave rnosal as directed PRN for sexual activity. titrate by 5 units until desired response. 2021 active Not Available Not Available Not Avai lable Trimix 30 papaverine/ 1 phentolamin e/10 PGE-1 inject 10 units intracave rnosal as directed PRN for sexual activity. titrate by 5 units until desired response. 2022 active Not Available Not Available Not Avai lable Trimix 30 papaverine/ 1 phentolamin e/10 PGE-1 inject 10 units intracave rnosal as directed PRN for sexual activity. titrate by 5 units until desired response. 2022 active Not Available Not Available Not Avai lable lisinopril 20 mg tablet TAKE 1 TABLET BY MOUTH ONCE DAILY active Not Available Not Available No t Available amlodipine 5 mg tablet TAKE 1 TABLET BY MOUTH ONCE DAILY active Not Available Not Available No t Available ciprofloxac in 500 mg tablet TAKE 1 TABLET BY MOUTH EVERY 12 HOURS FOR 3 DAYS 07/11 completed Not Available Not Available Not Available allopurinol 300 mg tablet TAKE 1 TABLET BY MOUTH ONCE DAILY active Not Available Not Available No t Available clobetasol 0.05 % topical ointment active Not Available Not Available Not Available amoxicillin 875 mg-potassiu m clavulanate 125 mg tablet 07/11 completed Not Available Not Available Not Available oxycodone 5 mg tablet 07/11 completed Not Available Not Available Not Available tadalafil 5 mg tablet TAKE 4 TABLETS (20 MG) BY MOUTH ONE DAY PER WEEK 1 HOUR PRIOR TO SEXUAL ACTIVITY 03/06 completed Not Available Not Available Not Available sildenafil (pulmonary hypertensio n) 20 mg tablet TAKE 4 TABLETS BY MOUTH ONCE DAILY NEEDED PRIOR TO SEXUAL ACTIVITY 10/31 completed Not Available Not Available Not Available Shingrix (PF) 50 mcg/0.5 mL intramuscul ar suspension, kit 10/27 completed Not Available Not Available Not Available Vitals Date Recorded Body height Body mass index (BMI) Body weight Provider Name and Address Organization Details Last Updated DateTime 12/04/2023 185.42 cm 26.3 kg/m2 06521.88 g Mason torres MD, PHD [address],[facility] [address], [place], [address] - [facility] 12/04/2023 14:45:51 Social History Question Answer Notes LastModified by Organizat ion Details LastModified Time Tobacco Smoking Status [facility] 12:12:07 What Is Your Level Of Alcohol Consumption? Moderate Information not available 04/05/2020 What Is Your Level Of Caffeine Consumption? Moderate Information not available 04/05/2020 How Much Tobacco Do You Chew? None Information not available 10/27/2020 Do You Or Have You Ever Used E-cigarettes Or Vape? Never Used Electronic Cigarettes Information not available 10/27/2020 When Did You Quit Smoking? 14+yearssincela muna [email or web address] Information not available 10/27/2020 Ethnicity Not / [email or web address] Information not available 10/27/2020 Preferred Language Azeri [email or web address] Information not available 10/27/2020 Marital Status Informatio n not available 04/05/2020 What Was The Date Of Your Most Recent Tobacco Screening? 12/04/2023 [email or web address] Information not available 12/04/2023 How Much Tobacco Do You Smoke? 1 PPD Information not available 04/05/2020 How Many Years Have You Smoked Tobacco? 20 Information not available 04/05/2020 Sex: Unknown Functional Status None recorded. Mental Status None recorded. Family History Relationship Description Onset Age of this Age Resolved Age Notes Mother Family history of malignant neoplasm Father Family history of Hypertension Medical History Condition Response Sexually Transmitted Infection N Diabetes N Other N Bleeding Disorder N High Blood Pressure Y Kidney Stones N High Cholesterol Y GERD/Acid Reflux Y Heart Disease N Cancer Y Depression N Lung Disease N Immunizations Vaccine Type Date Status Provider Name and Address Organization Details Recorded Time Pneumococcal conjugate PCV 13 03/23/2018 completed Anna love [facility] 03/27/2023 15:22:48 Influenza, adjuvanted, trivalent, PF 07/05/2019 completed Anna love [facility] 03/27/2023 15:22:47 zoster recombinant 09/30/2019 completed Anna love [facility] 03/27/2023 15:22:48 zoster recombinant 07/05/2019 completed Anna love [facility] 03/27/2023 15:22:48 Influenza, adjuvanted, quadrivalent, PF 05/18/2021 completed Anna love [facility] 03/27/2023 15:22:48 COVID-19, mRNA, LNP-S, PF, 100 mcg/0.5mL dose or 50 mcg/0.25mL dose 09/15/2020 completed Anna olve [facility] 03/27/2023 15:22:48 COVID-19, mRNA, LNP-S, PF, 100 mcg/0.5mL dose or 50 mcg/0.25mL dose 10/12/2020 completed Anna love [facility] 03/27/2023 15:22:48 COVID-19, mRNA, LNP-S, PF, 100 mcg/0.5mL dose or 50 mcg/0.25mL dose 06/07/2021 completed Anna love [facility] 03/27/2023 15:22:48 pneumococcal polysaccharide PPV23 12/29/2013 [facility] 15:22:48 influenza, unspecified formulation 04/11/2009 completed Anna love [facility] 03/27/2023 15:22:48 influenza, unspecified formulation 04/20/2007 completed Anna Romeo LYNN love [facility] 03/27/2023 15:22:48 influenza, unspecified formulation 05/05/2008 completed Anna Calixtokevin ivan [facility] 03/27/2023 15:22:48 influenza, unspecified formulation 05/21/2006 completed Anna Calixtokevin ivan [facility] 03/27/2023 15:22:48 Tdap 07/28/2007 [facility] 03/27/2023 15:22:48 Tdap 03/06/2017 [facility]2023 15:22:48 Pneumococcal conjugate PCV 13 02/07/2016 [facility] 03/27/2023 15:22:48 zoster live 04/14/2013 [facility] 03/27/2023 15:22:48 Influenza, high-dose, trivalent, PF 05/16/2018 completed Anna Ousmane ivan [facility] 03/27/2023 15:22:48 Influenza, split virus, trivalent, PF 04/09/2013 [facility] 03/27/2023 15:22:48 Influenza, split virus, quadrivalent, PF 05/16/2020 completed Anna Calixtokevin ivan [facility] 03/27/2023 15:22:48 Past Encounters Encounter ID Performer Location Encounter Start Date Encounter Closed Date Diagnosis/Indication Diagnosis SNOMED-CT Code [id number] Mason raora MD, PHD [facility] [address] [phone] 12/04/2023 13:52:49 12/09/2023 10:29:43 Malignant tumor of prostate 978685101 Secondary erectile dysfunction 771942536 Health Concerns Section Related Observation LastModified by Organization Detai ls LastModified Time None Recorded Concern Status LastModified by Organization Details LastModified Time None Recorded Payers Encounter Date Sequence Insurance Name Policy Number Policy Freitas Covered Member ID Freitas Member ID Guarantor Name 12/04/2023 1 [place] (MEDICARE [place]ACEMENT PPO) [id number] Kyree Webster [id number] Kyree Webster Notes Date Note Type Note Provider Name and Address Organization Details Recorded Time 12/04/2023 text/html HPI Notes: 73M s /p RALP + PLND on 03/13/21 for pT2N1 Jolanta 3+4=7 prostate cancer (-SMS, -SVI, 1/ LN). Voiding with strong stream. Minimal leakage now. Not wearing pads. Tadalafil not working; using ICI per Dr Collazo. 04/09/21 CT A/P: interval increase in b/l lymphoceles 04/19/21 CT-guided drain placement to b/l fluid collections 04/26-04/29: Admission at [facility] with fevers; Pseudomonas on culture of drain fluid; treated with Augmentin and cipro x14 days per ID 04/27/21 CT A/P: no residual fluid collection on right; minimal residual fluid at left pelvic side wall; right drain was removed UF: 07/25 Date of complete continence: 04/20/21 EF: 5/5; good with ICI Pre-op ED: 2-09/22 PSA Results 05/04/21 <0.04 07/11/21 <0.04 10/31/21 <0.04 03/06/22 0.04 07/04/22 0.10 11/21/22: 0.20 03/21/23: 0.16 06/05/23: 0.17 12/04/23: 0.43 Mason Spence MD, PHD [address], [place], [address], [facility] 12/04/2023 15:04:13
--- OUTSIDE RECORDS SUMMARY | 2024-02-02 14:54 | XMS_ITS | Clinical Summary ---
Author Organization [facility] Address [address] [place] [address] Care Team Providers Care Measurement Operator Name Role Phone Aung Almaguer MD Primary Care Provider [phone] Allergies Active Allergy Reactions Criticality Noted Date Comments Simvastatin Muscle Pain (Myalgia) 03/12/2021 Medications Medication Sig Dispensed Refills Start Date End Date Status lisinopril (PRINIVIL/ZESTRIL) 20 MG tablet Take 20 mg by mouth daily Active allopurinol (ZYLOPRIM) 300 MG tablet Take 300 mg by mouth daily Active amLODIPine (NORVASC) 5 MG tablet Take 5 mg by mouth daily Active SILDENAFIL CITRATE PO Take 80 mg by mouth daily as needed Active cimetidine (TAGAMET) 800 MG tablet Take 800 mg by mouth daily as needed Active clobetasol (TEMOVATE) 0.05 % external ointment Apply topically 2 times daily Active SENNA-docusate sodium (SENNA S) 8.6-50 MG tabletIndications:Pr ostate cancer (H) Take 1-2 tablets by mouth 2 times daily as needed (constipation) 30 tablet 03/13/2021 Active oxyCODONE (ROXICODONE) 5 MG tabletIndications:Pr ostate cancer (H) Take 1 tablet (5 mg) by mouth every 6 hours as needed for pain 12 tablet 03/15/2021 Active Active Problems Problem Noted Date Diagnosed Date Prostate cancer 03/13/2021 Social History Tobacco Use Types Packs/Day Years Used Date Smoking Tobacco: Former Cigarettes Q uit: 2006 Smokeless Tobacco: Never Alcohol Use Standard Drinks/Week Comments Yes 0 (1 standard drink = 0.6 oz pur e alcohol) one case of beer per week Adolescent Education Answer Date Record ed Getting School Help Needed Not on file 05/07 Sex and Gender Information Value Date Recorded Sex Assigned at Not on file Gender Identity Not on file Sexual Orientation Not on file Last Filed Vital Signs Vital Sign Reading Time Taken Comments Blood Pressure 144/72 03/15/2021 7:38 AM CDT Pulse 72 03/15/2021 7:38 AM CDT Temperature 35.8 ??C (96.5 ??F) 03/15/2021 7:38 AM CD T Respiratory Rate 16 03/15/2021 12:00 PM CDT [...] OF HM ORDERS 1948 CT COLONOGRAPHY 1948 FIT 1948 FLEX SIG 1948 sDNA (Cologuard) 1948 HEPATITIS C SCREENING 1966 LIPID 1988 LUNG CANCER SCREENING 1998 RSV VACCINE ( & 60+) (1 - 1-dose 60+ series) 2008 FALL RISK ASSESSMENT 2013 MEDICARE ANNUAL WELLNESS VISIT 2013 COVID-19 Vaccine ( season) 2023 05/03/2022, 06/07/2021, 10/12/2020, Additional history exists PHQ-2 (once per calendar year) 2023 GLUCOSE 03/14/2024 03/14/2021, 08/0 11/2020, 02/23/2019 INFLUENZA VACCINE (#1) 2024 , 05/18/2021, 05/18/2021, Additional history exists DTAP/TDAP/TD IMMUNIZATION (3 - Td or Tdap) 03/06/2027 03/06/2017, 07/28/2007 COLONOSCOPY 08/06/2028 08/06/2018 COLORECTAL CANCER SCREENING 08/06/2028 Pneumococcal Vaccine: 65+ Years Completed 03/23/2018, 02/07/2016, 12/29/2013 ZOSTER IMMUNIZATION Completed 09/30/2019, 07/05/2019, 04/14/2013 HPV IMMUNIZATION Aged Out No longer e ligible based on patient's age to complete this topic IPV IMMUNIZATION Aged Out No longer e ligible based on patient's age to complete this topic MENINGITIS IMMUNIZATION Aged Out No l onger eligible based on patient's age to complete this topic RSV MONOCLONAL ANTIBODY Aged Out No l onger eligible based on patient's age to complete this topic Procedures Procedure Name Priority Date/Time Associated Diagnosis Comments GLUCOSE BY METER Routine 03/14/2021 6:53 AM CDT from Last 3 Months or Most Recently Relevant to Health Maintenance Results * Glucose by meter (03/14/2021 6:53 AM CDT) GLUCOSE BY METER POCT 99 70 - 99 mg/dL 03/14/2021 6:59 AM CDT LABORATORY POC Blood BLOOD SPECIMEN / Unknown 03/14/2021 6:53 AM CDT 03/14/2021 6:59 AM CDT Mason Spence MD LAB - BEAK ER POCT LABORATORY POC [facility] [address], [address] [place] [address], [facility] [phone] from Last 3 Months or Most Recently Relevant to Health Maintenance [place] Directives For more information, please contact: [phone] * Full Code (Latest Code Status on File) Date Activated Date Inactivated Comments 03/13/2021 7:48 PM 03/15/2021 3:34 PM All basic an d advanced life-sustaining interventions are performed as appropriate Question Answer Comments Code status determined by: Unable to dis cuss and no AD/POLST on file; continue PREVIOUSLY ORDERED code status Care Teams Measurement Operator Relationship Specialty Start Date End Date Aung Almaguer MD PCP - General Family Practice 03/02/19
--- OUTSIDE RECORDS SUMMARY | 2024-02-02 14:54 | XMS_ITS | Referral Summary ---
Author Organization [facility] Address [address] [place] [address] Care Team Providers Care Slots Manager Name Role Phone Aung Almaguer MD Primary Care Provider [phone] Allergies Active Allergy Reactions Criticality Noted Date [...] 03/13/2021 10:24 AM CDT Plan of Treatment Not on file Procedures Procedure Name Priority Date/Time Associated Diagnosis [...] LAB - BEAK ER POCT LABORATORY POC [facility] Acute Care Lab [address], [address] [place] [address], [place] [phone] from Last 3 Months or Most Recently Relevant to Health Maintenance Advance Directives For more information, please contact: [phone] * Full Code (Latest Code Status on File) Date Activated Date Inactivated Comments 03/13/2021 7:48 PM 03/15/2021 3:34 PM All basic an d advanced life-sustaining interventions are performed as appropriate Question Answer Comments Code status determined by: Unable to dis cuss and no AD/POLST on file; continue PREVIOUSLY ORDERED code status Care Teams Slots Manager Relationship Specialty Start Date End Date Aung Almaguer MD PCP - General Family Practice 03/02/19
--- OUTSIDE RECORDS SUMMARY | 2024-02-02 14:54 | XMS_ITS | Clinical Summary ---
Author Organization [facility] Address [place], [place] [address] Care Team Providers Care Epic Specialist Name Role Phone Mason Spence MD Unavailable + Luis Washington MD Primary Care Provider Allergies Active Allergy Reactions Criticality Noted Date Comments Simvastatin Myalgia 03/12/2021 Medications Medication Sig Dispensed Refills Start Date End Date Status lisinopril (PRINIVIL; ZESTRIL) 20 mg tablet Take 20 mg by mouth once daily. Active allopurinol (ZYLOPRIM) 300 mg tablet Take 300 mg by mouth once daily. Active sildenafil, antihypertensive, (REVATIO) 20 mg tablet Take 20-60 mg by mouth each time if needed for Other (Specify) (prior to sexual activity). Active amLODIPine (NORVASC) 5 mg tablet Take 5 mg by mouth once daily. Active Cimetidine (TAGAMET) 800 mg tablet Take 800 mg by mouth once daily if needed (Heartburn). 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 Gout 02/23/2019 Erectile dysfunction 02/23/2019 Hypertension 02/23/2019 Hyperlipidemia 02/23/2019 Diverticulosis of colon 02/23/2019 Alcohol abuse 02/23/2019 Overview: 6 beers per day Family History Medical History Relation Name Comments Other Father of perfora kaiden stomach ulcer Cancer-breast Mother Relation Name Status Comments Father Mother Social History Tobacco Use Types Packs/Day Years Used Date Smoking Tobacco: Former Cigarettes Q uit: 2006 Smokeless Tobacco: Never Alcohol Use Standard Drinks/Week Comments Yes 0 (1 standard drink = 0.6 oz pur e alcohol) up to 5-6 beers Sex and Gender Information Value Date Recorded Sex Assigned at Not on file Gender Identity Not on file Sexual Orientation Not on file Obstetrics History Last Filed Vital Signs Vital Sign Reading Time Taken Comments Blood Pressure 213/105 01/09/2022 11:20 AM CDT Pulse 74 01/09/2022 11:20 AM CDT Temperature 36.9 ??C (98.4 ??F) 04/29/2021 9:00 AM CD T Respiratory Rate 16 04/29/2021 9:00 AM CDT [...] and wt on same day) for age 18+ 1966 Hepatitis C screening for age 18-79 1966 Tetanus booster 1968 Colonoscopy through age 75 1993 Lipids for age 45-75 1993 Zoster (shingles) series for age 50+ (1 of 2) 1998 Medicare Wellness for age 65+ 2013 Pneumococcal series for age 65+ (1 of 1 - PCV) 2013 COVID-19 vaccine series () 03/21/2023 06/07/2021, 10/12/2020, 09/15/2020 Influenza for age 65+ 03/21/2024 Medical Devices Implanted Type Area Clinical Document Improvement Educator Device Identifier Shelf Expiration Date Model / Serial / Lot Stent Biliary [id number] Advanixduodenal Bend Plst - [id number] Implanted:Qty: 1 on 02/24/2019 by Gary Rivera MD at [facility] Gastroenterology [id number] # / / [id number] Advance Directives * Full Code (Latest Code Status on File) Date Activated Date Inactivated Comments 04/26/2021 7:31 PM 04/29/2021 2:03 PM Question Answer Comments Code Status Discussion: Discussed * Full Code Date Activated Date Inactivated Comments 02/23/2019 12:19 AM 02/28/2019 5:11 PM Care Teams Epic Specialist Relationship Specialty Start Date End Date Luis Washington MD [address] [place] [id number] PCP - General Family Practice 04/17/21 Mason Spence MD [address] [place] [id number] Surgery - Urology 04/12/21
== END 2024-02-02 14:47 | disposition home or self-care (01) ==
PROVIDERS: PCP Family Medicine; Visit Provider Family Medicine
DX: I10 Essential (primary) hypertension (principal); E78.5 Hyperlipidemia, unspecified; M10.9 Gout, unspecified
CPT/HCPCS: 80053; 84443; 84550

== ENCOUNTER 2024-04-27 08:31 | Outpatient (CLI) | payer MEDICARE, SELFPAY ==
--- OUTSIDE RECORDS SUMMARY | 2024-04-27 08:33 | XMS_ITS | Data Portability ---
Author Organization [place] [facility] Address [address] [place] [address] Care Team Providers Care Tellers Supervisor Name Role Phone OMID CAGLE Primary Care Provider [phone] Assessment Encounter Date Assessment Date Assessment LastModified by Organization Details LastModified Time 03/21/2023 03/21/2023 73M s/p RALP + PLND on 03/13/21 for pT2N1 Jolanta 3+4=7 prostate cancer (-SMS, -SVI, 1/ LN). 1) Prostate cancer - PSA rising, slow doubling time - discussed starting ADT vs observation, prefers observation for now - f/u 3 months with PSA; if still rising >1 will get PSMA-PET - consider SBRT vs ADT pending imaging findings at that time 2) Lymphoceles - resolved, drains removed 3) Erectile dysfunction - ICI per Dr Vale dominguez Not available 03/21/2023 12:10:35 03/27/2023 03/27/2023 73M s/p RALP + PLND on 03/13/21 for pT2N1 [place] 3+4=7 prostate cancer (-SMS, -SVI, 1/7 LN). [email or web address] Not available 03/27/2023 10:49:54 06/05/2023 06/05/2023 73M s/p RALP + PLND on 03/13/21 for pT2N1 Jolanta 3+4=7 prostate cancer (-SMS, -SVI, 1/7 LN). 1) Prostate cancer - PSA rising, slow doubling time - discussed starting ADT or RT vs observation, prefers continued observation; he hopes to avoid pelvic radiation if possible - f/u 6 months with PSA (After returns from [place]); if rises >1 or chnage in PSADT will get PSMA-PET 2) Erectile dysfunction - ICI per Dr Vale dominguez Not available 06/05/2023 12:30:14 12/04/2023 12/04/2023 73M s/p RALP + PLND on 03/13/21 for pT2N1 Jolanta 3+4=7 prostate cancer (-SMS, -SVI, 1/7 LN). 1) Prostate cancer - PSA rising - discussed starting ADT or RT vs observation, prefers continued observation; he hopes to avoid pelvic radiation if possible - PSMA-PET to evaluate for site of recurrence - check PSA in 3 months 2) Erectile dysfunction - ICI per Dr Vale dominguez Not available 12/04/2023 15:04:06 03/25/2024 03/25/2024 74M s/p RALP + PLND on 03/13/21 for pT2N1 Jolanta 3+4=7 prostate cancer (-SMS, -SVI, 1/7 LN). 1) Prostate cancer - PSA rising - discussed starting ADT or RT vs observation, prefers continued observation; he hopes to avoid pelvic radiation if possible - f/u in 6 months with PSA, will repeat PSMA-PET at that time as PSA will be >2 2) Erectile dysfunction - ICI per Dr Vale dominguez Not available 03/25/2024 15:50:01 Plan of Treatment Reminders Order Date Submit Date Provider Last Modified By Organization Details Last Modified Time Details Appointments None recorde d. Lab PSA, serum or plasma 2022 023 [email or web address] [facility], [address] [place], [address], 3 11:13:31 PSA, serum or plasma 2022 023 [email or web address] [facility], [address], [place], [address], 12:04:19 PSA, serum or plasma 2023 024 [email or web address] [facility], [address], [place], [address], 4 14:31:14 PSA, serum or plasma 2023 024 [email or web address] [facility], [address], [place], [address], 4 15:08:12 Referral None recorde d. Procedures None recorde d. Surgeries None recorde d. Imaging PET-CT, skull base to mid-thi gh scan - PSMA scan; Eyes to thighs 2023 024 [facility], [address], [place], [address], 4 23:57:35 Medication Orders Trimix 30 papaver ine/1 phentol amine/1 0 PGE-1 2022 023 [facility], [address] [facility] [address], [place], [place], [id number], 3 15:52:48 Patient TargetsNo targets recorded. Patient InstructionsNo instructions recorded. Reason for Referral Referring Physician: Marc ewing, Urology, Encounter Date: 11/15/2020 Urologist Referral for Carci noma of prostate Referring Physician: Marc Adams, Urology, Encounter Date: 12/12/2020 Interventional Radiologist Rahul watson for Lymphocele aspiration and drain placement of right and left pelvic lymphoceles Referring Physician: Arthur Plascencia, Urology, Encounter Date: 04/10/2021 Results Created Date Observation Date Name Description Value Unit Range Abnormal Flag Note LastModifiedBy Organization Detail LastModifiedTime 03/21/2003/21/2023 PSA, serum or plasm a PSA 0.16 ng/ml 0-4.0 Not Available [facility] [address], [place], [address], 03/21/2023 11:13:16 06/05/20 23 06/05/2023 PSA, serum or plasm a PSA 0.17 ng/mL 0-4.0 Not Available [facility] [address], [place], [address], 06/05/2023 11:19:32 12/04/19 24 12/04/2023 PSA, serum or plasm a PSA 0.43ng /ml 0-4.0 NG/mL Not Available [facility] [address], [place], [address], 11/20/2023 17:04:49 03/25/20 24 03/25/2024 PSA, serum or plasm a PSA 1.1 ng/mL 0-4.0 NG/mL Not Available [facility] [address], [place], [address], 03/24/2024 15:11:50 12/11/19 24 12/11/2023 PET-C T, skull base to mid-t high scan EXAM: PET CT PROSTA TE PSMA INITIA L [place]AT[place]: [facility] [place] DATE: 024 INDICA TION: Subseq uent treatm ent planni ng and restag ing for malign ant neopla sm of the prosta te status post prosta tectom y in February 2021 with elevat ed PSA compat ible with bioche mical recurr ence. COMPAR PIERRE: CT the abdome n pelvis dated 021. TECHNI QUE: 60 minute s post intrav [...] ly interp reted by: DR. CHARLENE LAINEZ [email or web address] [facility] [address], [place], [address], 04/17/2024 20:59:50 12/11/19 24 12/11/2023 PET-C T, skull base to mid-t high scan No observ ation record ed. MELLY [facility] [address], [place], [address], 12/18/2023 10:50:13 Result Notes Documentation Provider Name and Address Organization Details Recorded Time Pet-ct, Skull Base To Mid-thigh Scan : EXAM: PET CT PROSTATE PSMA INITIAL LOCATION: [facility] DATE: 12/11/2023 INDICATION: Subsequent treatment planning and restaging for malignant neoplasm of the prostate status post prostatectomy in February 2021 with elevated PSA compatible with biochemical recurrence. COMPARISON: CT the abdomen pelvis dated 04/27/2021. TECHNIQUE: 60 minutes post intravenous administration of 9.9 mCi F-18 Piflufolastat, PET imaging was performed from the skull vertex to mid thighs utilizing attenuation correction with concurrent axial CT and PET/CT image fusion. Dose reduction techniques were used. FINDINGS: Left greater than right celiac ganglion activation. Mild esophagitis. Radiotracer positive bilateral hilar and subcarinal lymph nodes typical of granulomatous inflammatory change. Focal radiotracer uptake in the anterior right fourth rib without anatomic correlate suggesting sequela of posttraumatic change. Mildly radiotracer positive airspace opacity suggesting an inflammatory process. The remaining radiotracer distribution is physiologic from the skull vertex to midthigh. Mild senescent intracranial changes. Mild paranasal sinus mucosal thickening. Mild carotid artery bifurcation calcification. Azygous lobe/fissure. Mild coronary artery calcium. Cholecystectomy with expected pneumobilia. Left adrenal gland adenoma. Sigmoid diverticulosis. Prostatectomy. Pelvic phleboliths. Multilevel degenerative changes of the spine. IMPRESSION: No radiotracer positive disease This report was electronically interpreted by: DR. ARTHUR Obregon [facility] 04/17/2024 20:59:50 Problems Name Problem SNOMED Code Status Onset Date Resolution Date Notes Provider Name and Address Organization Details Recorded Time Malignant tumor of prostate 646531428 Active 2020 Arthur hong MD, PHD [address] [place], [place] [address] [address], [address], [facility] 1 14:03:56 Lymphocele 343379446 Active 2020 Arthur hong MD, PHD [address] [place], [place] [address] [place] [place] [address], [address], [facility] 1 13:14:42 Secondary erectile dysfunction 749599637 Active 2020 Arthur hong MD, PHD [address] [place] [address],[address] [place] [address], [address], [facility] 1 16:04:45 Problem Notes None recorded. Procedures Surgical History Date Name Laterality Status Provider Name and Address Organization Details Recorded Time 03/25/20 24 COMPLEX VISIT completed Arthur arora MD, PHD [address] [place] [address],[address], [place], [address], [facility] 03/25/2024 15:50:14 03/25/20 24 ENTERPRISE MANAGER/blood draw completed Betty Marrufoo [facility] 03/24/2024 15:11:52 12/04/19 24 COMPLEX VISIT completed Arthur arora MD, PHD [address] [place] [address],[facility] [address], [place], [address], [facility] 12/04/2023 15:00:17 12/04/19 24 ENTERPRISE MANAGER/blood draw completed Bettie Michele [facility] 11/20/2023 17:04:48 06/05/20 23 ENTERPRISE MANAGER/blood draw completed Arthur arora MD, PHD [address] [place] [address], [place], [address], [facility] 06/05/2023 11:55:34 03/21/20 23 ENTERPRISE MANAGER/blood draw completed Betty Marrufoo [facility] 03/21/2023 11:13:12 11/22/19 23 Blood Draw/ENTERPRISE MANAGER/PSA RESULTS completed Arthur arora MD, PHD [address] [place] [address] [address], [place], [address], [facility] 11/21/2022 11:06:12 07/04/20 22 Blood Draw/ENTERPRISE MANAGER/PSA RESULTS completed Arthur arora MD, PHD [address] [place] [address], [place], [address], [facility] 07/04/2022 14:51:46 03/06/20 22 Blood Draw/ENTERPRISE MANAGER/PSA RESULTS [facility] 03/06/2022 11:16:59 11/01/19 22 Blood Draw/ENTERPRISE MANAGER/PSA RESULTS completed Arthur arora MD, PHD [address] [place] [address], [place], [address], [facility] 10/31/2021 10:40:14 07/11/20 21 PSA RESULTS completed Arthur arora MD, PHD [address] [place] [address], [place], [address], [facility] 07/11/2021 15:41:42 05/04/20 21 Blood Draw/ENTERPRISE MANAGER/PSA RESULTS completed Arthur arora MD, PHD [address] [place] [address],[address], [place], [address], [facility] 05/04/2021 12:13:23 04/13/20 21 Cardoza Catheter Removal completed Sandra Fay [facility] 04/13/2021 12:42:32 04/06/20 21 Bladder Scan completed Betty Obregon [facility] 04/06/2021 13:36:26 03/27/20 21 Cardoza Catheter Removal completed Betty Obregon [facility] 03/27/2021 13:48:25 10/28/19 21 Prostate Biopsy Procedure completed Marc Adams MD [address] [place] [address],[address] [address], [facility] 10/27/2020 18:02:22 10/28/19 21 Rocephin/Ceftriaxon e completed Bettina [facility] 10/27/2020 13:53:23 10/28/19 21 URONAV completed Bettina [facility] 10/27/2020 10:58:30 04/05/20 20 Bladder Scan completed Rachael Mabry [facility] 04/05/2020 12:21:51 08/07/19 19 colonoscopy completed Rachael Mabry [facility] 04/27/2021 11:32:12 Vasectomy completed Arthur arora MD, PHD [address] [place] [address],[address], [address], [facility] 01/04/2021 14:04:14 cholecystectomy completed Arthur arora MD, PHD [address] [place] [address],[address], [address], [facility] 01/04/2021 14:04:22 anastomosis of cystic duct completed Arthur arora MD, PHD [address] [place] [address],[address], [address], [facility] 01/04/2021 14:05:00 Imaging Results Imaging Date Name Status LastModified by Organ atani Details LastModified Time 12/11/2023 PET-CT, skull base to mid-thigh scan completed [email or web address] [facility] [address], [place], [address], 04/17/2024 20:59:50 12/11/2023 PET-CT, skull base to mid-thigh scan completed MELLY [facility] [address], [place], [address], 12/18/2023 10:50:13 Procedure Notes None recorded. Medical Equipment None Reported. Allergies No known drug allergies Medications Name Sig Start Date Stop Date Status Note LastModified by Organization Details LastModified Time Trimix 30 papaverine/ 1 phentolamin e/10 PGE-1 inject 10 units intracave rnosal as directed PRN for sexual activity. titrate by 5 units until desired response. 2023 active Not Available Not Available Not Avai lable Trimix 30 papaverine/ 1 phentolamin e/40 PGE-1 0.3-0.6 cc as needed inject 10 UNITS INTRACAVE RNOSALLY INSTRUCTE D NEEDED FOR SEXUAL ACTIVITY. INCREASE/ DECREASE BY 5 UNITS UNTIL DESIRED EFFECT ACHIEVED. 2023 active Not Available Not Available Not Avai [...] TAKE 1 TABLET BY MOUTH ONCE DAILY 03/25 completed Not Available Not Available Not Available amlodipine 5 mg tablet TAKE 1 [...] active Not Available Not Available Not Available lisinopril 40 mg tablet TAKE 1 TABLET BY MOUTH ONCE DAILY active Not Available Not Available No t Available amoxicillin 875 mg-potassiu m clavulanate 125 [...] Not Available Vitals Date Recorded Body height Provider Name an d Address Organization Details Last Updated DateTime 03/21/2023 185.42 cm Betty Obregon [facility] 03/21/2023 11:12:23 Date Recorded Body mass index (BMI) Body weight Provider Name and Address Organization Details Last Updated DateTime 03/21/2023 26.3 kg/m2 61453.88 g Arthur Spence MD, PHD [address], [address], [facility] 03/21/2023 11:34:51 Date Recorded Body height Body mass index (BMI) Body weight Provider Name and Address Organization Details Last Updated DateTime 03/27/2023 185.42 cm 26.3 kg/m2 38658.88 g Anna Romeo [facility] 03/27/2023 15:22:42 Date Recorded Body height Body mass index (BMI) Body weight Provider Name and Address Organization Details Last Updated DateTime 06/05/2023 185.42 cm 26.3 kg/m2 95669.88 g Arthur torres MD, PHD [address] [place] [address] 06/05/2023 11:54:56 Date Recorded Body height Body mass index (BMI) Body weight Provider Name and Address Organization Details Last Updated DateTime 12/04/2023 185.42 cm 26.3 kg/m2 46351.88 g Arthur torres MD, PHD [address] [place] [address] 12/04/2023 14:45:51 Date Recorded Body height Body mass index (BMI) Body weight Provider Name and Address Organization Details Last Updated DateTime 03/25/2024 185.42 cm 27.7 kg/m2 44873.4 g Arthur torres MD, PHD [address] [place] [address] [facility] 03/25/2024 14:56:32 Social History Question Answer Notes LastModified by Organizat ion Details LastModified Time Tobacco Smoking Status Former Smoker Alexi Kuhn [facility] 04/05/2020 12:12:07 What Is Your Level Of Alcohol Consumption? Moderate Information not available 04/05/2020 What Is Your Level Of Caffeine Consumption? Moderate Information not available 04/05/2020 How Much Tobacco Do You Chew? None Information not available 10/27/2020 Do You Or Have You Ever Used E-cigarettes Or Vape? Never Used Electronic Cigarettes [email or web address] Information not available 10/27/2020 When Did You Quit Smoking? 14+yearssincela muna [email or web address] Information not available 10/27/2020 Ethnicity Not / [email or web address] Information not available 10/27/2020 Preferred Language Turkmen [email or web address] Information not available 10/27/2020 Marital Status Informatio n not available 04/05/2020 What Was The Date Of Your Most Recent Tobacco Screening? 03/25/2024 [email or web address] Information not available 03/25/2024 How Much Tobacco Do You Smoke? 1 PPD Information not available 04/05/2020 How Many Years Have You Smoked Tobacco? 20 Information not available 04/05/2020 Sex: Unknown Functional Status None recorded. Mental Status None recorded. Family History Relationship Description Onset Age of this Age Resolved Age Notes LastModified by Organization Details LastModified Time Mother Family history of malignant neoplasm [email or web address] Not available 2019 12:11:36 Father Family history of Hypertension [email or web address] Not available 12:11:54 Medical History Condition Response Sexually Transmitted Infection N Diabetes N Bleeding Disorder N Other N High Blood Pressure Y Kidney Stones N Cancer Y Lung Disease N Depression N High Cholesterol Y GERD/Acid Reflux Y Heart Disease N Immunizations Vaccine Type Date Status Provider Name and Address Organization Details Recorded Time Pneumococcal conjugate PCV 13 [facility]23/2018 [facility] 15:22:48 Influenza, adjuvanted, trivalent, PF 07/05/2019 [facility] 03/27[facility]2023 15:22:47 zoster recombinant 09/30/2019 [facility] 03/27/2023 15:22:48 zoster recombinant 07/05/2019 [facility] 03/27/2023 15:22:48 Influenza, adjuvanted, quadrivalent, PF [facility] 15:22:48 COVID-19, mRNA, LNP-S, PF, 100 mcg/0.5mL dose or 50 mcg/0.25mL dose 09/15/2020 completed Anna love [facility] 03/27/2023 15:22:48 COVID-19, mRNA, LNP-S, PF, 100 mcg/0.5mL dose or 50 mcg/0.25mL dose 10/12/2020 completed Anna love [facility] 03/27/2023 15:22:48 COVID-19, mRNA, LNP-S, PF, 100 mcg/0.5mL dose or 50 mcg/0.25mL dose 06/07/2021 eduin Dominguezauer null, [facility] 03/27/2023 15:22:48 pneumococcal polysaccharide PPV23 12/29/2013 completed Anna Romeo ivan, [facility] 03/27/2023 15:22:48 influenza, unspecified formulation 04/11/2009 [facility] 03/27/2023 15:22:48 influenza, unspecified formulation 04/20/2007 completed Anna Romeo null, [facility] 03/27/2023 15:22:48 influenza, unspecified formulation 05/05/2008 completed Anna Romeo null, [facility] 03/27/2023 15:22:48 influenza, unspecified formulation 05/21/2006 [facility] 03/27/2023 15:22:48 Tdap 07/28/2007 [facility] 03/27/2023 15:22:48 Tdap 03/06/2017 [facility] 03/27/2023 15:22:48 Pneumococcal conjugate PCV 13 02/07/2016 completed Anna love, [facility] 03/27/2023 15:22:48 zoster live 04/14/2013 [facility] 03/27/2023 15:22:48 Influenza, high-dose, trivalent, PF 05/16/2018 [facility] 03/27/2023 15:22:48 Influenza, split virus, trivalent, PF 04/09/2013 completed Anna Romeo null, [facility] 03/27/2023 15:22:48 Influenza, split virus, quadrivalent, PF 05/16/2020 [facility] 03/27/2023 15:22:48 Past Encounters Encounter ID Performer Location Encounter Start Date Encounter Closed Date Diagnosis/Indication Diagnosis SNOMED-CT Code Diagnosis ICD10 Code [id number] Marc Adams MD [facility] [address] [place], [place] [address] 04/05/2020 11:47:22 04/05/2020 14:13:34 Prostate specific antigen above reference range 457297904 R97.20 [id number] Marc Adams MD [facility] [address] [place], [place] [address] 10/27/2020 13:43:29 11/01/2020 10:22:04 Prostate specific antigen above reference range 839347002 R97.20 [id number] Marc Adams MD [facility] [address] [facility] [address] [place] [id number] 11/15/2020 16:46:56 11/16/2020 16:46:43 Carcinoma of prostate 004540364 C61 [id number] Arthur stockton MD, PHD [address] [place] [address] 01/04/2021 13:49:19 01/08/2021 09:50:13 Malignant tumor of prostate 402702921 C61 [id number] Arthur stockton MD, PHD [facility] [facility] [address] [place] [address] 03/27/2021 12:08:16 04/17/2021 03:54:20 Malignant tumor of prostate 022595819 C61 [id number] Arthur stockton MD, PHD [facility] [facility] [address] [place] [address] 04/06/2021 11:50:34 04/09/2021 11:41:34 Malignant tumor of prostate 028379143 C61 Lymphocele 802770772 I89 .8 [id number] Sandra Fay [facility] [facility] [address] [place] [id number] 04/13/2021 12:22:28 04/16/2021 09:06:51 Malignant tumor of prostate 400140177 C61 [id number] Arthur stockton MD, PHD [facility] [address] [facility] [address] [place] [id number] 05/04/2021 12:01:30 05/07/2021 17:02:30 Malignant tumor of prostate 342586930 C61 Lymphocele 073760523 I89 .8 [id number] Arthur stockton MD, PHD [facility] [address] [place] [address] 07/11/2021 15:28:44 07/18/2021 15:33:16 Malignant tumor of prostate 850437366 C61 Lymphocele 252751951 I89 .8 Secondary erectile dysfunction 586340188 N52.39 [id number] Arthur stockton MD, PHD [facility] [address] [place] [address] 10/31/2021 10:08:23 11/02/2021 08:52:02 Malignant tumor of prostate 459202272 C61 Lymphocele 348410048 I89 .8 Secondary erectile dysfunction 646334260 N52.39 [id number] Arthur stockton MD, PHD [facility] [address] [place] [address] 03/06/2022 10:58:19 03/07/2022 13:42:12 Malignant tumor of prostate 886089581 C61 Lymphocele 565928714 I89 .8 Secondary erectile dysfunction 295002296 N52.39 [id number] Arthur stockton MD, PHD [facility] [address] [place] [address] 07/04/2022 14:42:59 07/08/2022 11:45:13 Malignant tumor of prostate 194785501 C61 Lymphocele 158336980 I89 .8 Secondary erectile dysfunction 620237162 N52.39 [id number] Arthur stockton MD, PHD [facility] [address] [place] [address] 11/21/2022 10:33:59 11/28/2022 14:27:49 Malignant tumor of prostate 279963275 C61 Lymphocele 609068637 I89 .8 Secondary erectile dysfunction 168418451 N52.39 [id number] Arthur stockton MD, PHD [facility] [address] [place] [address] 03/21/2023 10:38:57 03/29/2023 21:05:01 Malignant tumor of prostate 261606368 C61 Lymphocele 522005736 I89 .8 Secondary erectile dysfunction 686054030 N52.39 [id number] Wes Collazo MD [address] [place] [address] 03/27/2023 15:16:33 04/01/2023 14:29:43 Malignant tumor of prostate 528468384 C61 Secondary erectile dysfunction 013483463 N52.39 [id number] Arthur stockton MD, PHD [address] [place] [address] 06/05/2023 11:35:52 06/11/2023 09:44:24 Malignant tumor of prostate 489680739 C61 Secondary erectile dysfunction 136628412 N52.39 [id number] Arthur stockton MD, PHD [address] [place] [address] 12/04/2023 13:52:49 12/09/2023 10:29:43 Malignant tumor of prostate 751234437 C61 Secondary erectile dysfunction 874548383 N52.39 [id number] Arthur stockton MD, PHD [address] [place] [address] 03/25/2024 14:37:07 04/01/2024 10:26:25 Malignant tumor of prostate 861116916 C61 Secondary erectile dysfunction 241915519 N52.39 Health Concerns Section Related Observation LastModified by Organization Detai ls LastModified Time None Recorded Concern Status LastModified by Organization Details LastModified Time None Recorded Advance Directives Directive None Recorded Payers Encounter Date Sequence Insurance Name Policy Number Policy Freitas Covered Member ID Freitas Member ID Guarantor Name 03/21/2023 1 [place] [id number] Kyree Webster [id number] Kyree Webster 03/27/2023 1 [place] [id number] Kyree Webster [id number] Kyree Webster 06/05/2023 1 [place] [id number] Kyree Webster [id number] Kyree Webster 12/04/2023 1 [place] [id number] Kyree Webster [id number] Kyree Webster 03/25/2024 1 [place] [id number] Kyree Webster [id number] Kyree Webster Notes Date Note Type Note Provider Name and Address Organization Details Recorded Time 03/21/2023 text/html HPI Notes: 73M s /p RALP + PLND on 03/13/21 for pT2N1 [place] 3+4=7 prostate cancer (-SMS, -SVI, 1/7 LN). Voiding with strong stream. Minimal leakage now. Not wearing pads. Tadalafil not working; using ICI per Dr Collazo. 04/09/21 CT A/P: interval increase in b/l lymphoceles 04/19/21 CT-guided drain placement to b/l fluid collections 04/26-04/29: Admission at [facility] with fevers; Pseudomonas on culture of drain fluid; treated with Augmentin and cipro x14 days per ID 04/27/21 CT A/P: no residual fluid collection on right; minimal residual fluid at left pelvic side wall; right drain was removed UF: 07/25 Date of complete continence: 04/20/21 EF: 11/22; good with ICI Pre-op ED: 2-09/22 PSA Results 05/04/21 <0.04 07/11/21 <0.04 10/31/21 <0.04 03/06/22 0.04 07/04/22 0.10 11/21/22: 0.20 03/21/23: 0.16 Arthur Spence MD, PHD [address] [facility],[address], [place], [address], [facility] 03/21/2023 12:10:57 03/27/2023 text/html HPI Notes: 73M s /p RALP + PLND on 03/13/21 for pT2N1 [place] 3+4=7 prostate cancer (-SMS, -SVI, 1/7 LN). Voiding with strong stream. Minimal leakage now. Not wearing pads. Tadalafil not working; using ICI per Dr Collazo. 04/09/21 CT A/P: interval increase in b/l lymphoceles 04/19/21 CT-guided drain placement to b/l fluid collections 04/26-04/29: Admission at [facility] with fevers; Pseudomonas on culture of drain fluid; treated with Augmentin and cipro x14 days per ID 04/27/21 CT A/P: no residual fluid collection on right; minimal residual fluid at left pelvic side wall; right drain was removed UF: 07/25 Date of complete continence: 04/20/21 EF: 5/5; good with ICI Pre-op ED: -09/22 PSA Results 05/04/21 <0.04 07/11/21 <0.04 10/31/21 <0.04 03/06/22 0.04 07/04/22 0.10 11/21/22: 0.20 03/21/23: 0.16 03/27/2023: ([place]) Here for follow-up erectile dysfunction following radical prostatectomy. Has been utilizing intracavernosal injection therapy. Current dosage: Trimix 30 ? 1 ? 10 at 15-20 units with excellent response. Wes Collazo MD [address] [facility],[address], [place], [address], [facility] 03/27/2023 15:46:27 06/05/2023 text/html HPI Notes: 73M s /p RALP + PLND on 03/13/21 for pT2N1 [place] 3+4=7 prostate cancer (-SMS, -SVI, 1/7 LN). Voiding with strong stream. Minimal leakage now. Not wearing pads. Tadalafil not working; using ICI per Dr Collazo. 04/09/21 CT A/P: interval increase in b/l lymphoceles 04/19/21 CT-guided drain placement to b/l fluid collections 04/26-04/29: Admission at [facility] with fevers; Pseudomonas on culture of drain fluid; treated with Augmentin and cipro x14 days per ID 04/27/21 CT A/P: no residual fluid collection on right; minimal residual fluid at left pelvic side wall; right drain was removed UF: 07/25 Date of complete continence: 04/20/21 EF: 5/5; good with ICI Pre-op ED: 2-3/ PSA Results 05/04/21 <0.04 07/11/21 <0.04 10/31/21 <0.04 03/06/22 0.04 07/04/22 0.10 11/21/22: 0.20 03/21/23: 0.16 06/05/23: 0.17 Arthur Spence MD, PHD [address] [place] [address],[address], [place], [address], [facility] 06/05/2023 12:30:24 12/04/2023 text/html HPI Notes: 73M s /p RALP + PLND on 03/13/21 for pT2N1 [place] 3+4=7 prostate cancer (-SMS, -SVI, 07/27 LN). Voiding with strong stream. Minimal leakage now. Not wearing pads. Tadalafil not working; using ICI per Dr Collazo. 04/09/21 CT A/P: interval increase in b/l lymphoceles 04/19/21 CT-guided drain placement to b/l fluid collections 04/26-04/29: Admission at [facility] with fevers; Pseudomonas on culture of drain fluid; treated with Augmentin and cipro x14 days per ID 04/27/21 CT A/P: no residual fluid collection on right; minimal residual fluid at left pelvic side wall; right drain was removed UF: 07/25 Date of complete continence: 04/20/21 EF: 5/5; good with ICI Pre-op ED: 2-3 PSA Results 05/04/21 <0.04 07/11/21 <0.04 10/31/21 <0.04 03/06/22 0.04 07/04/22 0.10 11/21/22: 0.20 03/21/23: 0.16 06/05/23: 0.17 12/04/23: 0.43 Arthur Spence MD, PHD [address] [facility],[address], [place], [address], [facility] 12/04/2023 15:04:13 03/25/2024 text/html HPI Notes: 74M s /p RALP + PLND on 03/13/21 for pT2N1 [place] 3+4=7 prostate cancer (-SMS, -SVI, 1/7 LN). Voiding with strong stream. Minimal leakage now. Not wearing pads. Tadalafil not working; using ICI per Dr Collazo. Having some foot pain, possibly neuropathy. 04/09/21 CT A/P: interval increase in b/l lymphoceles 04/19/21 CT-guided drain placement to b/l fluid collections 04/26-04/29: Admission at [facility] with fevers; Pseudomonas on culture of drain fluid; treated with Augmentin and cipro x14 days per ID 04/27/21 CT A/P: no residual fluid collection on right; minimal residual fluid at left pelvic side wall; right drain was removed 12/11/23: PSMA-PET: mild activity in hilar nodes and lung c/w inflammation, no definite evidence of recurrence UF: 07/25 Date of complete continence: 04/20/21 EF: 5/; good with ICI Pre-op ED: 2-09/22 PSA Results 05/04/21 <0.04 07/11/21 <0.04 10/31/21 <0.04 03/06/22 0.04 07/04/22 0.10 11/21/22: 0.20 03/21/23: 0.16 06/05/23: 0.17 12/04/23: 0.43 03/25/24: 1.1 Arthur Spence MD, PHD [address] [place] [address],[address], [place], [address], [facility] 03/25/2024 15:50:34
--- OUTSIDE RECORDS SUMMARY | 2024-04-27 08:34 | XMS_ITS | Referral Summary ---
Author Organization [facility] Address [address] [place] [address] Care Team Providers Care Kaiako Kura Tuarua Name Role Phone Aung Almaguer MD Primary Care Provider [phone] Allergies Active Allergy Reactions Criticality Noted Date [...] LAB - BEAK ER POCT LABORATORY POC [facility] [address] floor, [address] [place] [address], [place] [phone] from Last 3 Months or Most Recently Relevant to Health Maintenance Advance Directives For more information, please contact: [phone] * Full Code (Latest Code Status on File) Date Activated Date Inactivated Comments 03/13/2021 7:48 PM 03/15/2021 3:34 PM All basic an d advanced life-sustaining interventions are performed as appropriate Question Answer Comments Code status determined by: Unable to dis cuss and no AD/POLST on file; continue PREVIOUSLY ORDERED code status Care Teams Kaiako Kura Tuarua Relationship Specialty Start Date End Date Aung Almaguer MD PCP - General Family Practice 03/02/19
--- OUTSIDE RECORDS SUMMARY | 2024-04-27 08:34 | XMS_ITS | Continuity of Care Document ---
Author Organization [facility], [facility] Address [address] [place] [address] Care Team Providers Care Assembler Skylights Name Role Phone OMID CAGLE Primary Care Provider [phone] Assessment Encounter Date Assessment Date Assessment LastModified by Organization Details LastModified Time 03/25/2024 03/25/2024 74M s/p RALP + PLND on 03/13/21 for pT2N1 [place] 3+4=7 prostate cancer (-SMS, -SVI, 07/27 LN). [...] Details Last Modified Time Details Appointments None recorded . Lab PSA, serum or plasma 024 03/25/20 24 [email or web address] [facility], [address], [place], [address], 15:08:12 Referral None recorded . Procedures None recorded . Surgeries None recorded . Imaging None recorded . Medication Orders None recorded . Patient TargetsNo targets recorded. Patient InstructionsNo instructions recorded. Reason for Referral Referring Physician: Marc ewing, Urology, Encounter Date: 11/15/2020 Urologist Referral for Carci noma of prostate Referring Physician: Marc Adams, Urology, Encounter Date: 12/12/2020 Interventional Radiologist Rahul watson for Lymphocele aspiration and drain placement of right and left pelvic lymphoceles Referring Physician: Dai Mendozay, Encounter Date: 04/10/2021 Results Created Date Observation Date Name Description Value Unit Range Abnormal Flag Note LastModifiedBy Organization Detail LastModifiedTime 03/25/20 24 03/25/2024 PSA, serum or plasm a PSA 1.1 ng/mL 0-4.0 NG/mL Not Available [facility] [address] [place], [address], 03/24/2024 15:11:50 Result Notes None recorded. Problems Name Problem SNOMED Code Status Onset Date Resolution Date Notes Provider Name and Address Organization Details Recorded Time Malignant tumor of prostate 991480826 Active 2020 Mason hong MD, PHD [address] [place] [address], [phone], [facility] 14:03:56 Lymphocele 439164934 Active 2020 Mason hong MD, PHD [address] [place] [address], [phone], [facility] 13:14:42 Secondary erectile dysfunction 506465012 Active 2020 Mason hong MD, PHD [address] [place] [address], [phone], [facility] 16:04:45 Problem Notes None recorded. Procedures Surgical History Date Name Laterality Status Provider Name and Address Organization Details Recorded Time 03/25/20 24 COMPLEX VISIT completed Mason arora MD, PHD [address] [place] [address],[address], [address], [facility] 03/25/2024 15:50:14 03/25/20 RELATIONS MGR/blood draw completed Betty Obregon [facility] 03/24/2024 15:11:52 12/04/19 24 COMPLEX VISIT completed Mason arora MD, PHD [address] [place] [address],[facility] [address], [place], [address], [facility] 12/04/2023 15:00:17 12/04/19 24 RELATIONS MGR/blood draw completed Bettie Michele [facility] 11/20/2023 17:04:48 06/05/20 23 RELATIONS MGR/blood draw completed Mason arora MD, PHD [address] [place] [address],[facility] [address], [place], [address], [facility] 06/05/2023 11:55:34 03/21/20 23 RELATIONS MGR/blood draw completed Betty Obregon [facility] 03/21/2023 11:13:12 11/22/19 23 Blood Draw/RELATIONS MGR/PSA RESULTS completed Mason arora MD, PHD [address] [place] [address] [address], [place], [address], [facility] 11/21/2022 11:06:12 07/04/20 22 Blood Draw/RELATIONS MGR/PSA RESULTS completed Mason arora MD, PHD [address] [place] [address] [address], [place], [address], [facility] 07/04/2022 14:51:46 03/06/20 22 Blood Draw/RELATIONS MGR/PSA RESULTS completed Betty Obregon [facility] 03/06/2022 11:16:59 11/01/19 22 Blood Draw/RELATIONS MGR/PSA RESULTS completed Mason arora MD, PHD [address] [place] [address],[facility] [address], [place], [address], [facility] 10/31/2021 10:40:14 07/11/20 21 PSA RESULTS completed Mason arora MD, PHD [address] [place] [address] [address], [place], [address], [facility] 07/11/2021 15:41:42 05/04/20 21 Blood Draw/RELATIONS MGR/PSA RESULTS completed Mason arora MD, PHD [address] [place] [address] [address], [address] 05/04/2021 12:13:23 04/13/20 21 Cardoza Catheter Removal completed Sandra Fay [facility] 04/13/2021 12:42:32 04/06/20 21 Bladder Scan completed Betty Obregon [facility] 04/06/2021 13:36:26 03/27/20 21 Cardoza Catheter Removal completed Betty Obregon [facility] 03/27/2021 13:48:25 10/28/19 21 Prostate Biopsy Procedure completed Marc Adams MD [address] [place] [address],[address] 10/27/2020 18:02:22 10/28/19 21 Rocephin/Ceftriaxon e completed Bettina Montgomery [facility] 10/27/2020 13:53:23 10/28/19 21 URONAV completed Bettina Montgomery [facility] 10/27/2020 10:58:30 04/05/20 20 Bladder Scan completed Rachaelyessi Mabry [facility] 04/05/2020 12:21:51 08/07/19 19 colonoscopy completed Rachael Mabry [facility] 04/27/2021 11:32:12 Vasectomy completed Mason arora MD, PHD [address] [place] [address],[place] [address], [facility] 01/04/2021 14:04:14 cholecystectomy completed Mason arora MD, PHD [address] [place] [address], [facility] 01/04/2021 14:04:22 anastomosis of cystic duct completed Mason arora MD, PHD [address] [place] [address], [facility] 01/04/2021 14:05:00 Imaging Results None recorded. Procedure [...] Updated DateTime 03/25/2024 185.42 cm 27.7 kg/m2 93174.4 g Mason torres MD, PHD [address] [place] [address],[facility] [address], [place], [address] 03/25/2024 14:56:32 Social History Question Answer Notes LastModified by Organizat ion Details LastModified Time Tobacco Smoking Status [facility] 04/05/2020 12:12:07 What Is Your Level Of Alcohol Consumption? Moderate Information not available 04/05/2020 What Is Your Level Of Caffeine Consumption? Moderate Information not available 04/05/2020 How Much Tobacco Do You Chew? None [email or web address] Information not available 10/27/2020 Do You Or Have You Ever Used E-cigarettes Or Vape? Never Used Electronic Cigarettes Information not available 10/27/2020 When Did You Quit Smoking? 16+yearssincela muna Information not available 10/27/2020 Ethnicity Not / [email or web address] Information not available 10/27/2020 Preferred Language Hungarian [email or web address] Information not available 10/27/2020 Marital Status Informatio n not available 04/05/2020 What Was The Date Of Your Most Recent Tobacco Screening? 03/25/2024 [email or web address] Information not available 03/25/2024 How Much Tobacco [...] Not available 12:11:54 Medical History Condition Response Other N High Blood Pressure Y Kidney Stones N Lung Disease N Depression N GERD/Acid Reflux Y Sexually Transmitted Infection N Diabetes N Bleeding Disorder N Cancer Y High Cholesterol Y Heart Disease N Immunizations Vaccine Type Date Status Provider Name and Address Organization Details Recorded Time Pneumococcal conjugate PCV 13 03/23/2018 [facility]/27[facility] 15:22:48 Influenza, adjuvanted, trivalent, PF 07/05/2019 [facility] 03/27/2023 15:22:47 zoster recombinant 09/30/2019 [facility] 03/27/2023 15:22:48 zoster recombinant 07/05/2019 [facility] 03/27/2023 15:22:48 Influenza, adjuvanted, quadrivalent, PF 05/18/2021 [facility] 03/27/2023 15:22:48 COVID-19, mRNA, LNP-S, PF, 100 mcg/0.5mL dose or 50 mcg/0.25mL dose 09/15/2020 [facility] 03/27/2023 15:22:48 COVID-19, mRNA, LNP-S, PF, 100 mcg/0.5mL dose or 50 mcg/0.25mL dose 10/12/2020 [facility] 03/27/2023 15:22:48 COVID-19, mRNA, LNP-S, PF, 100 mcg/0.5mL dose or 50 mcg/0.25mL dose 06/07/2021 [facility] 03/27/2023 15:22:48 pneumococcal polysaccharide PPV23 12/29/2013 [facility] 03/27/2023 15:22:48 influenza, unspecified formulation 04/11/2009 completed Anna Romeo ivan, [facility] 03/27/2023 15:22:48 influenza, unspecified formulation 04/20/2007 completed Anna Calixtokevin null, [facility] 03/27/2023 15:22:48 influenza, unspecified formulation 05/05/2008 completed Anna Calixtokevin ivan, [facility] 03/27/2023 15:22:48 influenza, unspecified formulation 05/21/2006 completed Anna Calixtokevin null, [facility] 03/27/2023 15:22:48 Tdap 07/28/2007 completed Anna Calixtotiffanyauer null, [facility] 03/27/2023 15:22:48 Tdap 03/06/2017 completed Anna Calixtokevin ivan, [facility] 03/27/2023 15:22:48 Pneumococcal conjugate PCV 13 02/07/2016 [facility] 03/27/2023 15:22:48 zoster live 04/14/2013 completed Anna Calixtokevin ivan, [facility] 03/27/2023 15:22:48 Influenza, high-dose, trivalent, PF 05/16/2018 [facility] 03/27/2023 15:22:48 Influenza, split virus, trivalent, PF 04/09/2013 completed Anna Calixtokevin ivan, [facility] 03/27/2023 15:22:48 Influenza, split virus, quadrivalent, PF 05/16/2020 [facility] 03/27/2023 15:22:48 Past Encounters Encounter ID Performer Location Encounter Start Date Encounter Closed Date Diagnosis/Indication Diagnosis SNOMED-CT Code Diagnosis ICD10 Code [id number] Mason stockton MD, PHD [facility] [address] [address] 03/25/2024 14:37:07 04/01/2024 10:26:25 Malignant tumor of prostate 895381488 C61 Secondary erectile dysfunction 682481253 N52.39 Health Concerns Section Related Observation LastModified by Organization Detai ls LastModified Time None Recorded Concern Status LastModified by Organization Details LastModified Time None Recorded Payers Encounter Date Sequence Insurance Name Policy Number Policy Freitas Covered Member ID Freitas Member ID Guarantor Name 03/25/2024 1 [facility]: (MEDICARE REPLACEMENT PPO) [id number] Kyree Webster [id number] Kyree Webster Notes Date Note Type Note Provider Name and Address Organization Details Recorded Time 03/25/2024 text/html HPI Notes: 74M s /p [...] to b/l fluid collections 04/26-04/29: Admission at [facility] with fevers; Pseudomonas on culture [...] 0.16 06/05/23: 0.17 12/04/23: 0.43 03/25/24: 1.1 Mason Spence MD, PHD [address] [facility],[address], [place], [address], [facility] 03/25/2024 15:50:34
--- OUTSIDE RECORDS SUMMARY | 2024-04-27 08:34 | XMS_ITS | Clinical Summary ---
Author Organization [facility] Address [address] [place] [address] Care Team Providers Care Environmental Health Manager Name Role Phone Aung Almaguer MD Primary Care Provider [phone] Allergies Active Allergy Reactions Criticality Noted Date [...] 1948 ANNUAL REVIEW OF HM ORDERS 1948 HEPATITIS C SCREENING 1966 LIPID 1988 LUNG CANCER SCREENING 1998 FALL RISK ASSESSMENT 2013 RSV VACCINE (1 - 1-dose 75+ series) 2023 PHQ-2 (once per calendar year) 2023 GLUCOSE 03/14/2024 03/14/2021, 08/0 11/2020, 02/23/2019 COVID-19 Vaccine ( season) 2024 05/03/2022, 06/07/2021, 10/12/2020, Additional history exists INFLUENZA VACCINE (#1) 2024 , 05/18/2021, 05/18/2021, Additional history exists DTAP/TDAP/TD IMMUNIZATION (3 - Td or Tdap) 03/06/2027 03/06/2017, 07/28/2007 Pneumococcal Vaccine: 65+ Years Completed 03/23/2018, 02/07/2016, 12/29/2013 COLONOSCOPY Discontinued 08/06/2018 COLORECTAL CANCER SCREENING Discontinued ZOSTER IMMUNIZATION Completed 09/30/2019, 07/05/2019, 04/14/2013 CT COLONOGRAPHY Discontinued FIT Discontinued FLEX SIG Discontinued HPV IMMUNIZATION Aged Out No longer e ligible based on patient's age to complete this topic MENINGITIS IMMUNIZATION Aged Out No l onger eligible based on patient's age to complete this topic RSV MONOCLONAL ANTIBODY Aged Out No l onger eligible based on patient's age to complete this topic sDNA (Cologuard) Discontinued Procedures Procedure Name Priority Date/Time Associated Diagnosis [...] - BEAK ER POCT LABORATORY POC [facility] [address] floor, [address] [place] [address], [facility] [phone] from Last 3 Months or Most Recently Relevant to Health Maintenance Advance Directives For more information, please contact: [phone] * Full Code (Latest Code Status on File) Date Activated Date Inactivated Comments 03/13/2021 7:48 PM 03/15/2021 3:34 PM All basic an d advanced life-sustaining interventions are performed as appropriate Question Answer Comments Code status determined by: Unable to dis cuss and no AD/POLST on file; continue PREVIOUSLY ORDERED code status Care Teams Environmental Health Manager Relationship Specialty Start Date End Date Aung Almaguer MD PCP - General Family Practice 03/02/19
--- OUTSIDE RECORDS SUMMARY | 2024-04-27 08:34 | XMS_ITS | Clinical Summary ---
Author Organization [facility] Address [place], [place] [address] Care Team Providers Care Retail Product Demo Specialist Name Role Phone Mason Spence MD [...] Date Diagnosed Date Positive culture finding 04/28/2021 Overview (04/28/2021): Abdominal MADISON drainage with Granulicatella species and P aeruginosa Polymicrobial bacterial infection 04/28/2021 Overview (04/28/2021): Multiple bacteria in culture drainage from abdominal MADISON Pseudomonas aeruginosa infection 04/28/2021 Sepsis due to Pseudomonas sp ecies without acute organ dysfunction 04/28/2021 Fever 04/26/2021 Lymphocele 04/06/2021 Prostate cancer 01/04/2021 Bile leak 02/23/2019 Gout 02/23/2019 Erectile dysfunction 02/23/2019 Hypertension 02/23/2019 Hyperlipidemia 02/23/2019 Diverticulosis of colon 02/23/2019 Alcohol abuse 02/23/2019 Overview (02/23/2019): 6 beers per day Family History Medical [...] for age 18-79 1966 Tetanus booster 1968 Zoster (shingles) series for age 50+ (1 of 2) 1998 Medicare Wellness for age 65+ 2013 Pneumococcal series for age 65+ (1 of 1 - PCV) 2013 RSV vaccine for adults or pr egnancy (1 - 1-dose 75+ series) 2023 COVID-19 vaccine series ( season) 2024 06/07/2021, 10/12/2020, 09/15/2020 Influenza for age 65+ 03/21/2024 Medical Devices Implanted Type Area Exercise Planner Device Identifier Shelf Expiration Date Model / Serial / Lot Stent Biliary [id number] Advanixduodenal Bend Plst - [id number] Implanted:Qty: 1 on 02/24/2019 by Gary Rivera MD at [facility] M005 [id number] # / / [id number] Advance Directives * Full Code (Latest Code Status on File) Date Activated Date Inactivated Comments 04/26/2021 7:31 PM 04/29/2021 2:03 PM Question Answer Comments Code Status Discussion: Discussed * Full Code Date Activated Date Inactivated Comments 02/23/2019 12:19 AM 02/28/2019 5:11 PM Care Teams Retail Product Demo Specialist Relationship Specialty Start Date End Date Luis Washington MD [address] [place] [id number] PCP - General Family Practice 04/17/21 Mason Spence MD [address] [place] [id number] Surgery - Urology 04/12/21
--- OUTSIDE RECORDS SUMMARY | 2024-04-27 08:34 | XMS_ITS | Data Portability ---
Author Organization [facility] Address [address] [place] [address] Care Team Providers Care Shoe Worker Name Role Phone [facility] OTHER [phone] Assessment Encounter Date Assessment Date Assessment LastModified by Organization Details LastModified Time 11/18/2019 11/18/2019 Care team to assess eligibility. RNCC to schedule follow up appointment as appropriate. mnanti Not available 11/18/2019 18:15:07 Plan of Treatment Reminders Order Date Submit Date Provider Last Modified By Organization Details Last Modified Time Details Appointments None record ed. Lab None record ed. Referral None record ed. Procedures None record ed. Surgeries None record ed. Imaging None record ed. Medication Orders None record ed. Patient TargetsNo targets recorded. Patient Instructions Encounter Date Encounter Id Patient Instructions Last Modified By Organization Details Last Modified Time 11/18/2019 [id number] Patient instructed to call with questions or concerns. mnanti Not available 11/18/2019 18:15:20 Reason for Referral None Reported. Problems Name Problem SNOMED Code Status Onset Date Resolution Date Notes Provider Name and Address Organization Details Recorded Time Hypertensive disorder 13421592 Active Mahsa Aviles [place], [place] - [facility] 0 17:31:28 History of cholecystectom y 968525474 Active January 2019 Mahsa Snellfelipe [place], [place] - [facility] 0 17:32:12 Problem Notes None recorded. Medical Equipment None Reported. Medications Name Sig Start Date Stop Date Status Note LastModified by Organization Details LastModified Time lisinopril 20 mg tablet Take 1 tablet every day by oral route. active Not Available Not Available No t Available Vitals None Recorded Social History Question Answer Notes LastModified by Organizat ion Details LastModified Time 14. Marital Status: Information not available 11/18/2019 18. Has Reliable Social/Emotion al Support: Yes Information not available 11/18/2019 24. Physical Activity: Exercise 4-7 Times A Week [place] Information not available 11/18/2019 28. Assistance With Walking: No Information not available 11/18/2019 30. Assistance With Transfers: No Information not available 11/18/2019 44. Assistance With Errands: No Information not available 11/18/2019 33. Fallen Two Or More Times In Last Year: No Information not available 11/18/2019 58. Mode Of Transportation : Drives Self Information not available 11/18/2019 Sex: Unknown Functional Status None recorded. Mental Status None recorded. Family History Nothing Reported. Medical History No medical history recorded. Past Encounters Encounter ID Performer Location Encounter Start Date Encounter Closed Date Diagnosis/Indication Diagnosis SNOMED-CT Code [id number] [address] [facility] [place] [address] 11/18/2019 17:12:49 11/18/2019 18:15:44 Health Concerns Section Related Observation LastModified by Organization Detai ls LastModified Time None Recorded Concern Status LastModified by Organization Details LastModified Time None Recorded Advance Directives Directive None Recorded Payers Encounter Date Sequence Insurance Name Policy Number Policy Freitas Covered Member ID Freitas Member ID Guarantor Name 11/18/2019 1 [employer] (MEDICARE REPLACEMENT PPO) [id number] Kyree Webster [id number] Kyree Webster Notes Date Note Type Note Provider Name and Address Organization Details Recorded Time 11/18/2019 text/html HPI Notes: *Init ial intake done via phone due to Covid-19. Verbal consent not given for services, release of information and record sharing. * Patient interests: [place] Social Supports: Significant other, daughter Kyree is a pleasant 69 year old man who lives in his own home. He reports a cholecystectomy in 2019 with complications. Post surgery he developed a necrotic cystic duct causing bile to leak into his abdominal cavity. He was re-hospitalized for a week at [facility]. States they took a liter of fluid out of my abdomin. He recalls this as being a very painful experience. He reports only taking lisinopril, and then only when he thinks about it. He denied any other medical concerns. Kyree is . His about 4 years ago, she suffered from dementia. He does have a significant other and they enjoy playing pickleball and being active. Kyree is not wanting to consent to services over the phone at this time. He can't imagine a time he would need to call as he would utilize the ED in an emergent situation, otherwise he would call his PCP. Talked about [facility] being a PRN service based on where he is at and that we are not here to replace his current PCP, rather to be here for support. When asked, this service writer advisor did explain if he wanted to utilize [facility] services we would need his consent to treat. At the end of the conversation he was open to having information mailed to him and would review materials. He state if they look good he will sign them and mail back. States his daughter works for [employer]. Encouraged him to review information with who he felt appropriate and to call with any questions/concerns. Explained to him RNCC would call in about a week to follow up. Kyree thanked this service writer advisor for the call and information. Patient's address verified Checker/Stocker: [place] - [facility] 11/18/2019 18:15:30
--- NOTE | 2024-04-27 09:19 | W.ANESCHARGE ---
Anesthesia Charges Start Date/Time Anesthesia Start Date: 04/27/24 Anesthesia Start Time: 10:13 Stop Date/Time Anesthesia Stop Date: 04/27/24 Anesthesia Stop Time: 11:05 Summary Extremes of Age - Over 70 or under 1: MDA
--- NOTE | 2024-04-27 11:08 | W.ANESCHARGE ---
Anesthesia Charges Start Date/Time Anesthesia Start Date: 04/27/24 Anesthesia Start Time: 10:13 Stop Date/Time Anesthesia Stop Date: 04/27/24 Anesthesia Stop Time: 11:05 Summary Extremes of Age - Over 70 or under 1: ECONOMICS CONSULTANT
== END 2024-04-27 08:32 | disposition home or self-care (01) ==
LOC: OP CLINIC 08:31
PROVIDERS: PCP Family Medicine; Visit Provider Surgery
DX: Z12.11 Encounter for screening for malignant neoplasm of colon (principal); D12.3 Benign neoplasm of transverse colon; K57.30 Diverticulosis of large intestine without perforation or abscess without bleeding; Z86.0100 Personal history of colon polyps, unspecified
CPT/HCPCS: 00811; 45385; 88305; 99100; J2704